=== PATIENT | female | born 1935 | race Caucasian/White ===

== ENCOUNTER 2017-07-06 08:34 | Day surgery (SDC) | payer MEDICARE, MEDICAID ==
[2017-07-06] VITALS (11 sets, daily range): BP systolic 118–134; BP diastolic 55–86
[~2017-07-06] VITALS: Ht 167.6 cm; Wt 66.3 kg
[~2017-07-06 08:34] MED LIST: ALPR.25T PO; ALPR0.2550 PO; AMLO5TAB2 PO; ASP81TEC PO; ASPI-479 PO; ATOR40TA70 PO; CLOP75TA PO; CLOP75TA69 PO; INDA1.25 PO; NS IV 1000 ML 3,000 ML ONE; OMEG-33 PO
[2017-07-06] MEDS ORDERED: LIDOCAINE 1% INJ 20 ML 20 ML VIAL ONE (09:07)
[2017-07-06] MEDS ORDERED: HEParin 1000 UNIT/ML (10ML VIAL) FOR BOLUS ONE (09:07)
[2017-07-06 09:30] LABS: HEMOGLOBIN 15.9 G/DL (11.5-16.0); MEAN PLATELET VOLUME 11.1 FL (7.4-10.4); RED BLOOD COUNT 5.33 10^6/uL (4.35-5.85); RED CELL DISTRIBUTION WIDTH 14.7 % (10.0-14.5)
[2017-07-06] MEDS ORDERED: NS IV 1000 ML 1,000 ML IV SCH ×2 (09:30→11:21)
[2017-07-06] MEDS ORDERED: AMLO10TA2 PO (09:36)
[2017-07-06] MEDS ORDERED: ROSU10TA26 PO (09:37)
[2017-07-06] MEDS ORDERED: OMEG100032 PO (09:38)
[2017-07-06 09:48] LABS: PROTHROMBIN TIME PATIENT 12.8 SEC (12.2-14.7)
--- NOTE | 2017-07-06 09:52 | Diagnostic Imaging Report ---
INDICATION: Pre-heart catheterization. TIME OF EXAMINATION: 9:30 AM. COMPARISON: 04/30/2015. FINDINGS: The heart size is normal. There is a nodular density over the right lung base measuring 18 mm in size. This is new since the prior exam from 04/30/2015. The remaining lung tamayo are clear. No effusion or pneumothorax is seen. IMPRESSION: New 18 mm pulmonary nodule in the right base since the study from April 2015. A CT chest is recommended for further characterization. Dr. Mitchell was notified of these results prior to this dictation. Dictated by: Dictated on workstation # [id number]
[2017-07-06 09:58] LABS: ALANINE AMINOTRANSFERASE 9 U/L (0-55); ALBUMIN 4.4 GM/DL (3.2-4.5); ALKALINE PHOSPHATASE 82 U/L (40-136); BILIRUBIN,TOTAL 0.6 MG/DL (0.1-1.0); BUN/CREATININE RATIO 18; CALCIUM 10.2 MG/DL (8.5-10.1); CARBON DIOXIDE 29 MMOL/L (21-32); CHLORIDE 102 MMOL/L (98-107); CHOLESTEROL 173 MG/DL (< 200); CREATININE SERUM 0.78 MG/DL (0.60-1.30); GFR ESTIMATED > 60; GLUCOSE 123 MG/DL (70-105); HDL CHOLESTEROL 77 MG/DL (40-60); POTASSIUM 3.3 MMOL/L (3.6-5.0); SODIUM 141 MMOL/L (135-145); TOTAL PROTEIN 7.6 GM/DL (6.4-8.2); TRIGLYCERIDES 100 MG/DL (<150); VLDL CHOLESTEROL 20 MG/DL (5-40)
[2017-07-06] MEDS ORDERED: MIDAZOLAM 5 MG/5 ML (VERSED) VIAL ONE (10:06)
[2017-07-06] MEDS ORDERED: fentaNYL INJECTION 100 MCG/2 ML AMP ONE (10:06)
--- NOTE | 2017-07-06 10:14 | Cardiac Procedure Note-CS/ASA ---
Pre-Procedure Note Pre-Op Procedure Note H&P Reviewed The H&P was reviewed, patient examined and no changes noted. Date H&P Reviewed: July 06, 2017 Time H&P Reviewed: 10:14 Conscious Sedation Pre-Proced Time Reviewed: 10:14 ASA Class: 3 Airway Mallampati Classification: (twenty-nine palms appropriate class) I. II. III, IV Lungs Heart ASA score ASA 1: a normal healthy patient ASA 2: a patient with a mild systemic disease (mid diabetes, controlled hypertension, obesity x ASA 3: a patient with a severe systemic disease that limits activity (angina , COPD, prior Myocardial infarction) ASA 4: a patient with an incapacitating disease that is a constant threat to life (CHF, renal failure) ASA 5: a moribund patient not expected to survive 24 hrs. (ruptured aneurysm) ASA 6: a declared brain patient whose organs are being harvested. For emergent operations, add the letter E after the classification Grade 3 Sedation Plan: Analgesia, Amnesia, Plan communicated to team members, Discussed options with patient/fam, Discussed risks with patient/fam Note The patient is an appropriate candidate to undergo the planned procedure, sedation, and anesthesia. The patient immediately re-assessed prior to indication. SEBASTIÁN ZHANG MD July 06, 2017 10:14
--- NOTE | 2017-07-06 11:23 | Discharge Inst-Post CATH ---
Discharge Inst-CATH Post Cardiac Cath D/C Inst Follow Up/Plan Appointment with Dr. Avina's office next Tuesday at 1 p.m. for evaluation for pulmonary nodules Appointment with Dr. Mitchell's office in 2-4 week CARDIAC CATH DISCHARGE INSTRUCTIONS *Hold Metformin for 48 hours post heart cath. ACTIVITY * Go Home directly and rest. * Limit activity of the leg (or wrist if it was used) for 7 days including aerobics, swimming, jogging, bicycling, etc. * Restrict stair-climbing for 7 days if possible, if not, climb up with your non -cath leg, then bring together on the same step. * Avoid lifting, pushing, pulling or excessive movement of the affected extremity for 7 days. * Customary sexual activity may be resumed after 2 days-use caution not to use a position that strains or causes pain to the affected extremity. * No driving for 24 hours. * NO SMOKING. * Avoid straining for bowel movements for 7 days. * Gentle walking on level ground is allowed. * Returning to work will depend on the type of procedure and the results. Your doctor will discuss this with you. CALL YOUR DOCTOR FOR ANY OF THE FOLLOWING: *If bleeding from the puncture site occurs- Apply gentle pressure to site with clean cloth and call your doctor or EMS. * If a knot or lump forms under the skin, increases in size, or causes pain. * If bruising appears to be worsening or moving further down your leg instead of disappearing. * Temperature above 101 F. CARE OF YOUR GROIN INCISION; * Bruising or purple discoloration of the skin near the puncture site is common. * You may shower only, no bathtub bathing for 5 days. Be careful to avoid slipping as your leg may feel stiff. * If a closure device was used on your femoral artery, please see the attached guide regarding care of the device and your leg. * REMOVE the dressing from your groin the next day after your procedure in the shower. CARE OF YOUR WRIST INCISION; * Bruising or purple discoloration of the skin near the puncture site is common. * You may shower. * DO NOT submerge wrist. * Remove dressing in 24 hours. SEBASTIÁN MITCHELL MD July 06, 2017 11:23
[2017-07-06] MEDS ORDERED: PATIENT MAY USE OWN MEDS, ALL PO SCH (11:30)
--- NOTE | 2017-07-06 11:37 | Peripheral Report ---
Peripheral Report Physician (s)/Artificial Pearl Maker (s) Physician SEBASTIÁN ZHANG MD Pre-Procedure Diagnosis Pre-Procedure Diagnosis: peripheral arterial disease, claudication Post-Procedure Note Procedure Start Date: July 06, 2017 Name of Procedure: Abdominal aortogram Bilateral lower exudate. Runoff Additional images Third order Findings/Procedure Note PROCEDURE NOTE: After explaining the procedure to the patient, all pros and cons were explained , all questions were answered. The patient signed the consent and then she was placed on the cardiac catheterization laboratory. The patient was placed on the cardiac catheterization laboratory. Groin was prepped SL fashion local anesthesia was used. Sheath placed in the right femoral artery. Rim catheter was advanced to the abdominal aorta and crossed over, then advanced to the left common iliac artery, runoff to the left lower except he was done, then the stork wire was advanced down to the popliteal artery and a straight catheter was placed down in the popliteal artery. 2 stages angiogram was done with DSA for evaluation of the trifurcation then at the foot level, the straight catheter was as the popliteal artery level. It was flushed with saline and pressure was measured then pulled to the mid SFA and pressure was measured and there was one 2 mmHg gradient then it was pulled to the proximal SFA and pressure was measured and a total gradient between the proximal SFA and the popliteal artery was 40 mmHg. I performed angiogram again which showed moderate disease nonobstructive disease. Below the trifurcation she is known to have severe disease. Then the straight catheter was exchanged into a pigtail catheter and abdominal echogram was done. location noted. Runoff of the right lower except he was done through the sheath. At the end of procedure Mynx was used FINDINGS: Abdominal aortogram showed atherosclerotic disease with mild disease nonobstructive disease Right lower extremity runoff showed mild disease down to the trifurcation, moderate disease below the trifurcation. Left lower exudate. Runoff was done at multiple level at the level of the left iliac artery then at the proximal SFA then popliteal artery with 2 angiogram. Showing patent stent with mild to moderate disease in the SFA stents nonobstructive disease with a gradient up to 40 mmHg, at the trifurcation there is severe stenosis/total occlusion reconstructed by collaterals with two-vessel disease down to the foot which has been present in 2016 did not change compared to the study. Pressure gradient at the popliteal artery was 70/45 mean of 56 Mid SFA 89/47 mean of 65 Proximal SFA 110/48 mean of 68 CONCLUSIONS: 1. Total occlusion at the tibial peroneal trunk on the left lower extremity, the anterior and posterior tibial artery are reconstructed by collaterals which has been present in 2016, did not change compare to that study. 2. Patent stent extending from the proximal SFA to the popliteal artery on the left side with mild to moderate disease with a gradient of 40 mmHg. 3. Mild to moderate disease at the right lower extremity down to the trifurcation 4. Atherosclerotic disease in the abdominal aorta and bifurcation, no aneurysm or dissection DISCUSSION AND RECOMMENDATIONS: Patient has mild claudication, no ischemia, I recommend medical management at this time and monitoring her closely. Anesthesia Type: Conscious Sedation Estimated blood loss (mL): 10 ml Contrast Amount: 40 ml Total Radiation Dose: 59 mGy Post-Procedure Diagnosis Post-operative diagnosis: Claudication Peripheral arterial disease Hypertension Hyperlipidemia SEBASTIÁN ZHANG MD July 06, 2017 11:37
== END 2017-07-06 15:50 | disposition home or self-care (01) ==
LOC: CATH 08:34 → SURG 11:25 → CATH 15:50
PROVIDERS: ATTEND Internal Medicine Cardiovascular Disease
DX: I70.203 Unspecified atherosclerosis of native arteries of extremities, bilateral legs (principal); I10 Essential (primary) hypertension; E78.5 Hyperlipidemia, unspecified; Z11.2 Encounter for screening for other bacterial diseases
CPT/HCPCS: 36248; 36415; 71045; 75625; 75716; 80053; 80061; 85027; 85610; 85730; 87081; 93005

== ENCOUNTER → 2017-07-12 | Outpatient (CLI) | payer MEDICARE, MEDICAID ==
[~2017-07-12] MED LIST changes: +AMLO10TA2 PO; -NS IV 1000 ML 3,000 ML ONE; +OMEG100032 PO; +ROSU10TA26 PO
--- NOTE | 2017-07-12 14:48 | Diagnostic Imaging Report ---
PROCEDURE: CT chest without contrast. TECHNIQUE: Multiple contiguous axial images were obtained through the chest without the use of intravenous contrast. INDICATION: Lung nodule. There are no prior CT chest examinations available for comparison. The plain film examination of the chest performed 07/06/2017 noted a 1.8 cm nodule overlying the right lung base. That finding is evident on this study. The nodule lies in the lateral aspect of the right lung base and measures approximately 1.5 x 1.7 cm. This nodule is not calcified and has a somewhat of an irregular border. I do feel it should be considered neoplastic until proven otherwise. If further imaging is desired, PET CT would be recommended. Ultimately, a CT-guided biopsy would most likely be necessary. The lungs are otherwise clear. The lungs are mildly hyperexpanded and this appearance does suggest COPD. There is no sign of failure, pneumonia or pleural effusion to indicate an acute abnormality. The heart size is within normal limits. Aorta is not abnormally dilated. There is no obvious mediastinal or hilar adenopathy. The thyroid gland where visualized is unremarkable. There is no breast mass identified. The sections to the upper abdomen failed to show any evidence for an acute abnormality. The bone windows are unremarkable for fracture or for a destructive lesion. IMPRESSION: 1. There is a 1.5 x 1.7 cm noncalcified poorly defined nodule in the right lung base. This mass should be considered neoplastic until proven otherwise. Recommendations as above. 2. There is no other mass identified and there is no sign of an acute cardiopulmonary abnormality. Dictated by: Dictated on workstation # [id number]
== END ==
LOC: RAD 14:09
PROVIDERS: ATTEND Nurse Practitioner Family
DX: R91.1 Solitary pulmonary nodule (principal)
CPT/HCPCS: 71250

== ENCOUNTER → 2017-07-20 | Outpatient (CLI) | payer MEDICARE, MEDICAID | LOC: RT 11:17 | PROVIDERS: ATTEND Nurse Practitioner Family | DX: R91.8 Other nonspecific abnormal finding of lung field (principal) | CPT/HCPCS: 94060; 94726; 94729 ==

== ENCOUNTER → 2017-07-26 | Outpatient (CLI) | payer MEDICARE, MEDICAID ==
--- NOTE | 2017-07-26 13:22 | Diagnostic Imaging Report ---
INDICATION: Right lung mass. TECHNIQUE: Serum blood glucose level at time of injection is 114 mg/dL. The patient was administered 12.8 mCi of F-18 FDG intravenously administered in the left antecubital location and PET imaging was performed from the top of the skull to the mid thighs. Noncontrast CT was also performed for attenuation correction and anatomic correlation. COMPARISON: Correlation is made with recent conventional CT of the chest from 07/12/2017. FINDINGS: There is symmetric activity within the brain. Soft tissues of the neck are unremarkable. The lobulated mass identified in the right middle lobe on prior CT does show intense hypermetabolism with an SUV max of approximately 8.1. No other hypermetabolic foci within the lung parenchyma is seen. Evon and mediastinum are unremarkable. Physiologic activity within the liver and spleen as well as the genitourinary and GI tracts noted. No abnormal foci of hypermetabolism in the abdomen or pelvis are identified. IMPRESSION: Hypermetabolic mass right middle lobe corresponding with a CT abnormality. This would be suggestive of primary lung neoplasm. No mediastinal or hilar hypermetabolism is identified. Dictated by: Dictated on workstation # [id number]
== END ==
LOC: RAD 10:11
PROVIDERS: ATTEND Internal Medicine Critical Care Medicine
DX: R91.8 Other nonspecific abnormal finding of lung field (principal); R93.8 Abnormal findings on diagnostic imaging of other specified body structures; R63.4 Abnormal weight loss; Z72.0 Tobacco use; Z85.3 Personal history of malignant neoplasm of breast

== ENCOUNTER → 2017-08-17 | Outpatient (CLI) | payer MEDICARE, MEDICAID ==
[2017-08-17] VITALS (12 sets, daily range): BP systolic 105–148; BP diastolic 45–72
[~2017-08-17] VITALS: Ht 167.6 cm; Wt 60.0 kg
[~2017-08-17] MED LIST changes: +HYDROcodone/APAP 5 MG/325 MG (LORTAB) TAB PO PRN; +LIDOCAINE 1% INJ 20 ML 20 ML VIAL INJ ONE; +LIDOCAINE 1% INJ 20 ML 20 ML VIAL ONE
[2017-08-17 08:43] LABS: MEAN PLATELET VOLUME 10.6 FL (7.4-10.4); RED BLOOD COUNT 5.47 10^6/uL (4.35-5.85); RED CELL DISTRIBUTION WIDTH 15.1 % (10.0-14.5); WHITE BLOOD COUNT 9.5 10^3/uL (4.3-11.0)
[2017-08-17 08:55] LABS: PROTHROMBIN TIME PATIENT 12.6 SEC (12.2-14.7)
--- NOTE | 2017-08-17 10:13 | Pre-Procedure Progress Note ---
Pre-Procedure Progress Note H&P Reviewed The H&P was reviewed, patient examined and no changes noted. Date H&P Reviewed: Aug 17, 2017 Time H&P Reviewed: 09:00 Pre-Procedure Diagnosis: Right lung mass ASHISH DUNNE MD Aug 17, 2017 10:13
--- NOTE | 2017-08-17 10:46 | Diagnostic Imaging Report ---
INDICATION: Right lung mass. Patient presents for right lung biopsy. PROCEDURE: After informed written consent was obtained from the patient, the patient was brought to the CT suite placed on the table in the supine position. Axial imaging through the chest was performed to evaluate appropriate entry site. The right chest was then prepped and draped in the usual sterile fashion. A small amount of 1% lidocaine was utilized for local anesthesia. A 20-gauge coaxial Temno needle was advanced and placed with its tip along the margin of the spiculated mass in the right middle lobe. A total of three core biopsies were obtained. A blood patch was injected during withdrawal of the needle. Hemostasis was obtained using manual compression. The patient tolerated the procedure well. No significant pneumothorax is seen. Patient did have small amount of hemoptysis during the procedure. Patient was placed on her right side after the needle was withdrawn for several minutes due to hemoptysis. IMPRESSION: CT-guided biopsy of the spiculated mass in the right middle lobe, as described. Pathology results are currently pending. Dictated by: Dictated on workstation # [id number]
--- NOTE | 2017-08-17 11:19 | Diagnostic Imaging Report ---
INDICATION: Right lung biopsy. TIME OF EXAM: 10:58 AM COMPARISON: Correlation is made with prior study from 07/06/2017. FINDINGS: Expiratory chest radiograph was obtained. No significant pneumothorax is identified post lung biopsy. No effusion is seen. IMPRESSION: No significant pneumothorax is detected. Dictated by: Dictated on workstation # [id number]
== END ==
LOC: SDC 08:07
PROVIDERS: ATTEND Internal Medicine Critical Care Medicine
DX: C34.2 Malignant neoplasm of middle lobe, bronchus or lung (principal); R06.02 Shortness of breath; R63.4 Abnormal weight loss; J44.9 Chronic obstructive pulmonary disease, unspecified; F17.210 Nicotine dependence, cigarettes, uncomplicated; Z79.82 Long term (current) use of aspirin; Z79.899 Other long term (current) drug therapy
CPT/HCPCS: 36415; 71045; 77012; 85027; 85610; 85730; 88305; 88344

== ENCOUNTER 2017-08-26 12:14 | Outpatient (RCR) | payer MEDICARE, MEDICAID ==
[~2017-08-26 12:14] MED LIST changes: -AMLO10TA2 PO; +AMLO10TA6 PO; -AMLO5TAB2 PO; +AMLO5TAB7 PO; -HYDROcodone/APAP 5 MG/325 MG (LORTAB) TAB PO PRN; -LIDOCAINE 1% INJ 20 ML 20 ML VIAL INJ ONE; -LIDOCAINE 1% INJ 20 ML 20 ML VIAL ONE; -ROSU10TA26 PO; +ROSU10TA27 PO
== END 2017-11-22 13:06 | disposition home or self-care (01) ==
LOC: ONC 12:14
PROVIDERS: ATTEND Internal Medicine Hematology & Oncology
DX: C34.2 Malignant neoplasm of middle lobe, bronchus or lung (principal); J44.9 Chronic obstructive pulmonary disease, unspecified; F17.210 Nicotine dependence, cigarettes, uncomplicated; Z79.82 Long term (current) use of aspirin; Z79.899 Other long term (current) drug therapy
CPT/HCPCS: 99205

== ENCOUNTER 2017-11-22 13:09 | Outpatient (RCR) | payer MEDICARE, MEDICAID | END 2017-12-04 | disposition home or self-care (01) | LOC: ONC 13:09 | PROVIDERS: ATTEND Internal Medicine Hematology & Oncology | DX: C34.2 Malignant neoplasm of middle lobe, bronchus or lung (principal); J44.9 Chronic obstructive pulmonary disease, unspecified; F17.210 Nicotine dependence, cigarettes, uncomplicated; Z79.82 Long term (current) use of aspirin; Z79.899 Other long term (current) drug therapy | CPT/HCPCS: 99213 ==

== ENCOUNTER → 2018-01-09 | Outpatient (CLI) | payer MEDICARE, MEDICAID ==
[~2018-01-09] MED LIST changes: +IOHEXOL 350 MG/ML 100 ML (OMNIPAQUE 350) VIAL IV ONE; +NS 250 ML (IVPB) BAG IV ONE; +RECEIVED CONTRAST (Hold Metformin) IV SCH
--- NOTE | 2018-01-09 11:16 | Diagnostic Imaging Report ---
PROCEDURE: CT chest with contrast only. TECHNIQUE: Multiple contiguous axial images were obtained through the chest after administration of intravenous contrast. INDICATION: Lung carcinoma, followup. Patient is status post radiation therapy. COMPARISON: Correlation is made with prior CT chest from 07/12/2017. FINDINGS: No axillary lymphadenopathy is seen. No definite mediastinal or hilar lymphadenopathy is detected. No pericardial or pleural fluid is identified. The mass in the right upper lobe has significantly decreased in size. The mass now measures approximately 0.7 x 0.9 cm compared with 1.5 x 1.7 cm. No new mass is seen. The upper abdomen is unremarkable. IMPRESSION: Significant decrease in size of right upper lobe mass when compared with prior CT from 07/12/2017. No thoracic lymphadenopathy or effusion is detected. Dictated by: Dictated on workstation # [id number]
== END ==
LOC: RAD 10:17
PROVIDERS: ATTEND Internal Medicine Hematology & Oncology
DX: C34.90 Malignant neoplasm of unspecified part of unspecified bronchus or lung (principal); Z92.3 Personal history of irradiation
CPT/HCPCS: 71260

== ENCOUNTER 2018-01-11 08:38 | Outpatient (RCR) | payer MEDICARE, MEDICAID ==
[2018-01-09 10:08] LABS: BASOPHILS # (AUTO) 0.1 10^3/uL (0.0-0.1); BASOPHILS % (AUTO) 1 % (0-10); EOSINOPHILS # (AUTO) 0.2 10^3/uL (0.0-0.3); EOSINOPHILS % (AUTO) 2 % (0-10); HEMATOCRIT 46 % (35-52); HEMOGLOBIN 15.5 G/DL (11.5-16.0); LYMPHOCYTES # (AUTO) 2.3 X 10^3 (1.0-4.0); LYMPHOCYTES % (AUTO) 25 % (12-44); MEAN CORPUSCULAR HEMOGLOBIN 30 PG (25-34); MEAN CORPUSCULAR HGB CONC 34 G/DL (32-36); MEAN CORPUSCULAR VOLUME 88 FL (80-99); MEAN PLATELET VOLUME 10.5 FL (7.4-10.4); MONOCYTES # (AUTO) 0.7 X 10^3 (0.0-1.0); MONOCYTES % (AUTO) 8 % (0-12); NEUTROPHILS # (AUTO) 5.9 X 10^3 (1.8-7.8); NEUTROPHILS % (AUTO) 65 % (42-75); PLATELET COUNT 284 10^3/uL (130-400); RED BLOOD COUNT 5.15 10^6/uL (4.35-5.85); RED CELL DISTRIBUTION WIDTH 14.8 % (10.0-14.5); WHITE BLOOD COUNT 9.1 10^3/uL (4.3-11.0)
[2018-01-09 10:29] LABS: ALANINE AMINOTRANSFERASE 11 U/L (0-55); ALBUMIN 4.2 GM/DL (3.2-4.5); ALKALINE PHOSPHATASE 98 U/L (40-136); BILIRUBIN,TOTAL 0.5 MG/DL (0.1-1.0); BUN/CREATININE RATIO 16; CARBON DIOXIDE 27 MMOL/L (21-32); CHLORIDE 103 MMOL/L (98-107); CREATININE SERUM 0.82 MG/DL (0.60-1.30); GFR ESTIMATED > 60; GLUCOSE 112 MG/DL (70-105); POTASSIUM 3.4 MMOL/L (3.6-5.0); SODIUM 140 MMOL/L (135-145); TOTAL PROTEIN 7.1 GM/DL (6.4-8.2)
[~2018-01-11 08:38] MED LIST changes: -IOHEXOL 350 MG/ML 100 ML (OMNIPAQUE 350) VIAL IV ONE; -NS 250 ML (IVPB) BAG IV ONE; -RECEIVED CONTRAST (Hold Metformin) IV SCH
== END 2018-03-14 | disposition home or self-care (01) ==
LOC: ONC 08:38
PROVIDERS: ATTEND Internal Medicine Hematology & Oncology
DX: C34.2 Malignant neoplasm of middle lobe, bronchus or lung (principal); J44.9 Chronic obstructive pulmonary disease, unspecified; F17.210 Nicotine dependence, cigarettes, uncomplicated; Z79.82 Long term (current) use of aspirin; Z79.899 Other long term (current) drug therapy
CPT/HCPCS: 36415; 80053; 85025; 99213

== ENCOUNTER → 2018-01-31 | Outpatient (CLI) | payer MEDICARE, MEDICAID | LOC: CARD 13:30 | PROVIDERS: ATTEND Internal Medicine Cardiovascular Disease | DX: J44.9 Chronic obstructive pulmonary disease, unspecified (principal); R94.39 Abnormal result of other cardiovascular function study; I70.91 Generalized atherosclerosis; I10 Essential (primary) hypertension; E78.5 Hyperlipidemia, unspecified; I73.9 Peripheral vascular disease, unspecified; R91.8 Other nonspecific abnormal finding of lung field; I07.1 Rheumatic tricuspid insufficiency | CPT/HCPCS: 93306 ==

== ENCOUNTER → 2018-03-28 | Outpatient (CLI) | payer MEDICARE, MEDICAID ==
[~2018-03-28] MED LIST changes: -AMLO10TA6 PO; +AMLO10TA7 PO; -AMLO5TAB7 PO; +AMLO5TAB9 PO
--- NOTE | 2018-03-28 16:56 | Diagnostic Imaging Report ---
INDICATION: Lung cancer. Study is performed for subsequent treatment strategy and restaging as well as evaluate response to treatment. TECHNIQUE: Serum blood glucose level at the time of injection was 104 mg/dL. Patient was administered 12.6 cm F-18 FDG intravenously in the right antecubital location and PET imaging from the top of the skull to the mid thighs was performed. Noncontrast CT was also performed for attenuation correction and anatomic correlation. COMPARISON: Correlation is made with recent CT chest from 01/09/2018 as well as prior PET/CT from 07/26/2017. FINDINGS: Symmetric activity throughout the brain is identified. Soft tissues of the neck are unremarkable. A hypermetabolic mass in the lateral portion of the right middle lobe is again noted demonstrating an SUV max of approximately 8.0 compared to 8.1 on prior study. This mass measures approximately 1.3 cm compared with 1.8 cm on prior PET study. However, this lesion is slightly larger than conventional CT chest study from 01/09/2018 where the lesion measured approximately 9 mm. In addition to this lesion, there is a new nodule slightly more inferior and anterior to this lesion in the lateral portion of the right middle lobe measuring 6 mm, suggestive of a new satellite nodule. This has SUV max of approximately 5.8. No additional pulmonary parenchymal hypermetabolic regions are seen. Evon and mediastinum are unremarkable. There is physiologic activity within the GI and tracts of the abdomen and pelvis. No suspicious hypermetabolic foci are present. IMPRESSION: 1. Hypermetabolic mass lateral portion of right middle lobe, slightly smaller when compared with the prior PET study from 07/26/2017 but slightly larger when compared with recent conventional CT chest from January 2018. There is a new satellite hypermetabolic nodule slightly inferior and lateral to this nodule in the lateral portion of the right middle lobe, new since prior imaging. Dictated by: Dictated on workstation # [id number]
== END ==
LOC: RAD 11:26
PROVIDERS: ATTEND Nurse Practitioner Adult Health
DX: C34.2 Malignant neoplasm of middle lobe, bronchus or lung (principal)

== ENCOUNTER → 2018-05-31 | Outpatient (CLI) | payer MEDICARE, MEDICAID ==
--- NOTE | 2018-05-31 13:41 | Diagnostic Imaging Report ---
PROCEDURE: CT head with and without contrast. TECHNIQUE: Multiple contiguous axial images were obtained through the brain before and after the administration of intravenous contrast. Auto Exposure Controls were utilized during the CT exam to meet ALARA standards for radiation dose reduction. INDICATION: Lung carcinoma and breast carcinoma. COMPARISON: No prior studies are available for comparison. FINDINGS: The ventricles and sulci are within normal limits. No sulcal effacement, midline shift, or hemorrhage is detected. The cisterns are patent. Visualized paranasal sinuses are clear. Postcontrast images are without abnormal enhancement. No enhancing lesion is seen. IMPRESSION: Unremarkable pre- and post-contrast CT of the brain. No acute feature is seen. There is no evidence of intracranial metastatic disease. Dictated by: Dictated on workstation # [id number]
== END ==
LOC: RAD 12:58
PROVIDERS: ATTEND Nurse Practitioner Adult Health
DX: C34.90 Malignant neoplasm of unspecified part of unspecified bronchus or lung (principal); C50.919 Malignant neoplasm of unspecified site of unspecified female breast; R42 Dizziness and giddiness
CPT/HCPCS: 70470

== ENCOUNTER 2018-06-27 10:17 | Outpatient (RCR) | payer MEDICARE, MEDICAID ==
[2018-04-03 14:11] LABS: BASOPHILS # (AUTO) 0.1 10^3/uL (0.0-0.1); BASOPHILS % (AUTO) 1 % (0-10); EOSINOPHILS # (AUTO) 0.2 10^3/uL (0.0-0.3); EOSINOPHILS % (AUTO) 2 % (0-10); HEMATOCRIT 45 % (35-52); LYMPHOCYTES # (AUTO) 2.4 X 10^3 (1.0-4.0); LYMPHOCYTES % (AUTO) 27 % (12-44); MEAN CORPUSCULAR HEMOGLOBIN 30 PG (25-34); MEAN CORPUSCULAR HGB CONC 34 G/DL (32-36); MEAN CORPUSCULAR VOLUME 89 FL (80-99); MEAN PLATELET VOLUME 10.6 FL (7.4-10.4); MONOCYTES # (AUTO) 0.6 X 10^3 (0.0-1.0); MONOCYTES % (AUTO) 7 % (0-12); NEUTROPHILS # (AUTO) 5.6 X 10^3 (1.8-7.8); NEUTROPHILS % (AUTO) 64 % (42-75); PLATELET COUNT 261 10^3/uL (130-400); RED CELL DISTRIBUTION WIDTH 14.8 % (10.0-14.5); WHITE BLOOD COUNT 8.9 10^3/uL (4.3-11.0)
[2018-04-03 14:28] LABS: ALBUMIN 4.1 GM/DL (3.2-4.5); BILIRUBIN,TOTAL 0.4 MG/DL (0.1-1.0); CALCIUM 9.3 MG/DL (8.5-10.1); CREATININE SERUM 0.9 MG/DL (0.60-1.30); POTASSIUM 3.5 MMOL/L (3.6-5.0); TOTAL PROTEIN 6.6 GM/DL (6.4-8.2)
[2018-04-26 15:05] LABS: BASOPHILS # (AUTO) 0.1 10^3/uL (0.0-0.1); BASOPHILS % (AUTO) 1 % (0-10); EOSINOPHILS # (AUTO) 0.2 10^3/uL (0.0-0.3); EOSINOPHILS % (AUTO) 2 % (0-10); HEMATOCRIT 47 % (35-52); HEMOGLOBIN 15.7 G/DL (11.5-16.0); LYMPHOCYTES # (AUTO) 2.4 X 10^3 (1.0-4.0); LYMPHOCYTES % (AUTO) 29 % (12-44); MEAN CORPUSCULAR HEMOGLOBIN 30 PG (25-34); MEAN CORPUSCULAR HGB CONC 34 G/DL (32-36); MEAN CORPUSCULAR VOLUME 88 FL (80-99); MEAN PLATELET VOLUME 10.7 FL (7.4-10.4); MONOCYTES # (AUTO) 0.6 X 10^3 (0.0-1.0); MONOCYTES % (AUTO) 7 % (0-12); NEUTROPHILS # (AUTO) 5.1 X 10^3 (1.8-7.8); NEUTROPHILS % (AUTO) 61 % (42-75); PLATELET COUNT 258 10^3/uL (130-400); RED CELL DISTRIBUTION WIDTH 14.6 % (10.0-14.5); WHITE BLOOD COUNT 8.3 10^3/uL (4.3-11.0)
[2018-04-26 15:26] LABS: ALBUMIN 4.2 GM/DL (3.2-4.5); BILIRUBIN,TOTAL 0.4 MG/DL (0.1-1.0); CALCIUM 9.7 MG/DL (8.5-10.1); CREATININE SERUM 1.02 MG/DL (0.60-1.30); MAGNESIUM 2.1 MG/DL (1.8-2.4); POTASSIUM 3.5 MMOL/L (3.6-5.0); TOTAL PROTEIN 7.1 GM/DL (6.4-8.2)
[2018-05-08 13:03] LABS: BASOPHILS % (AUTO) 0 % (0-10); EOSINOPHILS % (AUTO) 0 % (0-10); HEMATOCRIT 42 % (35-52); LYMPHOCYTES # (AUTO) 0.5 X 10^3 (1.0-4.0); LYMPHOCYTES % (AUTO) 6 % (12-44); MEAN CORPUSCULAR HEMOGLOBIN 29 PG (25-34); MEAN CORPUSCULAR HGB CONC 33 G/DL (32-36); MEAN CORPUSCULAR VOLUME 88 FL (80-99); MEAN PLATELET VOLUME 11.2 FL (7.4-10.4); MONOCYTES % (AUTO) 1 % (0-12); NEUTROPHILS # (AUTO) 7.7 X 10^3 (1.8-7.8); NEUTROPHILS % (AUTO) 93 % (42-75); PLATELET COUNT 291 10^3/uL (130-400); RED CELL DISTRIBUTION WIDTH 14.3 % (10.0-14.5); WHITE BLOOD COUNT 8.2 10^3/uL (4.3-11.0)
[2018-05-08 13:23] LABS: CALCIUM 9.8 MG/DL (8.5-10.1); CREATININE SERUM 1.1 MG/DL (0.60-1.30)
[2018-05-08 13:27] LABS: POTASSIUM 4.7 MMOL/L (3.6-5.0)
[2018-05-15 13:27] LABS: BASOPHILS % (AUTO) 0 % (0-10); EOSINOPHILS % (AUTO) 0 % (0-10); HEMATOCRIT 44 % (35-52); HEMOGLOBIN 14.5 G/DL (11.5-16.0); LYMPHOCYTES # (AUTO) 0.3 X 10^3 (1.0-4.0); LYMPHOCYTES % (AUTO) 11 % (12-44); MEAN CORPUSCULAR HEMOGLOBIN 29 PG (25-34); MEAN CORPUSCULAR HGB CONC 33 G/DL (32-36); MEAN CORPUSCULAR VOLUME 88 FL (80-99); MEAN PLATELET VOLUME 10.5 FL (7.4-10.4); MONOCYTES % (AUTO) 1 % (0-12); NEUTROPHILS # (AUTO) 2.7 X 10^3 (1.8-7.8); NEUTROPHILS % (AUTO) 88 % (42-75); PLATELET COUNT 302 10^3/uL (130-400); WHITE BLOOD COUNT 3.1 10^3/uL (4.3-11.0)
[2018-05-15 13:44] LABS: ALBUMIN 4.3 GM/DL (3.2-4.5); BILIRUBIN,TOTAL 0.4 MG/DL (0.1-1.0); CALCIUM 9.8 MG/DL (8.5-10.1); CREATININE SERUM 1.14 MG/DL (0.60-1.30); MAGNESIUM 1.9 MG/DL (1.8-2.4); POTASSIUM 3.8 MMOL/L (3.6-5.0); TOTAL PROTEIN 7.2 GM/DL (6.4-8.2)
[2018-05-22 13:25] LABS: BASOPHILS % (AUTO) 1 % (0-10); EOSINOPHILS # (AUTO) 0.2 10^3/uL (0.0-0.3); EOSINOPHILS % (AUTO) 3 % (0-10); HEMATOCRIT 44 % (35-52); HEMOGLOBIN 14.8 G/DL (11.5-16.0); LYMPHOCYTES # (AUTO) 1.7 X 10^3 (1.0-4.0); LYMPHOCYTES % (AUTO) 29 % (12-44); MEAN CORPUSCULAR HEMOGLOBIN 30 PG (25-34); MEAN CORPUSCULAR HGB CONC 34 G/DL (32-36); MEAN CORPUSCULAR VOLUME 89 FL (80-99); MEAN PLATELET VOLUME 10.3 FL (7.4-10.4); MONOCYTES # (AUTO) 0.5 X 10^3 (0.0-1.0); MONOCYTES % (AUTO) 8 % (0-12); NEUTROPHILS # (AUTO) 3.5 X 10^3 (1.8-7.8); NEUTROPHILS % (AUTO) 59 % (42-75); PLATELET COUNT 354 10^3/uL (130-400); RED CELL DISTRIBUTION WIDTH 15.1 % (10.0-14.5); WHITE BLOOD COUNT 5.8 10^3/uL (4.3-11.0)
[2018-05-22 13:45] LABS: CALCIUM 10.1 MG/DL (8.5-10.1); CREATININE SERUM 0.98 MG/DL (0.60-1.30); POTASSIUM 3.4 MMOL/L (3.6-5.0)
[2018-05-29 13:03] LABS: BASOPHILS # (AUTO) 0.1 10^3/uL (0.0-0.1); BASOPHILS % (AUTO) 1 % (0-10); EOSINOPHILS # (AUTO) 0.2 10^3/uL (0.0-0.3); EOSINOPHILS % (AUTO) 3 % (0-10); HEMATOCRIT 41 % (35-52); HEMOGLOBIN 13.8 G/DL (11.5-16.0); LYMPHOCYTES # (AUTO) 1.8 X 10^3 (1.0-4.0); LYMPHOCYTES % (AUTO) 29 % (12-44); MEAN CORPUSCULAR HEMOGLOBIN 30 PG (25-34); MEAN CORPUSCULAR HGB CONC 33 G/DL (32-36); MEAN CORPUSCULAR VOLUME 89 FL (80-99); MEAN PLATELET VOLUME 10.6 FL (7.4-10.4); MONOCYTES # (AUTO) 0.6 X 10^3 (0.0-1.0); MONOCYTES % (AUTO) 10 % (0-12); NEUTROPHILS # (AUTO) 3.5 X 10^3 (1.8-7.8); NEUTROPHILS % (AUTO) 57 % (42-75); PLATELET COUNT 292 10^3/uL (130-400); RED CELL DISTRIBUTION WIDTH 15.2 % (10.0-14.5); WHITE BLOOD COUNT 6.2 10^3/uL (4.3-11.0)
[2018-05-29 13:20] LABS: ALANINE AMINOTRANSFERASE 14 U/L (0-55); ALBUMIN 4.1 GM/DL (3.2-4.5); ALKALINE PHOSPHATASE 87 U/L (40-136); BILIRUBIN,TOTAL 0.4 MG/DL (0.1-1.0); BUN/CREATININE RATIO 16; CALCIUM 9.6 MG/DL (8.5-10.1); CARBON DIOXIDE 26 MMOL/L (21-32); CHLORIDE 101 MMOL/L (98-107); CREATININE SERUM 0.87 MG/DL (0.60-1.30); GFR ESTIMATED > 60; GLUCOSE 106 MG/DL (70-105); MAGNESIUM 1.9 MG/DL (1.8-2.4); POTASSIUM 3.4 MMOL/L (3.6-5.0); SODIUM 140 MMOL/L (135-145); TOTAL PROTEIN 6.8 GM/DL (6.4-8.2)
[2018-06-05 13:23] LABS: BASOPHILS # (AUTO) 0.1 10^3/uL (0.0-0.1); BASOPHILS % (AUTO) 1 % (0-10); EOSINOPHILS # (AUTO) 0.1 10^3/uL (0.0-0.3); EOSINOPHILS % (AUTO) 2 % (0-10); HEMATOCRIT 41 % (35-52); HEMOGLOBIN 13.8 G/DL (11.5-16.0); LYMPHOCYTES # (AUTO) 1.9 X 10^3 (1.0-4.0); LYMPHOCYTES % (AUTO) 24 % (12-44); MEAN CORPUSCULAR HEMOGLOBIN 30 PG (25-34); MEAN CORPUSCULAR HGB CONC 34 G/DL (32-36); MEAN CORPUSCULAR VOLUME 88 FL (80-99); MEAN PLATELET VOLUME 10.3 FL (7.4-10.4); MONOCYTES # (AUTO) 0.6 X 10^3 (0.0-1.0); MONOCYTES % (AUTO) 8 % (0-12); NEUTROPHILS # (AUTO) 5.2 X 10^3 (1.8-7.8); NEUTROPHILS % (AUTO) 66 % (42-75); PLATELET COUNT 294 10^3/uL (130-400); RED CELL DISTRIBUTION WIDTH 15.2 % (10.0-14.5); WHITE BLOOD COUNT 7.8 10^3/uL (4.3-11.0)
[2018-06-05 13:46] LABS: BUN/CREATININE RATIO 20; CALCIUM 9.9 MG/DL (8.5-10.1); CARBON DIOXIDE 26 MMOL/L (21-32); CHLORIDE 100 MMOL/L (98-107); GFR ESTIMATED > 60; GLUCOSE 102 MG/DL (70-105); POTASSIUM 3.1 MMOL/L (3.6-5.0); SODIUM 139 MMOL/L (135-145)
[2018-06-12 13:39] LABS: BASOPHILS % (AUTO) 1 % (0-10); EOSINOPHILS # (AUTO) 0.1 10^3/uL (0.0-0.3); EOSINOPHILS % (AUTO) 2 % (0-10); HEMATOCRIT 39 % (35-52); HEMOGLOBIN 13.2 G/DL (11.5-16.0); LYMPHOCYTES # (AUTO) 1.9 X 10^3 (1.0-4.0); LYMPHOCYTES % (AUTO) 32 % (12-44); MEAN CORPUSCULAR HEMOGLOBIN 31 PG (25-34); MEAN CORPUSCULAR HGB CONC 34 G/DL (32-36); MEAN CORPUSCULAR VOLUME 90 FL (80-99); MEAN PLATELET VOLUME 10.4 FL (7.4-10.4); MONOCYTES # (AUTO) 0.5 X 10^3 (0.0-1.0); MONOCYTES % (AUTO) 8 % (0-12); NEUTROPHILS # (AUTO) 3.4 X 10^3 (1.8-7.8); NEUTROPHILS % (AUTO) 57 % (42-75); PLATELET COUNT 256 10^3/uL (130-400); RED CELL DISTRIBUTION WIDTH 15.7 % (10.0-14.5); WHITE BLOOD COUNT 5.9 10^3/uL (4.3-11.0)
[2018-06-12 13:56] LABS: ALANINE AMINOTRANSFERASE 21 U/L (0-55); ALKALINE PHOSPHATASE 82 U/L (40-136); BILIRUBIN,TOTAL 0.3 MG/DL (0.1-1.0); BUN/CREATININE RATIO 17; CALCIUM 9.9 MG/DL (8.5-10.1); CARBON DIOXIDE 31 MMOL/L (21-32); CHLORIDE 101 MMOL/L (98-107); CREATININE SERUM 0.84 MG/DL (0.60-1.30); GFR ESTIMATED > 60; GLUCOSE 100 MG/DL (70-105); MAGNESIUM 1.8 MG/DL (1.8-2.4); POTASSIUM 3.1 MMOL/L (3.6-5.0); SODIUM 142 MMOL/L (135-145); TOTAL PROTEIN 6.4 GM/DL (6.4-8.2)
[2018-06-19 13:23] LABS: BASOPHILS # (AUTO) 0.1 10^3/uL (0.0-0.1); BASOPHILS % (AUTO) 1 % (0-10); EOSINOPHILS # (AUTO) 0.1 10^3/uL (0.0-0.3); EOSINOPHILS % (AUTO) 2 % (0-10); HEMATOCRIT 36 % (35-52); HEMOGLOBIN 12.2 G/DL (11.5-16.0); LYMPHOCYTES # (AUTO) 1.6 X 10^3 (1.0-4.0); LYMPHOCYTES % (AUTO) 29 % (12-44); MEAN CORPUSCULAR HEMOGLOBIN 31 PG (25-34); MEAN CORPUSCULAR HGB CONC 34 G/DL (32-36); MEAN CORPUSCULAR VOLUME 90 FL (80-99); MEAN PLATELET VOLUME 10.1 FL (7.4-10.4); MONOCYTES # (AUTO) 0.4 X 10^3 (0.0-1.0); MONOCYTES % (AUTO) 8 % (0-12); NEUTROPHILS # (AUTO) 3.2 X 10^3 (1.8-7.8); NEUTROPHILS % (AUTO) 60 % (42-75); PLATELET COUNT 240 10^3/uL (130-400); RED CELL DISTRIBUTION WIDTH 16.4 % (10.0-14.5); WHITE BLOOD COUNT 5.4 10^3/uL (4.3-11.0)
[2018-06-19 13:41] LABS: BUN/CREATININE RATIO 15; CALCIUM 9.7 MG/DL (8.5-10.1); CARBON DIOXIDE 28 MMOL/L (21-32); CHLORIDE 103 MMOL/L (98-107); CREATININE SERUM 0.71 MG/DL (0.60-1.30); GFR ESTIMATED > 60; GLUCOSE 101 MG/DL (70-105); MAGNESIUM 1.6 MG/DL (1.8-2.4); POTASSIUM 3.2 MMOL/L (3.6-5.0); SODIUM 140 MMOL/L (135-145)
[~2018-06-27] VITALS: Ht 162.6 cm; Wt 61.7 kg
[~2018-06-27 10:17] MED LIST changes: +FAMOTIDINE 20MG/2ML IV (CANCER CTR) IV SCH; +NS IV 1000 ML (CANCER CTR) IV SCH; +PALONOSETRON HCL 0.25 MG, DEXAMETHASONE INJECTION 10 MG in NS (IVPB) CANCER CENTER 50 ML IV SCH; +POTASSIUM CHL INJ (CANCER CTR) 20 MEQ, MAGNESIUM SULFATE (CANCER CTR) 2 GM in NS IV 100... IV SCH; +diphenhydrAMINE 25 MG TAB (BENADRYL) CANCER CENTER PO SCH; +diphenhydrAMINE 50 MG/ML INJ (CANCER CENTER) IV PRN
[2018-06-27] MEDS ORDERED: MAGNESIUM SULFATE IV ONE (11:58)
[2018-06-27] MEDS ORDERED: POTASSIUM CHL IV ONE (11:58)
[2018-06-27] MEDS ORDERED: [UNRECOGNIZED DRUG - OTHER] IV ONE (11:58)
[2018-06-27 12:04] LABS: ALANINE AMINOTRANSFERASE 19 U/L (0-55); ALBUMIN 4.3 GM/DL (3.2-4.5); ALKALINE PHOSPHATASE 101 U/L (40-136); BILIRUBIN,TOTAL 0.6 MG/DL (0.1-1.0); BUN/CREATININE RATIO 13; CALCIUM 10.6 MG/DL (8.5-10.1); CARBON DIOXIDE 31 MMOL/L (21-32); CHLORIDE 100 MMOL/L (98-107); CREATININE SERUM 0.82 MG/DL (0.60-1.30); GFR ESTIMATED > 60; GLUCOSE 111 MG/DL (70-105); MAGNESIUM 1.9 MG/DL (1.8-2.4); POTASSIUM 3.2 MMOL/L (3.6-5.0); SODIUM 141 MMOL/L (135-145); TOTAL PROTEIN 7.4 GM/DL (6.4-8.2)
== END 2018-07-02 | disposition home or self-care (01) ==
LOC: ONC 10:17
PROVIDERS: ATTEND Internal Medicine Hematology & Oncology
DX: Z51.0 Encounter for antineoplastic radiation therapy (principal); Z51.11 Encounter for antineoplastic chemotherapy; C34.2 Malignant neoplasm of middle lobe, bronchus or lung; E87.6 Hypokalemia; E86.0 Dehydration; L58.9 Radiodermatitis, unspecified; W88.1XXA Exposure to radioactive isotopes, initial encounter; J44.9 Chronic obstructive pulmonary disease, unspecified; F17.210 Nicotine dependence, cigarettes, uncomplicated; R42 Dizziness and giddiness; Z79.82 Long term (current) use of aspirin; Z79.899 Other long term (current) drug therapy
CPT/HCPCS: 36415; 36591; 70470; 77290; 77295; 77300; 77307; 77334; 77336; 77417; 80048; 80053; 83735; 85025; 96360; 96361; 96365; 96375; 96413; 96417; 99211; 99213

== ENCOUNTER → 2018-06-27 | Outpatient (CLI) | payer MEDICARE, MEDICAID ==
--- NOTE | 2018-06-27 11:58 | Diagnostic Imaging Report ---
PA and lateral chest at 1029 hours. INDICATION: Lung mass. FINDINGS: The heart size is within normal limits and stable when compared to 08/17/2017. The hypermetabolic masses in the right lung base seen on the PET/CT exam of 03/28/2018 have diminished in size and are difficult to visualize on this study. The lungs are generally clear. There is no sign of failure, pneumonia or pleural effusion. Mediastinum is not widened. The osseous structures are intact. IMPRESSION: 1. The appearance of the chest has improved since the prior exam as the hypermetabolic nodules in the right lung base seen previously are difficult to visualize on this exam. 2. There is no acute cardiopulmonary abnormality noted. Dictated by: Dictated on workstation # [id number]
== END ==
LOC: RAD 10:14
PROVIDERS: ATTEND Internal Medicine Hematology & Oncology
DX: R91.8 Other nonspecific abnormal finding of lung field (principal)
CPT/HCPCS: 71046

== ENCOUNTER 2018-07-19 09:16 | Outpatient (RCR) | payer MEDICARE, MEDICAID ==
[~2018-07-19] VITALS: Ht 162.6 cm; Wt 59.4 kg
[~2018-07-19 09:16] MED LIST changes: -FAMOTIDINE 20MG/2ML IV (CANCER CTR) IV SCH; -NS IV 1000 ML (CANCER CTR) IV SCH; -PALONOSETRON HCL 0.25 MG, DEXAMETHASONE INJECTION 10 MG in NS (IVPB) CANCER CENTER 50 ML IV SCH; -POTASSIUM CHL INJ (CANCER CTR) 20 MEQ, MAGNESIUM SULFATE (CANCER CTR) 2 GM in NS IV 100... IV SCH; -diphenhydrAMINE 25 MG TAB (BENADRYL) CANCER CENTER PO SCH; -diphenhydrAMINE 50 MG/ML INJ (CANCER CENTER) IV PRN
[2018-07-19 09:33] LABS: BASOPHILS % (AUTO) 1 % (0-10); EOSINOPHILS # (AUTO) 0.1 10^3/uL (0.0-0.3); EOSINOPHILS % (AUTO) 1 % (0-10); HEMATOCRIT 41 % (35-52); HEMOGLOBIN 13.7 G/DL (11.5-16.0); LYMPHOCYTES # (AUTO) 1.4 X 10^3 (1.0-4.0); LYMPHOCYTES % (AUTO) 18 % (12-44); MEAN CORPUSCULAR HEMOGLOBIN 30 PG (25-34); MEAN CORPUSCULAR HGB CONC 33 G/DL (32-36); MEAN CORPUSCULAR VOLUME 91 FL (80-99); MEAN PLATELET VOLUME 10.1 FL (7.4-10.4); MONOCYTES # (AUTO) 0.6 X 10^3 (0.0-1.0); MONOCYTES % (AUTO) 7 % (0-12); NEUTROPHILS # (AUTO) 5.5 X 10^3 (1.8-7.8); NEUTROPHILS % (AUTO) 73 % (42-75); PLATELET COUNT 281 10^3/uL (130-400); RED CELL DISTRIBUTION WIDTH 16.5 % (10.0-14.5); WHITE BLOOD COUNT 7.6 10^3/uL (4.3-11.0)
[2018-07-19 10:00] LABS: ALANINE AMINOTRANSFERASE 14 U/L (0-55); ALBUMIN 4.1 GM/DL (3.2-4.5); ALKALINE PHOSPHATASE 87 U/L (40-136); BILIRUBIN,TOTAL 0.5 MG/DL (0.1-1.0); BUN/CREATININE RATIO 14; CALCIUM 10.2 MG/DL (8.5-10.1); CARBON DIOXIDE 25 MMOL/L (21-32); CHLORIDE 100 MMOL/L (98-107); CREATININE SERUM 0.84 MG/DL (0.60-1.30); GFR ESTIMATED > 60; GLUCOSE 114 MG/DL (70-105); MAGNESIUM 1.9 MG/DL (1.8-2.4); POTASSIUM 3.5 MMOL/L (3.6-5.0); SODIUM 139 MMOL/L (135-145); TOTAL PROTEIN 6.7 GM/DL (6.4-8.2)
[2018-08-08] MEDS ORDERED: PALONOSETRON HCL 0.25 MG, DEXAMETHASONE INJECTION 10 MG in NS (IVPB) CANCER CENTER 50 ML IV SCH (15:45)
[2018-08-08] MEDS ORDERED: NS IV 1000 ML (CANCER CTR) IV SCH (15:45)
[2018-08-08] MEDS ORDERED: FAMOTIDINE 20MG/2ML IV (CANCER CTR) IV SCH (15:45)
[2018-08-08] MEDS ORDERED: diphenhydrAMINE 25 MG TAB (BENADRYL) CANCER CENTER PO SCH (15:45)
== END 2018-09-11 12:56 | disposition home or self-care (01) ==
LOC: ONC 09:16
PROVIDERS: ATTEND Internal Medicine Hematology & Oncology
DX: C34.2 Malignant neoplasm of middle lobe, bronchus or lung (principal); J44.9 Chronic obstructive pulmonary disease, unspecified; F17.210 Nicotine dependence, cigarettes, uncomplicated; Z79.82 Long term (current) use of aspirin; Z79.899 Other long term (current) drug therapy; R42 Dizziness and giddiness
CPT/HCPCS: 80053; 83735; 85025; 99213

== ENCOUNTER → 2018-08-01 | Outpatient (CLI) | payer MEDICARE, MEDICAID ==
[~2018-08-01] MED LIST changes: +HOLD METFORMIN - RECEIVED CONTRAST 20 ML VIAL IV SCH; +IOHEXOL 350 MG/ML 100 ML (OMNIPAQUE 350) VIAL IV ONE; +NS 100 ML (IVPB) BAG IV ONE
--- NOTE | 2018-08-01 14:23 | Diagnostic Imaging Report ---
PROCEDURE: CT chest with contrast only. TECHNIQUE: Multiple contiguous axial images were obtained through the chest after administration of intravenous contrast. Auto Exposure Controls were utilized during the CT exam to meet ALARA standards for radiation dose reduction. INDICATION: Right-sided lung cancer. COMPARISON: 03/28/2018. FINDINGS: No significant adenopathy within the chest. Scattered vascular calcifications without aneurysmal dilatation of the thoracic aorta. The heart is within normal limits in size. No pericardial effusion. No pleural effusion. Mild background emphysematous changes. No pneumothorax. Previously noted nodular density within the right middle lobe is again identified. This however appears decreased in size since the prior examination. This now measures up to 0.9 cm when previously it measured 1.3 cm. Adjacent groundglass opacities about this nodule are also identified, appearing relatively similar. 0.5 cm nodular density within the right middle lobe appears stable from the prior examination. No new pulmonary nodule or opacity. Hypodensities are present within the anterior aspect of the liver about the falciform ligament, appearing more prominent than the prior examinations. Mild nodularity of the left adrenal gland, appearing stable. The right adrenal gland is unremarkable. Cyst within the superior pole of the left kidney. The visualized upper abdomen is otherwise unremarkable. [place] right curvature of the spine. Scattered osseous degenerative changes without acute osseous abnormality. IMPRESSION: 1. Slight interval decrease in previously noted dominant pulmonary nodule within the right middle lobe with the adjacent 0.5 cm nodule within the right middle lobe appearing stable from the prior examination. 2. No new pulmonary nodule or adenopathy. 3. Stable mild nodularity of the left adrenal gland. 4. Hypodensities within the anterior aspect of the liver adjacent to the falciform ligament favored to relate to focal fatty infiltration of the liver. This region should be reevaluated on followup imaging as metastatic disease is not completely excluded though felt much less likely. 5. Background emphysematous changes. Dictated by: Dictated on workstation # [id number]
== END ==
LOC: RAD 12:21
PROVIDERS: ATTEND Nurse Practitioner Adult Health
DX: C34.2 Malignant neoplasm of middle lobe, bronchus or lung (principal); E27.8 Other specified disorders of adrenal gland; J43.9 Emphysema, unspecified; K76.89 Other specified diseases of liver
CPT/HCPCS: 71260

== ENCOUNTER 2018-10-30 13:36 | Outpatient (RCR) | payer MEDICARE, MEDICAID ==
[2018-08-14 13:06] LABS: BASOPHILS % (AUTO) 1 % (0-10); EOSINOPHILS # (AUTO) 0.1 10^3/uL (0.0-0.3); EOSINOPHILS % (AUTO) 2 % (0-10); HEMATOCRIT 45 % (35-52); HEMOGLOBIN 14.8 G/DL (11.5-16.0); LYMPHOCYTES # (AUTO) 1.9 X 10^3 (1.0-4.0); LYMPHOCYTES % (AUTO) 22 % (12-44); MEAN CORPUSCULAR HEMOGLOBIN 30 PG (25-34); MEAN CORPUSCULAR HGB CONC 33 G/DL (32-36); MEAN CORPUSCULAR VOLUME 91 FL (80-99); MEAN PLATELET VOLUME 10.1 FL (7.4-10.4); MONOCYTES # (AUTO) 0.6 X 10^3 (0.0-1.0); MONOCYTES % (AUTO) 7 % (0-12); NEUTROPHILS # (AUTO) 5.9 X 10^3 (1.8-7.8); NEUTROPHILS % (AUTO) 69 % (42-75); PLATELET COUNT 269 10^3/uL (130-400); RED CELL DISTRIBUTION WIDTH 15.1 % (10.0-14.5); WHITE BLOOD COUNT 8.6 10^3/uL (4.3-11.0)
[2018-08-14 13:25] LABS: ALBUMIN 4.2 GM/DL (3.2-4.5); BILIRUBIN,TOTAL 0.5 MG/DL (0.1-1.0); CREATININE SERUM 1.04 MG/DL (0.60-1.30); POTASSIUM 2.9 MMOL/L (3.6-5.0); TOTAL PROTEIN 7.1 GM/DL (6.4-8.2)
[2018-08-21 13:26] LABS: BASOPHILS % (AUTO) 1 % (0-10); EOSINOPHILS # (AUTO) 0.2 10^3/uL (0.0-0.3); EOSINOPHILS % (AUTO) 3 % (0-10); HEMATOCRIT 44 % (35-52); HEMOGLOBIN 14.3 G/DL (11.5-16.0); LYMPHOCYTES # (AUTO) 1.7 X 10^3 (1.0-4.0); LYMPHOCYTES % (AUTO) 27 % (12-44); MEAN CORPUSCULAR HEMOGLOBIN 30 PG (25-34); MEAN CORPUSCULAR HGB CONC 33 G/DL (32-36); MEAN CORPUSCULAR VOLUME 92 FL (80-99); MEAN PLATELET VOLUME 10.6 FL (7.4-10.4); MONOCYTES # (AUTO) 0.2 X 10^3 (0.0-1.0); MONOCYTES % (AUTO) 3 % (0-12); NEUTROPHILS # (AUTO) 4.2 X 10^3 (1.8-7.8); NEUTROPHILS % (AUTO) 66 % (42-75); PLATELET COUNT 244 10^3/uL (130-400); RED CELL DISTRIBUTION WIDTH 14.6 % (10.0-14.5); WHITE BLOOD COUNT 6.4 10^3/uL (4.3-11.0)
[2018-08-21 13:42] LABS: CREATININE SERUM 1.09 MG/DL (0.60-1.30); POTASSIUM 3.5 MMOL/L (3.6-5.0)
[2018-08-28 13:02] LABS: BASOPHILS % (AUTO) 1 % (0-10); EOSINOPHILS # (AUTO) 0.1 10^3/uL (0.0-0.3); EOSINOPHILS % (AUTO) 3 % (0-10); HEMATOCRIT 42 % (35-52); HEMOGLOBIN 13.8 G/DL (11.5-16.0); LYMPHOCYTES # (AUTO) 1.6 X 10^3 (1.0-4.0); LYMPHOCYTES % (AUTO) 52 % (12-44); MEAN CORPUSCULAR HEMOGLOBIN 30 PG (25-34); MEAN CORPUSCULAR HGB CONC 33 G/DL (32-36); MEAN CORPUSCULAR VOLUME 91 FL (80-99); MEAN PLATELET VOLUME 10.2 FL (7.4-10.4); MONOCYTES # (AUTO) 0.2 X 10^3 (0.0-1.0); MONOCYTES % (AUTO) 6 % (0-12); NEUTROPHILS # (AUTO) 1.2 X 10^3 (1.8-7.8); NEUTROPHILS % (AUTO) 39 % (42-75); PLATELET COUNT 301 10^3/uL (130-400); RED CELL DISTRIBUTION WIDTH 14.4 % (10.0-14.5)
[2018-08-28 13:26] LABS: CALCIUM 9.8 MG/DL (8.5-10.1); CREATININE SERUM 1.02 MG/DL (0.60-1.30); POTASSIUM 3.1 MMOL/L (3.6-5.0)
[2018-09-04 10:18] LABS: BASOPHILS # (AUTO) 0.1 10^3/uL (0.0-0.1); BASOPHILS % (AUTO) 1 % (0-10); EOSINOPHILS # (AUTO) 0.2 10^3/uL (0.0-0.3); EOSINOPHILS % (AUTO) 4 % (0-10); HEMATOCRIT 41 % (35-52); HEMOGLOBIN 13.6 G/DL (11.5-16.0); LYMPHOCYTES # (AUTO) 1.9 X 10^3 (1.0-4.0); LYMPHOCYTES % (AUTO) 32 % (12-44); MEAN CORPUSCULAR HEMOGLOBIN 30 PG (25-34); MEAN CORPUSCULAR HGB CONC 33 G/DL (32-36); MEAN CORPUSCULAR VOLUME 90 FL (80-99); MEAN PLATELET VOLUME 9.7 FL (7.4-10.4); MONOCYTES # (AUTO) 0.8 X 10^3 (0.0-1.0); MONOCYTES % (AUTO) 13 % (0-12); NEUTROPHILS % (AUTO) 51 % (42-75); PLATELET COUNT 391 10^3/uL (130-400); RED CELL DISTRIBUTION WIDTH 14.5 % (10.0-14.5); WHITE BLOOD COUNT 5.9 10^3/uL (4.3-11.0)
[2018-09-04 10:33] LABS: BUN/CREATININE RATIO 13; CARBON DIOXIDE 28 MMOL/L (21-32); CHLORIDE 98 MMOL/L (98-107); CREATININE SERUM 0.89 MG/DL (0.60-1.30); GFR ESTIMATED > 60; GLUCOSE 131 MG/DL (70-105); POTASSIUM 3.1 MMOL/L (3.6-5.0); SODIUM 138 MMOL/L (135-145)
[2018-09-11 13:07] LABS: BASOPHILS # (AUTO) 0.1 10^3/uL (0.0-0.1); BASOPHILS % (AUTO) 0 % (0-10); EOSINOPHILS # (AUTO) 0.1 10^3/uL (0.0-0.3); EOSINOPHILS % (AUTO) 1 % (0-10); HEMATOCRIT 40 % (35-52); HEMOGLOBIN 13.2 G/DL (11.5-16.0); LYMPHOCYTES % (AUTO) 10 % (12-44); MEAN CORPUSCULAR HEMOGLOBIN 30 PG (25-34); MEAN CORPUSCULAR HGB CONC 33 G/DL (32-36); MEAN CORPUSCULAR VOLUME 90 FL (80-99); MEAN PLATELET VOLUME 9.7 FL (7.4-10.4); MONOCYTES # (AUTO) 1.5 X 10^3 (0.0-1.0); MONOCYTES % (AUTO) 8 % (0-12); NEUTROPHILS # (AUTO) 15.4 X 10^3 (1.8-7.8); NEUTROPHILS % (AUTO) 81 % (42-75); PLATELET COUNT 340 10^3/uL (130-400); RED CELL DISTRIBUTION WIDTH 15.2 % (10.0-14.5); WHITE BLOOD COUNT 19.1 10^3/uL (4.3-11.0)
[2018-09-11 13:28] LABS: ALANINE AMINOTRANSFERASE 11 U/L (0-55); ALBUMIN 3.9 GM/DL (3.2-4.5); ALKALINE PHOSPHATASE 84 U/L (40-136); BILIRUBIN,TOTAL 0.3 MG/DL (0.1-1.0); BUN/CREATININE RATIO 17; CALCIUM 10.1 MG/DL (8.5-10.1); CARBON DIOXIDE 26 MMOL/L (21-32); CHLORIDE 101 MMOL/L (98-107); CREATININE SERUM 0.88 MG/DL (0.60-1.30); GFR ESTIMATED > 60; GLUCOSE 97 MG/DL (70-105); MAGNESIUM 1.8 MG/DL (1.8-2.4); POTASSIUM 3.6 MMOL/L (3.6-5.0); SODIUM 137 MMOL/L (135-145); TOTAL PROTEIN 6.8 GM/DL (6.4-8.2)
[2018-09-18 13:18] LABS: BASOPHILS % (AUTO) 1 % (0-10); EOSINOPHILS # (AUTO) 0.3 10^3/uL (0.0-0.3); EOSINOPHILS % (AUTO) 4 % (0-10); HEMATOCRIT 42 % (35-52); HEMOGLOBIN 13.8 G/DL (11.5-16.0); LYMPHOCYTES # (AUTO) 1.9 X 10^3 (1.0-4.0); LYMPHOCYTES % (AUTO) 31 % (12-44); MEAN CORPUSCULAR HEMOGLOBIN 30 PG (25-34); MEAN CORPUSCULAR HGB CONC 33 G/DL (32-36); MEAN CORPUSCULAR VOLUME 90 FL (80-99); MEAN PLATELET VOLUME 10.6 FL (7.4-10.4); MONOCYTES # (AUTO) 0.2 X 10^3 (0.0-1.0); MONOCYTES % (AUTO) 3 % (0-12); NEUTROPHILS # (AUTO) 3.9 X 10^3 (1.8-7.8); NEUTROPHILS % (AUTO) 62 % (42-75); PLATELET COUNT 261 10^3/uL (130-400); RED CELL DISTRIBUTION WIDTH 14.9 % (10.0-14.5); WHITE BLOOD COUNT 6.3 10^3/uL (4.3-11.0)
[2018-09-18 13:38] LABS: CALCIUM 10.2 MG/DL (8.5-10.1); CREATININE SERUM 1.03 MG/DL (0.60-1.30); POTASSIUM 3.4 MMOL/L (3.6-5.0)
[2018-09-25 13:04] LABS: BASOPHILS % (AUTO) 1 % (0-10); EOSINOPHILS # (AUTO) 0.1 10^3/uL (0.0-0.3); EOSINOPHILS % (AUTO) 4 % (0-10); HEMATOCRIT 40 % (35-52); HEMOGLOBIN 13.1 G/DL (11.5-16.0); LYMPHOCYTES # (AUTO) 1.5 X 10^3 (1.0-4.0); LYMPHOCYTES % (AUTO) 52 % (12-44); MEAN CORPUSCULAR HEMOGLOBIN 29 PG (25-34); MEAN CORPUSCULAR HGB CONC 33 G/DL (32-36); MEAN CORPUSCULAR VOLUME 88 FL (80-99); MONOCYTES # (AUTO) 0.3 X 10^3 (0.0-1.0); MONOCYTES % (AUTO) 10 % (0-12); NEUTROPHILS % (AUTO) 33 % (42-75); PLATELET COUNT 288 10^3/uL (130-400); RED CELL DISTRIBUTION WIDTH 15.4 % (10.0-14.5)
[2018-09-25 13:21] LABS: CALCIUM 9.7 MG/DL (8.5-10.1); CREATININE SERUM 1.02 MG/DL (0.60-1.30); POTASSIUM 3.1 MMOL/L (3.6-5.0)
[2018-10-02 10:44] LABS: BASOPHILS # (AUTO) 0.1 10^3/uL (0.0-0.1); BASOPHILS % (AUTO) 1 % (0-10); EOSINOPHILS # (AUTO) 0.1 10^3/uL (0.0-0.3); EOSINOPHILS % (AUTO) 2 % (0-10); HEMATOCRIT 40 % (35-52); HEMOGLOBIN 13.5 G/DL (11.5-16.0); LYMPHOCYTES % (AUTO) 29 % (12-44); MEAN CORPUSCULAR HEMOGLOBIN 30 PG (25-34); MEAN CORPUSCULAR HGB CONC 33 G/DL (32-36); MEAN CORPUSCULAR VOLUME 89 FL (80-99); MEAN PLATELET VOLUME 9.6 FL (7.4-10.4); MONOCYTES # (AUTO) 0.8 X 10^3 (0.0-1.0); MONOCYTES % (AUTO) 11 % (0-12); NEUTROPHILS % (AUTO) 57 % (42-75); PLATELET COUNT 346 10^3/uL (130-400)
[2018-10-02 10:58] LABS: BUN/CREATININE RATIO 14; CALCIUM 10.1 MG/DL (8.5-10.1); CARBON DIOXIDE 25 MMOL/L (21-32); CHLORIDE 100 MMOL/L (98-107); CREATININE SERUM 0.84 MG/DL (0.60-1.30); GFR ESTIMATED > 60; GLUCOSE 117 MG/DL (70-105); POTASSIUM 3.4 MMOL/L (3.6-5.0); SODIUM 138 MMOL/L (135-145)
[2018-10-09 12:57] LABS: BASOPHILS # (AUTO) 0.1 10^3/uL (0.0-0.1); BASOPHILS % (AUTO) 1 % (0-10); EOSINOPHILS # (AUTO) 0.1 10^3/uL (0.0-0.3); EOSINOPHILS % (AUTO) 1 % (0-10); HEMATOCRIT 41 % (35-52); HEMOGLOBIN 13.6 G/DL (11.5-16.0); LYMPHOCYTES % (AUTO) 18 % (12-44); MEAN CORPUSCULAR HEMOGLOBIN 29 PG (25-34); MEAN CORPUSCULAR HGB CONC 33 G/DL (32-36); MEAN CORPUSCULAR VOLUME 88 FL (80-99); MEAN PLATELET VOLUME 9.9 FL (7.4-10.4); MONOCYTES # (AUTO) 0.9 X 10^3 (0.0-1.0); MONOCYTES % (AUTO) 8 % (0-12); NEUTROPHILS # (AUTO) 8.2 X 10^3 (1.8-7.8); NEUTROPHILS % (AUTO) 72 % (42-75); PLATELET COUNT 319 10^3/uL (130-400); RED CELL DISTRIBUTION WIDTH 16.8 % (10.0-14.5); WHITE BLOOD COUNT 11.3 10^3/uL (4.3-11.0)
[2018-10-09 13:15] LABS: ALBUMIN 4.1 GM/DL (3.2-4.5); BILIRUBIN,TOTAL 0.3 MG/DL (0.1-1.0); CALCIUM 10.2 MG/DL (8.5-10.1); CREATININE SERUM 0.98 MG/DL (0.60-1.30); MAGNESIUM 1.9 MG/DL (1.8-2.4); TOTAL PROTEIN 7.8 GM/DL (6.4-8.2)
[2018-10-16 13:01] LABS: BASOPHILS % (AUTO) 1 % (0-10); EOSINOPHILS # (AUTO) 0.3 10^3/uL (0.0-0.3); EOSINOPHILS % (AUTO) 5 % (0-10); HEMATOCRIT 41 % (35-52); HEMOGLOBIN 13.7 G/DL (11.5-16.0); LYMPHOCYTES # (AUTO) 2.1 X 10^3 (1.0-4.0); LYMPHOCYTES % (AUTO) 30 % (12-44); MEAN CORPUSCULAR HEMOGLOBIN 30 PG (25-34); MEAN CORPUSCULAR HGB CONC 33 G/DL (32-36); MEAN CORPUSCULAR VOLUME 88 FL (80-99); MEAN PLATELET VOLUME 10.2 FL (7.4-10.4); MONOCYTES # (AUTO) 0.3 X 10^3 (0.0-1.0); MONOCYTES % (AUTO) 5 % (0-12); NEUTROPHILS # (AUTO) 4.1 X 10^3 (1.8-7.8); NEUTROPHILS % (AUTO) 60 % (42-75); PLATELET COUNT 225 10^3/uL (130-400); RED CELL DISTRIBUTION WIDTH 16.4 % (10.0-14.5); WHITE BLOOD COUNT 6.8 10^3/uL (4.3-11.0)
[2018-10-16 13:26] LABS: CREATININE SERUM 0.98 MG/DL (0.60-1.30); POTASSIUM 3.3 MMOL/L (3.6-5.0)
[2018-10-23 11:02] LABS: BASOPHILS % (AUTO) 1 % (0-10); EOSINOPHILS # (AUTO) 0.1 10^3/uL (0.0-0.3); EOSINOPHILS % (AUTO) 2 % (0-10); HEMATOCRIT 38 % (35-52); HEMOGLOBIN 12.6 G/DL (11.5-16.0); LYMPHOCYTES # (AUTO) 1.6 X 10^3 (1.0-4.0); LYMPHOCYTES % (AUTO) 48 % (12-44); MEAN CORPUSCULAR HEMOGLOBIN 29 PG (25-34); MEAN CORPUSCULAR HGB CONC 33 G/DL (32-36); MEAN CORPUSCULAR VOLUME 88 FL (80-99); MEAN PLATELET VOLUME 10.4 FL (7.4-10.4); MONOCYTES # (AUTO) 0.2 X 10^3 (0.0-1.0); MONOCYTES % (AUTO) 7 % (0-12); NEUTROPHILS # (AUTO) 1.4 X 10^3 (1.8-7.8); NEUTROPHILS % (AUTO) 42 % (42-75); PLATELET COUNT 283 10^3/uL (130-400); RED CELL DISTRIBUTION WIDTH 16.6 % (10.0-14.5); WHITE BLOOD COUNT 3.3 10^3/uL (4.3-11.0)
[2018-10-23 11:18] LABS: BUN/CREATININE RATIO 14; CALCIUM 9.3 MG/DL (8.5-10.1); CARBON DIOXIDE 31 MMOL/L (21-32); CHLORIDE 98 MMOL/L (98-107); CREATININE SERUM 0.83 MG/DL (0.60-1.30); GFR ESTIMATED > 60; GLUCOSE 96 MG/DL (70-105); POTASSIUM 2.7 MMOL/L (3.6-5.0); SODIUM 139 MMOL/L (135-145)
[~2018-10-30] VITALS: Ht 162.6 cm; Wt 59.9 kg
[~2018-10-30 13:36] MED LIST changes: +FAMOTIDINE 20MG/2ML IV (CANCER CTR) IV SCH; -HOLD METFORMIN - RECEIVED CONTRAST 20 ML VIAL IV SCH; -IOHEXOL 350 MG/ML 100 ML (OMNIPAQUE 350) VIAL IV ONE; -NS 100 ML (IVPB) BAG IV ONE; +NS IV 1000 ML (CANCER CTR) IV SCH; +PALONOSETRON HCL 0.25 MG, DEXAMETHASONE INJECTION 10 MG in NS (IVPB) CANCER CENTER 50 ML IV SCH; -ROSU10TA27 PO; +ROSU10TA28 PO; +diphenhydrAMINE 25 MG TAB (BENADRYL) CANCER CENTER PO SCH
[2018-10-30 14:30] LABS: BASOPHILS # (AUTO) 0.1 10^3/uL (0.0-0.1); BASOPHILS % (AUTO) 1 % (0-10); EOSINOPHILS # (AUTO) 0.1 10^3/uL (0.0-0.3); EOSINOPHILS % (AUTO) 2 % (0-10); HEMATOCRIT 41 % (35-52); HEMOGLOBIN 13.3 G/DL (11.5-16.0); LYMPHOCYTES % (AUTO) 32 % (12-44); MEAN CORPUSCULAR HEMOGLOBIN 29 PG (25-34); MEAN CORPUSCULAR HGB CONC 33 G/DL (32-36); MEAN CORPUSCULAR VOLUME 89 FL (80-99); MEAN PLATELET VOLUME 9.6 FL (7.4-10.4); MONOCYTES # (AUTO) 0.6 X 10^3 (0.0-1.0); MONOCYTES % (AUTO) 10 % (0-12); NEUTROPHILS # (AUTO) 3.4 X 10^3 (1.8-7.8); NEUTROPHILS % (AUTO) 55 % (42-75); PLATELET COUNT 398 10^3/uL (130-400); WHITE BLOOD COUNT 6.2 10^3/uL (4.3-11.0)
[2018-10-30 14:50] LABS: ALANINE AMINOTRANSFERASE 16 U/L (0-55); ALBUMIN 4.2 GM/DL (3.2-4.5); ALKALINE PHOSPHATASE 82 U/L (40-136); BILIRUBIN,TOTAL 0.4 MG/DL (0.1-1.0); BUN/CREATININE RATIO 15; CALCIUM 9.9 MG/DL (8.5-10.1); CARBON DIOXIDE 24 MMOL/L (21-32); CHLORIDE 104 MMOL/L (98-107); CREATININE SERUM 0.85 MG/DL (0.60-1.30); GFR ESTIMATED > 60; GLUCOSE 93 MG/DL (70-105); POTASSIUM 3.6 MMOL/L (3.6-5.0); SODIUM 139 MMOL/L (135-145); TOTAL PROTEIN 6.9 GM/DL (6.4-8.2)
== END 2018-11-01 | disposition home or self-care (01) ==
LOC: ONC 13:36
PROVIDERS: ATTEND Internal Medicine Hematology & Oncology
DX: Z51.11 Encounter for antineoplastic chemotherapy (principal); C34.2 Malignant neoplasm of middle lobe, bronchus or lung; L59.8 Other specified disorders of the skin and subcutaneous tissue related to radiation; J44.9 Chronic obstructive pulmonary disease, unspecified; F17.210 Nicotine dependence, cigarettes, uncomplicated; Z79.82 Long term (current) use of aspirin; Z79.899 Other long term (current) drug therapy; Z92.3 Personal history of irradiation
CPT/HCPCS: 36415; 80048; 80053; 83735; 85025; 86304; 96375; 96413; 96417; 99213

== ENCOUNTER → 2018-11-17 | Outpatient (CLI) | payer MEDICARE, MEDICAID ==
[~2018-11-17] MED LIST changes: -FAMOTIDINE 20MG/2ML IV (CANCER CTR) IV SCH; +HOLD METFORMIN - RECEIVED CONTRAST 20 ML VIAL IV SCH; +IOHEXOL 350 MG/ML 100 ML (OMNIPAQUE 350) VIAL IV ONE; +NS 100 ML (IVPB) BAG IV ONE; -NS IV 1000 ML (CANCER CTR) IV SCH; -PALONOSETRON HCL 0.25 MG, DEXAMETHASONE INJECTION 10 MG in NS (IVPB) CANCER CENTER 50 ML IV SCH; -diphenhydrAMINE 25 MG TAB (BENADRYL) CANCER CENTER PO SCH
--- NOTE | 2018-11-17 11:45 | Diagnostic Imaging Report ---
PROCEDURE: CT chest and abdomen with contrast. TECHNIQUE: Multiple contiguous axial images were obtained through the chest and abdomen after the administration of intravenous contrast. Auto Exposure Controls were utilized during the CT exam to meet ALARA standards for radiation dose reduction. INDICATION: Lung cancer, followup. COMPARISON: Comparison is made with prior CT chest from 08/01/2018. CT CHEST: No axillary lymphadenopathy is detected. No definite mediastinal or hilar lymphadenopathy is detected. No pericardial or pleural fluid is identified. Parenchymal evaluation does show some residual spiculation in the right middle lobe, similar to prior exam at approximately 9-10 mm. There is some adjacent groundglass opacities. Area of smaller nodularity anteriorly is less apparent on today's study. No new mass is identified. No new infiltrates are seen. IMPRESSION: Stable right middle lobe spiculated nodule when compared with examination from July 2018. No thoracic lymphadenopathy is detected. CT ABDOMEN: No discrete liver mass is seen. Gallbladder is unremarkable. The pancreas and spleen are unremarkable. Mild adrenal nodularity on the left is stable. Right kidney contains a 2.6 cm cyst. Aorta is nonaneurysmal. No central retroperitoneal or mesenteric lymphadenopathy is seen. The small and large bowel loops are normal in caliber. There is no ascites. IMPRESSION: No evidence of abdominal lymphadenopathy or metastatic disease. Dictated by: Dictated on workstation # [id number]
--- NOTE | 2018-11-17 14:38 | Diagnostic Imaging Report ---
INDICATION: Lung carcinoma. TECHNIQUE: Patient was administered 21.8 mCi of technetium-99m MDP intravenously and whole-body imaging was performed after three-hour delay. COMPARISON: No prior bone scans are available for comparison. FINDINGS: There is normal uptake of activity by the axial and appendicular skeleton. There is uptake by the kidneys with excretion to the urinary bladder. No abnormal foci of trace accumulation is seen to suggest osseous metastatic disease. IMPRESSION: No scintigraphic evidence of osseous metastatic disease. Dictated by: Dictated on workstation # [id number]
== END ==
LOC: CARD 10:29
PROVIDERS: ATTEND Nurse Practitioner Adult Health
DX: Z01.89 Encounter for other specified special examinations (principal); C34.2 Malignant neoplasm of middle lobe, bronchus or lung
CPT/HCPCS: 71260; 74160; 78306

== ENCOUNTER 2019-02-15 09:52 | Outpatient (RCR) | payer MEDICARE, MEDICAID ==
[2018-11-20 10:34] LABS: BASOPHILS % (AUTO) 0 % (0-10); EOSINOPHILS # (AUTO) 0.2 10^3/uL (0.0-0.3); EOSINOPHILS % (AUTO) 2 % (0-10); HEMATOCRIT 43 % (35-52); HEMOGLOBIN 13.9 G/DL (11.5-16.0); LYMPHOCYTES # (AUTO) 1.6 X 10^3 (1.0-4.0); LYMPHOCYTES % (AUTO) 17 % (12-44); MEAN CORPUSCULAR HEMOGLOBIN 29 PG (25-34); MEAN CORPUSCULAR HGB CONC 32 G/DL (32-36); MEAN CORPUSCULAR VOLUME 90 FL (80-99); MEAN PLATELET VOLUME 10.2 FL (7.4-10.4); MONOCYTES # (AUTO) 0.7 X 10^3 (0.0-1.0); MONOCYTES % (AUTO) 7 % (0-12); NEUTROPHILS # (AUTO) 7.2 X 10^3 (1.8-7.8); NEUTROPHILS % (AUTO) 74 % (42-75); PLATELET COUNT 266 10^3/uL (130-400); RED CELL DISTRIBUTION WIDTH 17.8 % (10.0-14.5); WHITE BLOOD COUNT 9.8 10^3/uL (4.3-11.0)
[2018-11-20 11:01] LABS: ALANINE AMINOTRANSFERASE 10 U/L (0-55); ALBUMIN 4.2 GM/DL (3.2-4.5); ALKALINE PHOSPHATASE 91 U/L (40-136); BILIRUBIN,TOTAL 0.5 MG/DL (0.1-1.0); BUN/CREATININE RATIO 20; CALCIUM 10.1 MG/DL (8.5-10.1); CARBON DIOXIDE 28 MMOL/L (21-32); CHLORIDE 101 MMOL/L (98-107); CREATININE SERUM 0.89 MG/DL (0.60-1.30); GFR ESTIMATED > 60; GLUCOSE 130 MG/DL (70-105); MAGNESIUM 1.8 MG/DL (1.6-2.4); POTASSIUM 3.6 MMOL/L (3.6-5.0); SODIUM 138 MMOL/L (135-145); TOTAL PROTEIN 6.8 GM/DL (6.4-8.2)
[~2019-02-15 09:52] MED LIST changes: -BARIUM SUSPENSION 2.1% (VANILLA SILQ) 450 ML PO ONE; -CATHETER FLUSH 10 ML SYR IV PRN; -HOLD METFORMIN - RECEIVED CONTRAST 20 ML VIAL IV SCH; -IOHEXOL 350 MG/ML 100 ML (OMNIPAQUE 350) VIAL IV ONE; -NS 100 ML (IVPB) BAG IV ONE
[2019-02-15 10:19] LABS: BASOPHILS % (AUTO) 1 % (0-10); EOSINOPHILS # (AUTO) 0.2 10^3/uL (0.0-0.3); EOSINOPHILS % (AUTO) 2 % (0-10); HEMATOCRIT 46 % (35-52); LYMPHOCYTES # (AUTO) 1.8 X 10^3 (1.0-4.0); LYMPHOCYTES % (AUTO) 22 % (12-44); MEAN CORPUSCULAR HEMOGLOBIN 29 PG (25-34); MEAN CORPUSCULAR HGB CONC 33 G/DL (32-36); MEAN CORPUSCULAR VOLUME 89 FL (80-99); MEAN PLATELET VOLUME 10.1 FL (7.4-10.4); MONOCYTES # (AUTO) 0.6 X 10^3 (0.0-1.0); MONOCYTES % (AUTO) 7 % (0-12); NEUTROPHILS # (AUTO) 5.4 X 10^3 (1.8-7.8); NEUTROPHILS % (AUTO) 68 % (42-75); PLATELET COUNT 252 10^3/uL (130-400); RED CELL DISTRIBUTION WIDTH 14.9 % (10.0-14.5)
[2019-02-15 10:39] LABS: ALBUMIN 4.3 GM/DL (3.2-4.5); BILIRUBIN,TOTAL 0.4 MG/DL (0.1-1.0); CALCIUM 10.3 MG/DL (8.5-10.1); CREATININE SERUM 0.94 MG/DL (0.60-1.30); POTASSIUM 3.8 MMOL/L (3.6-5.0); TOTAL PROTEIN 7.1 GM/DL (6.4-8.2)
== END 2019-02-18 | disposition home or self-care (01) ==
LOC: ONC 09:52
PROVIDERS: ATTEND Internal Medicine Hematology & Oncology
DX: C34.2 Malignant neoplasm of middle lobe, bronchus or lung (principal); L59.8 Other specified disorders of the skin and subcutaneous tissue related to radiation; J44.9 Chronic obstructive pulmonary disease, unspecified; F17.210 Nicotine dependence, cigarettes, uncomplicated; Z79.82 Long term (current) use of aspirin; Z79.899 Other long term (current) drug therapy; Z92.21 Personal history of antineoplastic chemotherapy; Z92.3 Personal history of irradiation
CPT/HCPCS: 36415; 80053; 83735; 85025; 99213

== ENCOUNTER → 2019-02-15 | Outpatient (CLI) | payer MEDICARE, MEDICAID ==
[~2019-02-15] MED LIST changes: +BARIUM SUSPENSION 2.1% (VANILLA SILQ) 450 ML PO ONE; +CATHETER FLUSH 10 ML SYR IV PRN
--- NOTE | 2019-02-15 13:43 | Diagnostic Imaging Report ---
PROCEDURE: CT chest and abdomen with contrast. TECHNIQUE: Multiple contiguous axial images were obtained through the chest and abdomen after the administration of intravenous contrast. Auto Exposure Controls were utilized during the CT exam to meet ALARA standards for radiation dose reduction. INDICATION: Lung cancer The previous CT chest and abdomen exam of 11/17/2018 noted a spiculated 9-10 mm nodule in the right middle lobe with associated groundglass densities. That finding is again evident on this study and does seem slightly smaller measuring approximately 7.8 mm (image 34 of 92). In addition, in the interval since the prior study another nodular density has developed immediately lateral to the finding of the previous exam. This nodular density measures 7.7 mm. The associated groundglass density seen in the previous study is again evident and not significantly changed. The lungs are otherwise generally clear. No new parenchymal lung mass has developed. There is no sign of failure, pneumonia or of pleural effusion to indicate an acute abnormality either. The heart size is stable when compared to the prior exam. Aorta is not abnormally dilated and there is no sign of a dissection. There is no defect within the pulmonary arteries to indicate a pulmonary embolus. There is no mediastinal or hilar adenopathy. The thyroid gland is generally unremarkable. The images through the abdomen revealed that the liver is fairly homogeneous and not enlarged. There is a small 1.6 x 1.9 cm area of diminished density just lateral to the falciform ligament. This finding was also present on the prior study and has not changed. The spleen, pancreas, adrenals, kidneys, gallbladder aorta and inferior vena cava are unremarkable for an acute abnormality. The cyst along the lateral aspect of the right kidney seen previously is again evident and no different. The stomach is filled with oral contrast and consequently difficult to assess. There is no pelvic mass or free fluid collection evident. There is diverticulosis of the descending colon but there is no evidence for acute diverticulitis. The bone windows show no evidence of a fracture or for a destructive lesion. The dextroscoliosis of the thoracic spine seen previously is again evident and no different. IMPRESSION: 1. The nodule in the right middle lobe seen on the previous exam appears stable. However in the interval since the prior study a new similar sized nodule has developed in this region. This finding is worrisome for neoplastic disease. 2. The overall appearance of the chest is otherwise stable. There is no other evidence for neoplastic disease and there is no sign of an acute abnormality. 3. The abdomen is stable when compared to the prior exam. There is no sign of neoplastic disease. There is no acute abnormality identified either. Dictated by: Dictated on workstation # [id number]
--- NOTE | 2019-02-15 17:47 | Diagnostic Imaging Report ---
EXAMINATION: Whole body bone scan. INDICATION: Lung cancer. FINDINGS: This study was performed following administration of 25.5 mCi of technetium-99m MDP. Anterior and posterior whole-body images were obtained as well as spot films of the calvarium and thorax in the lateral projection. The previous whole body bone scan of 11/17/2018 failed to show any evidence for metastatic disease. On this study, there is generalized distribution of the radiotracer throughout the osseous structures. There is no focal area of increased or decreased activity to indicate metastatic disease. There is excretion of the radiotracer by both kidneys. IMPRESSION: The whole body bone scan appears stable when compared to the prior exam. There is still no evidence for metastatic disease or for an acute bony abnormality. Dictated by: Dictated on workstation # [id number]
== END ==
LOC: CARD 10:23
PROVIDERS: ATTEND Internal Medicine Hematology & Oncology
DX: C34.2 Malignant neoplasm of middle lobe, bronchus or lung (principal)
CPT/HCPCS: 71260; 74160; 78306

== ENCOUNTER → 2019-04-24 | Outpatient (CLI) | payer MEDICARE, MEDICAID ==
--- NOTE | 2019-04-26 13:06 | Diagnostic Imaging Report ---
EXAMINATION: PET/CT INDICATION: Lung nodule TECHNIQUE: PET/CT imaging was obtained from the base of the skull through the pelvis after the administration of 13.80 mCi of F-[address] imaging was utilized for localization and attenuation correction purposes. The low energy CT utilized for attenuation correction is not considered to be of high enough spatial resolution to allow in and of itself a separate anatomical analysis. Patient's height is 5' 4" weight 137, her blood glucose level was 101. The PET/CT exam performed on 03/28/2018 noted a hypermetabolic mass in the lateral aspect of the right middle lobe. This had diminished in size somewhat since the prior exam of 07/26/2017. However this mass did seem larger than noted on the conventional CT chest exam of 01/28/2018. There was also a new satellite hypermetabolic nodule slightly inferior and lateral to this lesion. On this study the 12.6 mm hypermetabolic mass in the right middle lobe seen previously has diminished in size and now measures 8.4 mm. This nodule is also less intense than noted on the prior exam. The maximum SUV is 3.6 as opposed to 8.0. The 5.6 mm satellite nodule seen previously cannot be identified with certainty. There is virtually no hypermetabolic activity in this region. In the interval since the previous exam multiple small foci of increased activity have developed in the mid thoracic spine. This includes small areas of slight increased activity along the anterior aspect of the T10 vertebral body on the left within the left costovertebral junction at T9. There is also increased activity along the anterior aspect of T8 and the left costovertebral junction at this level and there are similar findings at T7 and T6. There is also increased activity in the left costovertebral junction of T5. Small symmetrical areas of increased activity are also seen along the posterior aspect of the lower cervical spine. These findings have SUV values ranging from 2.3-5.4 the distribution of these areas of abnormal uptake suggest that these findings may be posttraumatic in nature as opposed to neoplastic disease. Clinical follow-up is recommended. There is a prominent area of increased hypermetabolic activity along the right side of the heart. This appears to be related to the distal superior vena cava as opposed to a neoplastic mass. There is no other hyper metabolic activity seen to suggest the presence of malignancy. Physiologic activity is again seen in the brain, kidneys, bowel and bladder. The CT images failed to show any sign of an acute abnormality. IMPRESSION: 1. The hyper metabolic nodule in the right middle lobe seen previously has decreased in size and intensity. The satellite nodule seen previously in the same region is no longer evident. 2. The new areas of hypermetabolic activity involving the lower thoracic and cervical spine may be posttraumatic in nature as opposed to metastatic disease. Clinical follow-up is recommended. 3. There is no other hyper metabolic activity to suggest the presence of malignancy. Dictated on workstation # [id number]
== END ==
LOC: RAD 08:34
PROVIDERS: ATTEND Internal Medicine Hematology & Oncology
DX: C34.2 Malignant neoplasm of middle lobe, bronchus or lung (principal); R91.8 Other nonspecific abnormal finding of lung field

== ENCOUNTER 2019-04-30 10:21 | Outpatient (RCR) | payer MEDICARE, MEDICAID ==
[2019-04-30 10:41] LABS: BASOPHILS % (AUTO) 0 % (0-10); EOSINOPHILS # (AUTO) 0.1 10^3/uL (0.0-0.3); EOSINOPHILS % (AUTO) 1 % (0-10); HEMATOCRIT 46 % (35-52); HEMOGLOBIN 15.1 G/DL (11.5-16.0); LYMPHOCYTES # (AUTO) 1.8 X 10^3 (1.0-4.0); LYMPHOCYTES % (AUTO) 21 % (12-44); MEAN CORPUSCULAR HEMOGLOBIN 29 PG (25-34); MEAN CORPUSCULAR HGB CONC 33 G/DL (32-36); MEAN CORPUSCULAR VOLUME 87 FL (80-99); MEAN PLATELET VOLUME 10.1 FL (7.4-10.4); MONOCYTES # (AUTO) 0.7 X 10^3 (0.0-1.0); MONOCYTES % (AUTO) 8 % (0-12); NEUTROPHILS # (AUTO) 6.1 X 10^3 (1.8-7.8); NEUTROPHILS % (AUTO) 70 % (42-75); PLATELET COUNT 268 10^3/uL (130-400); RED CELL DISTRIBUTION WIDTH 15.7 % (10.0-14.5); WHITE BLOOD COUNT 8.7 10^3/uL (4.3-11.0)
[2019-04-30 11:01] LABS: ALANINE AMINOTRANSFERASE 11 U/L (0-55); ALBUMIN 4.3 GM/DL (3.2-4.5); ALKALINE PHOSPHATASE 101 U/L (40-136); BILIRUBIN,TOTAL 0.5 MG/DL (0.1-1.0); BUN/CREATININE RATIO 18; CALCIUM 10.1 MG/DL (8.5-10.1); CARBON DIOXIDE 29 MMOL/L (21-32); CHLORIDE 99 MMOL/L (98-107); CREATININE SERUM 0.88 MG/DL (0.60-1.30); GFR ESTIMATED > 60; GLUCOSE 116 MG/DL (70-105); POTASSIUM 3.3 MMOL/L (3.6-5.0); SODIUM 139 MMOL/L (135-145)
== END 2019-05-20 | disposition home or self-care (01) ==
LOC: ONC 10:21
PROVIDERS: ATTEND Internal Medicine Hematology & Oncology
DX: C34.2 Malignant neoplasm of middle lobe, bronchus or lung (principal); L59.8 Other specified disorders of the skin and subcutaneous tissue related to radiation; J44.9 Chronic obstructive pulmonary disease, unspecified; F17.210 Nicotine dependence, cigarettes, uncomplicated; Z79.82 Long term (current) use of aspirin; Z79.899 Other long term (current) drug therapy; Z92.21 Personal history of antineoplastic chemotherapy; Z92.3 Personal history of irradiation; Z98.890 Other specified postprocedural states
CPT/HCPCS: 80053; 85025; 99213

== ENCOUNTER → 2019-07-16 | Outpatient (CLI) | payer MEDICARE, MEDICAID ==
[~2019-07-16] MED LIST changes: +CATHETER FLUSH 10 ML SYR IV PRN
--- NOTE | 2019-07-16 13:22 | Diagnostic Imaging Report ---
PROCEDURE: CT chest with contrast, CT abdomen with and without contrast. TECHNIQUE: Precontrast acquisitions were acquired through the abdomen. Multiple contiguous axial images were obtained through the chest and abdomen after administration of intravenous contrast. Auto Exposure Controls were utilized during the CT exam to meet ALARA standards for radiation dose reduction. INDICATION: Lung cancer. COMPARISON: CT chest and abdomen from 02/15/2019. FINDINGS: CT CHEST: No endoluminal nodule within the trachea. At the site of the treated right middle lobe lung cancer, there is an enlarging solid nodule now measuring 1.5 x 1.6 cm with polylobulated margins. This is indicative of local recurrence. There is surrounding scar. Soft tissue thickening along the major fissure has mildly increased and could represent direct tumor extension. No pulmonary nodules within the contralateral lung have developed. No right upper lobe pulmonary nodules. No pleural effusion or pneumothorax. The thyroid is normal. No supraclavicular or axillary lymphadenopathy. No mediastinal, hilar, or juxtaphrenic lymphadenopathy. The heart is normal in size without pericardial effusion. No pulmonary emboli centrally. Normal caliber thoracic aorta. No lytic or blastic skeletal lesions that would suggest metastatic disease. CT ABDOMEN: No free intraperitoneal air or fluid. No focal hepatic lesion that would indicate metastatic disease. The gallbladder and bile ducts are normal. The spleen and pancreas are also normal. Slight nodular thickening of the left adrenal gland is stable and likely due to benign hypertrophy. The right adrenal gland is normal. No solid renal mass or obstructive uropathy. The simple cyst in the lower pole of the right kidney is unchanged and requires no dedicated followup imaging. No dilated loops of bowel to indicate bowel obstruction. No abdominal lymphadenopathy. Normal caliber abdominal aorta has moderate atherosclerotic plaquing present. IMPRESSION: 1. Local recurrence of primary lung cancer within the right middle lobe is characterized by an enlarging polylobulated pulmonary nodule at the site of prior therapy. 2. No intrathoracic metastases. 3. No features of metastatic disease in the abdomen. Dictated by: Dictated on workstation # [id number]
--- NOTE | 2019-07-16 14:09 | Diagnostic Imaging Report ---
INDICATION: Lung cancer. Patient was administered 25.7 mCi technetium 99m MDP intravenously and whole-body imaging was performed after 3 hour delay. Correlation is made with prior whole body bone scan from 02/15/2019. Normal uptake of activity by the axial and appendicular skeleton is noted. There is uptake by both kidneys with excretion into the urinary bladder. No abnormal foci of tracer circulation is seen to suggest osseous metastatic disease. IMPRESSION: No scintigraphic evidence of osseous metastatic disease. Dictated by: Dictated on workstation # [id number]
== END ==
LOC: CARD 10:00
PROVIDERS: ATTEND Internal Medicine Hematology & Oncology
DX: C34.2 Malignant neoplasm of middle lobe, bronchus or lung (principal)
CPT/HCPCS: 71260; 74170; 78306

== ENCOUNTER → 2019-07-25 | Outpatient (CLI) | payer MEDICARE, MEDICAID ==
[~2019-07-25] MED LIST changes: -CATHETER FLUSH 10 ML SYR IV PRN; +HOLD METFORMIN - RECEIVED CONTRAST 20 ML VIAL IV SCH; +IOHEXOL 350 MG/ML 100 ML (OMNIPAQUE 350) VIAL IV ONE; +NS 100 ML (IVPB) BAG IV ONE
--- NOTE | 2019-07-25 09:21 | Diagnostic Imaging Report ---
PROCEDURE: CT head with and without contrast. TECHNIQUE: Multiple contiguous axial images were obtained through the brain before and after the administration of intravenous contrast. Auto Exposure Controls were utilized during the CT exam to meet ALARA standards for radiation dose reduction. INDICATION: Dizziness and lung cancer. Correlation is made with prior head CT from 05/31/2018. Ventricular size and sulcal pattern are stable. No midline shift or hemorrhage is detected. No enhancing lesion on postcontrast imaging is identified. Cisterns are patent. Visualized paranasal sinuses are clear. IMPRESSION: Stable pre and postcontrast CT of the brain when compared with exam from 05/31/2018. No acute features seen. There are no findings to suggest intracranial metastatic disease. Dictated by: Dictated on workstation # [id number]
== END ==
LOC: RAD 07:45
PROVIDERS: ATTEND Internal Medicine Hematology & Oncology
DX: R42 Dizziness and giddiness (principal); C34.2 Malignant neoplasm of middle lobe, bronchus or lung
CPT/HCPCS: 70470

== ENCOUNTER 2019-08-29 10:41 | Outpatient (RCR) | payer MEDICARE, MEDICAID ==
[2019-07-16 09:54] LABS: BASOPHILS # (AUTO) 0.1 10^3/uL (0.0-0.1); BASOPHILS % (AUTO) 1 % (0-10); EOSINOPHILS # (AUTO) 0.2 10^3/uL (0.0-0.3); EOSINOPHILS % (AUTO) 2 % (0-10); HEMATOCRIT 49 % (35-52); HEMOGLOBIN 16.1 G/DL (11.5-16.0); LYMPHOCYTES # (AUTO) 1.9 X 10^3 (1.0-4.0); LYMPHOCYTES % (AUTO) 20 % (12-44); MEAN CORPUSCULAR HEMOGLOBIN 29 PG (25-34); MEAN CORPUSCULAR HGB CONC 33 G/DL (32-36); MEAN CORPUSCULAR VOLUME 88 FL (80-99); MEAN PLATELET VOLUME 10.1 FL (7.4-10.4); MONOCYTES # (AUTO) 0.6 X 10^3 (0.0-1.0); MONOCYTES % (AUTO) 7 % (0-12); NEUTROPHILS # (AUTO) 6.7 X 10^3 (1.8-7.8); NEUTROPHILS % (AUTO) 71 % (42-75); PLATELET COUNT 297 10^3/uL (130-400); RED CELL DISTRIBUTION WIDTH 15.3 % (10.0-14.5); WHITE BLOOD COUNT 9.5 10^3/uL (4.3-11.0)
[2019-07-16 10:13] LABS: ALANINE AMINOTRANSFERASE 13 U/L (0-55); ALBUMIN 4.3 GM/DL (3.2-4.5); ALKALINE PHOSPHATASE 88 U/L (40-136); BILIRUBIN,TOTAL 0.5 MG/DL (0.1-1.0); BUN/CREATININE RATIO 21; CALCIUM 10.1 MG/DL (8.5-10.1); CARBON DIOXIDE 28 MMOL/L (21-32); CHLORIDE 100 MMOL/L (98-107); CREATININE SERUM 0.87 MG/DL (0.60-1.30); GFR ESTIMATED > 60; GLUCOSE 121 MG/DL (70-105); POTASSIUM 3.5 MMOL/L (3.6-5.0); SODIUM 141 MMOL/L (135-145); TOTAL PROTEIN 7.3 GM/DL (6.4-8.2)
[~2019-08-29 10:41] MED LIST changes: -HOLD METFORMIN - RECEIVED CONTRAST 20 ML VIAL IV SCH; -IOHEXOL 350 MG/ML 100 ML (OMNIPAQUE 350) VIAL IV ONE; -NS 100 ML (IVPB) BAG IV ONE
[2019-08-29 11:02] LABS: BASOPHILS % (AUTO) 0 % (0-10); EOSINOPHILS # (AUTO) 0.2 10^3/uL (0.0-0.3); EOSINOPHILS % (AUTO) 2 % (0-10); HEMATOCRIT 45 % (35-52); LYMPHOCYTES # (AUTO) 1.9 X 10^3 (1.0-4.0); LYMPHOCYTES % (AUTO) 21 % (12-44); MEAN CORPUSCULAR HEMOGLOBIN 29 PG (25-34); MEAN CORPUSCULAR HGB CONC 34 G/DL (32-36); MEAN CORPUSCULAR VOLUME 87 FL (80-99); MEAN PLATELET VOLUME 10.1 FL (7.4-10.4); MONOCYTES # (AUTO) 0.6 X 10^3 (0.0-1.0); MONOCYTES % (AUTO) 7 % (0-12); NEUTROPHILS # (AUTO) 6.4 X 10^3 (1.8-7.8); NEUTROPHILS % (AUTO) 70 % (42-75); PLATELET COUNT 262 10^3/uL (130-400); RED CELL DISTRIBUTION WIDTH 14.8 % (10.0-14.5); WHITE BLOOD COUNT 9.1 10^3/uL (4.3-11.0)
[2019-08-29 11:26] LABS: ALBUMIN 4.1 GM/DL (3.2-4.5); BILIRUBIN,TOTAL 0.5 MG/DL (0.1-1.0); CALCIUM 9.8 MG/DL (8.5-10.1); CREATININE SERUM 0.91 MG/DL (0.60-1.30); POTASSIUM 3.3 MMOL/L (3.6-5.0); TOTAL PROTEIN 6.9 GM/DL (6.4-8.2)
== END 2019-10-14 | disposition home or self-care (01) ==
LOC: ONC 10:41
PROVIDERS: ATTEND Internal Medicine Hematology & Oncology
DX: C34.2 Malignant neoplasm of middle lobe, bronchus or lung (principal)
CPT/HCPCS: 80053; 85025; 99213

== ENCOUNTER → 2019-10-18 | Outpatient (CLI) | payer MEDICARE, MEDICAID ==
[~2019-10-18] MED LIST changes: +CATHETER FLUSH 10 ML SYR IV PRN; +HOLD METFORMIN - RECEIVED CONTRAST 20 ML VIAL IV SCH; +IOHEXOL 350 MG/ML 100 ML (OMNIPAQUE 350) VIAL IV ONE; +NS 100 ML (IVPB) BAG IV ONE
[2019-10-18] MEDS: CATHETER FLUSH 10 ML SYR IV PRN ×2 (11:52→12:29)
--- NOTE | 2019-10-18 13:43 | Diagnostic Imaging Report ---
PROCEDURE: CT chest with contrast, CT abdomen with and without contrast. TECHNIQUE: Precontrast acquisitions were acquired through the abdomen. Multiple contiguous axial images were obtained through the chest and abdomen after administration of intravenous contrast. Auto Exposure Controls were utilized during the CT exam to meet ALARA standards for radiation dose reduction. INDICATION: Lung cancer, follow-up. Correlation is made with prior CT from 07/16/2019. CT CHEST: FINDINGS: No axillary, hilar, or mediastinal lymphadenopathy is detected. No pericardial or pleural fluid is identified. Previously noted polylobulated mass in the right middle lobe demonstrates increase in size, now measuring 2.0 cm AP x 2.5 cm transverse compared with 1.6 cm x 1.6 cm on prior. No other parenchymal abnormalities are seen. Contralateral left lung is unremarkable. IMPRESSION: Enlarging right middle lobe polylobulated nodule when compared with study from 07/16/2019. This again is most consistent with recurrent lung neoplasm. No thoracic lymphadenopathy is detected. CT ABDOMEN: FINDINGS: No liver mass is detected. The gallbladder is unremarkable. There is no biliary ductal dilatation. Pancreas and spleen are unremarkable. No adrenal mass is detected. Kidneys contain cortical low densities most suggestive of cysts. Aorta and iliac vessels are heavily calcified but nonaneurysmal. No central retroperitoneal or mesenteric lymphadenopathy is detected. The bowel loops are normal caliber. There is no ascites. Bony structures are nonacute. IMPRESSION: Stable CT abdomen since exam from 07/16/2019. There is no evidence of abdominal lymphadenopathy or metastatic disease. Dictated by: Dictated on workstation # [id number]
--- NOTE | 2019-10-18 17:41 | Diagnostic Imaging Report ---
INDICATION: Lung cancer. Patient was administered 26.7 mCi technetium 99m MDP intravenously and whole-body imaging was performed after 3-hour delay. Correlation is made with prior bone scan from 07/16/2019. Uptake of activity by the axial and appendicular skeleton is noted. There is uptake by the kidneys with excretion into urinary bladder. There is a small focus of uptake involving a lower right anterior rib. No corresponding abnormality on the CT study performed earlier today is identified. In addition, there is abnormal uptake involving the right frontal calvarium. IMPRESSION: Development of a small focus of uptake involving the lower right anterior rib as well as uptake involving the right frontal calvarium. Metastatic lesions cannot be entirely excluded. Dictated by: Dictated on workstation # [id number]
== END ==
LOC: CARD 11:32
PROVIDERS: ATTEND Internal Medicine Hematology & Oncology
DX: C34.90 Malignant neoplasm of unspecified part of unspecified bronchus or lung (principal)
CPT/HCPCS: 71260; 74170; 78306; A9503

== ENCOUNTER 2019-11-05 05:44 | Outpatient (CLI) | payer MEDICARE, MEDICAID ==
[~2019-11-05] VITALS: Ht 167.6 cm; Wt 59.5 kg
[~2019-11-05 05:44] MED LIST changes: -CATHETER FLUSH 10 ML SYR IV PRN; -HOLD METFORMIN - RECEIVED CONTRAST 20 ML VIAL IV SCH; -IOHEXOL 350 MG/ML 100 ML (OMNIPAQUE 350) VIAL IV ONE; -NS 100 ML (IVPB) BAG IV ONE
[2019-11-05] MEDS ORDERED: ALPR0.254 PO (09:46)
[2019-11-05] MEDS ORDERED: INDA1.25 PO (09:46)
== END 2019-11-05 09:59 | disposition home or self-care (01) ==
LOC: PREOP 05:44
PROVIDERS: ATTEND Surgery
DX: Z01.818 Encounter for other preprocedural examination (principal)

== ENCOUNTER 2019-11-08 09:03 | Day surgery (SDC) | payer MEDICARE, MEDICAID ==
[~2019-11-08] VITALS: Ht 167.6 cm; Wt 59.5 kg
[2019-11-08] VITALS (7 sets, daily range): BP systolic 114–139; BP diastolic 60–70
[~2019-11-08 09:03] MED LIST changes: +ALPR0.254 PO
[2019-11-08] MEDS ORDERED: HEParin (CENTRAL IV FLUSH) 500 UNIT/5 ML SYR ONE (09:32)
[2019-11-08] MEDS ORDERED: BUP/EPI 0.5% 1:200,000 (SENSORCAINE) 30 ML VIAL ONE (09:32)
[2019-11-08] MEDS ORDERED: 0.9% SODIUM CHLORIDE PF INJ 20 ML VIAL ONE (09:32)
[2019-11-08] MEDS ORDERED: LACTATED RINGERS 1,000 ML IV PRN (09:40)
[2019-11-08] MEDS ORDERED: ceFAZolin INJECTION 1,000 MG in WATER (STERILE) FOR INJECTION 10 ML IV ONE (09:45)
--- NOTE | 2019-11-08 09:45 | Progress Note-Pre Operative ---
Pre-Operative Progress Note H&P Reviewed The H&P was reviewed, patient examined and no changes noted. Date Seen by Provider: Nov 08, 2019 Time Seen by Provider: 09:44 Date H&P Reviewed: Nov 08, 2019 Time H&P Reviewed: 09:40 Pre-Operative Diagnosis: lung cancer KATYA LOWE Nov 08, 2019 09:45
[2019-11-08] MEDS ORDERED: ACHD5005 PO (09:55)
--- NOTE | 2019-11-08 09:56 | Discharge Inst-Surgical ---
D/C Lap Instructions-KIDO Reconcile Patient Problems Problems Reviewed?: Yes New, Converted, or Re-Newed RX: RX on Chart Follow Up Appt as needed Activity as tolerated No driving for 24 hours No driving while on pain medications Incentive Spirometry use every 2 hours while awake Regular Diet Symptoms to Report: Fever over 101 degree F, Nausea/Vomiting Infection Signs and Symptoms to report: Increased redness, Foul odor of wound, Increased drainage Bathing instructions: May shower Operative Area Clean/Dry; Keep incision clean/dry If any problems/questions: Contact your physician or go to Emergency Room CARISA PANTOJA APRN Nov 08, 2019 09:56
[2019-11-08] MEDS ORDERED: ONDANSETRON 4 MG/2 ML (SDV) Z0FRAN IVP PRN ×2 (10:00→12:00)
[2019-11-08] MEDS ORDERED: ACETAMINOPHEN 325 MG TABLET PO PRN (10:00)
[2019-11-08] MEDS ORDERED: HYDROcodone/APAP 5 MG/325 MG (LORTAB) TAB PO ONE (10:00)
[2019-11-08] MEDS ORDERED: morphine INJ 10 MG/ML 1ML (SYR OR VIAL) IVP PRN (10:00)
--- NOTE | 2019-11-08 11:47 | Progress Note-Post Operative ---
Post-Operative Progess Note Surgeon (s)/[facility] (s) Surgeon NATIVIDAD GERBER MD [facility]: earnestine hernandez DELIVERY HELPER Pre-Operative Diagnosis lung cancer Post-Operative Diagnosis same Procedure & Operative Findings Date of Procedure 11/08/19 Procedure Performed/Findings left subclavian groshong implantable catheter under flouroscopy. Anesthesia Type mac with local Estimated Blood Loss Estimated blood loss (mL): minimal Specimens/Packing Specimens Removed none NATIVIDAD GERBER MD Nov 08, 2019 11:47
[2019-11-08] MEDS ORDERED: PROPOFOL INJECTION 50 ML IV ONE (11:49)
[2019-11-08] MEDS ORDERED: morphine INJ 10 MG/ML 1ML (SYR OR VIAL) IVP ONE (12:00)
[2019-11-08] MEDS ORDERED: fentaNYL INJECTION 100 MCG/2 ML AMP IVP ONE (12:00)
[2019-11-08] MEDS ORDERED: MEPERIDINE (DEMEROL) INJ 50 MG/ML IVP ONE (12:00)
--- NOTE | 2019-11-08 12:32 | Diagnostic Imaging Report ---
EXAMINATION: Fluoroscopy at 1140h. INDICATION: Groshong catheter placement Fluoroscopic assistance was provided for Dr. Griffith during his Groshong catheter placement procedure. 27.2 seconds of fluoroscopy time was utilized. A single spot film of the thorax was obtained. There is a Groshong catheter in place on the left with tip of the catheter overlying the midportion of the superior vena cava. IMPRESSION: Fluoroscopic assistance was provided for Dr. Griffith. Dictated by: Dictated on workstation # [id number]
--- NOTE | 2019-11-08 12:49 | Anesthesia-General Post-Op ---
MAC Patient Condition Mental Status/LOC: Same as Preop Cardiovascular: Satisfactory Nausea/Vomiting: Absent Respiratory: Satisfactory Pain: Controlled Complications: Absent Post Op Complications Complications None Follow Up Care/Instructions Patient Instructions None needed. Anesthesiology Discharge Order Discharge Order Patient is doing well, no complaints, stable vital signs, no apparent adverse anesthesia problems. No complications reported per nursing. ADITHYA VITALE CRNA Nov 08, 2019 12:49
--- NOTE | 2019-11-08 13:24 | Diagnostic Imaging Report ---
INDICATION: Groshong tube placement. COMPARISON: 06/27/2018. FINDINGS: There is Port-A-Cath on the left. Tip extends into the superior vena cava just above the cavoatrial junction. There is a pneumothorax now present estimated 30-40% on the left. Right lung shows infiltrate developing in the lower lobe laterally. No pneumothorax on the right. No pleural effusion. IMPRESSION: 1. Left central line placement with pneumothorax now present. 2. Developing consolidated infiltrate in right lower lobe. CRITICAL FINDING Report given to nursing staff at 1:24 PM 11/08/2019/cb Dictated by: Dictated on workstation # [id number]
--- NOTE | 2019-11-08 14:30 | OPERATIVE REPORT ---
DATE OF SERVICE: 11/08/2019 ATTENDING PRIMARY CARE: Dr. Mary Salcido. PREOPERATIVE DIAGNOSIS: Right recurrent lung cancer. POSTOPERATIVE DIAGNOSIS: Right recurrent lung cancer. PROCEDURE PERFORMED: Placement of left subclavian Groshong implantable catheter under fluoroscopy. SURGEON: Natividad Gerber MD. AUTOMOBILE REPOSSESSOR: Deshawn Marcus APRN. ANESTHESIA: Monitored anesthesia care with local. ESTIMATED BLOOD LOSS: Minimal. FINDINGS: Catheter tip at superior vena caval - right atrial junction. DISPOSITION: The patient tolerated the procedure well. INDICATIONS FOR PROCEDURE: The patient is an 84-year-old female, who was diagnosed with right lung cancer three years ago and then underwent radiation therapy as well as chemotherapy. She initially did well; however, had reoccurrence of the lesion and has chosen to proceed with salvage chemotherapy. DESCRIPTION OF PROCEDURE: The patient was brought to the operating room and laid supine on the table. After adequate IV pain and sedative medications and monitored anesthesia care, the chest and neck were prepped and draped in a standard surgical fashion. A 1% lidocaine with epinephrine was then used to anesthetize overlying skin in the left subclavian region and the left subclavian vein was then cannulated withdrawing of venous blood. The guidewire was then inserted under fluoroscopy. The cannulating needle removed and a skin incision made using a 15 blade. The dilator and sheath were then introduced over the guidewire. The dilator and guidewire were then removed and the Groshong implantable catheter was placed until the tip was at the superior vena caval - right atrial junction and the sheath was then removed. The inner wire within the catheter was then removed and the port placed onto the catheter. The subcutaneous reservoir was then created by extending the skin incision laterally using a 15 blade. A plane was then created between the subcutaneous fat and the anterior pectoralis fascia using blunt dissection as well as electrocautery with visualization of good hemostasis. The port was then placed into the reservoir and sutured to the anterior pectoralis fascia using interrupted 3-0 Vicryl suture. The subcutaneous tissue was then reapproximated using 3-0 Vicryl interrupted sutures. Skin was closed using 4-0 Monocryl running subcuticular suture. Wound was then cleaned and covered with Dermabond. The patient tolerated the procedure well. We will get a post-procedure chest x-ray once confirmation of placement, the port may be accessed and used at any time. Job ID: [id number] DocumentID: [id number] Dictated Date: 11/08/2019 11:53:02 Rail Switch Operator Date: 11/08/2019 14:30:09 Dictated By: NATIVIDAD GERBER MD
== END 2019-11-08 13:15 | disposition home or self-care (01) ==
LOC: SDC 09:03
PROVIDERS: ATTEND Surgery
DX: C34.91 Malignant neoplasm of unspecified part of right bronchus or lung (principal); I10 Essential (primary) hypertension; I25.10 Atherosclerotic heart disease of native coronary artery without angina pectoris; E78.00 Pure hypercholesterolemia, unspecified; F41.9 Anxiety disorder, unspecified; E78.5 Hyperlipidemia, unspecified; J44.9 Chronic obstructive pulmonary disease, unspecified; F17.210 Nicotine dependence, cigarettes, uncomplicated; M06.9 Rheumatoid arthritis, unspecified; Z85.3 Personal history of malignant neoplasm of breast; Z79.82 Long term (current) use of aspirin; Z79.899 Other long term (current) drug therapy; Z88.1 Allergy status to other antibiotic agents; Z88.8 Allergy status to other drugs, medicaments and biological substances; Z11.2 Encounter for screening for other bacterial diseases
CPT/HCPCS: 36561; 71045; 76000; 87081; C1788

== ENCOUNTER → 2019-11-13 | Outpatient (CLI) | payer MEDICARE, MEDICAID ==
[~2019-11-13] MED LIST changes: +ACHD5005 PO
--- NOTE | 2019-11-13 13:09 | Diagnostic Imaging Report ---
INDICATION: Pneumothorax. COMPARISON: 11/08/2019. FINDINGS: There is a large left pneumothorax. The heart size is normal. The mediastinum is unremarkable. Opacity in the right midlung is suspect for an underlying neoplasm. IMPRESSION: Increasing left pneumothorax. Unchanged mass in the right midlung. Dictated by: Dictated on workstation # [id number]
== END ==
LOC: RAD 11:37
PROVIDERS: ATTEND Surgery
DX: J93.9 Pneumothorax, unspecified (principal)
CPT/HCPCS: 71046

== ENCOUNTER 2019-11-15 10:23 | Outpatient (RCR) | payer MEDICARE, MEDICAID ==
--- NOTE | 2019-11-14 11:16 | Progress Note-Pre Operative ---
Pre-Operative Progress Note H&P Reviewed The H&P was reviewed, patient examined and no changes noted. Date Seen by Provider: Nov 14, 2019 Time Seen by Provider: 11:00 Date H&P Reviewed: Nov 14, 2019 Time H&P Reviewed: 11:00 Pre-Operative Diagnosis: left symptomatic pneumothorax NATIVIDAD GERBER MD Nov 14, 2019 11:16
--- NOTE | 2019-11-14 11:20 | NUR ---
O2 PLACED ON PT AT 2L PER NC. SAO2 88 TO 90% ON ROOM AIR.
--- NOTE | 2019-11-14 12:32 | NUR ---
FENTANYL 75 MCG GIVEN SLOW IV PUSH PER DR GERBER.
--- NOTE | 2019-11-14 12:38 | NUR ---
THORA-VENT PLACED, LEFT UPPER, ANTERIOR CHEST PER DR GERBER, BEDSIDE PROCEDURE.
--- NOTE | 2019-11-14 13:09 | NUR ---
POST PROCEDURE PORTABLE CHEST X-RAY OBTAINED PER ORDER.
--- NOTE | 2019-11-14 13:30 | Diagnostic Imaging Report ---
INDICATION: Chest tube placement. Time of exam 1:09 PM Correlation is made with prior chest from one day earlier. Small caliber chest tube on the left has been placed. The basilar portion of the pneumothorax on the left has significantly decreased in size and is now small. There appears to be some residual left apical pneumothorax, small. Trachea is midline. The right lung is stable. IMPRESSION: Left-sided small caliber chest tube placement with reduction in the lower left pneumothorax when compared with exam one day earlier. Dictated by: Dictated on workstation # [id number]
--- NOTE | 2019-11-14 14:08 | NUR ---
HAD HAD LUNCH, REPORTS SHE FEELS SHE IS BREATHING MORE EASILY. SAO2 96-98% WITH O2 AT 2L PER NC. SECOND POST PROCEDURE CHEST X-RAY OBTAINED PER DR BUZZ GUERRIER.
--- NOTE | 2019-11-14 14:15 | Diagnostic Imaging Report ---
INDICATION: Follow-up left pneumothorax. TIME OF EXAM: 02:08 p.m. COMPARISON: Correlation is made with prior study earlier same day. FINDINGS: The Thora-Vent chest tube on the left is noted. This has been repositioned. There continues to be a decrease in size of left-sided pneumothorax. The basilar component is now very small. There is a very small left apical component. Heart size is stable. IMPRESSION: Left Thora-Vent repositioning. Left-sided pneumothorax has decreased in size and is now small. Dictated by: Dictated on workstation # [id number]
[2019-11-14 14:38] VITALS: BP 127/70
--- NOTE | 2019-11-14 14:38 | NUR ---
ALERT, DENIES COMPLAINTS. O2 DC'D AT 1420 WITH SAO2 93-94% ON ROOM AIR. LEFT UPPER CHEST POWER PORT FLUSHED WITH 20 ML NS, DRESSING D/I. THORA-VENT DRESSING D/I TO SITE. PER INSTRUCTIONS FROM DR GERBER, THORA-VENT AND PORT ACCESS WILL BE LEFT IN PLACE, PT TO BE DISMISSED TODAY WITH RETURN AT 1015 TOMORROW, 11/15/19 FOR EVALUATION AND PLANNED REMOVAL OF THORA-VENT AND REMOVAL OF POWER PORT ACCESS. INSTRUCTIONS PROVIDED, PT VERBALIZED UNDERSTANDING.
--- NOTE | 2019-11-14 21:43 | OPERATIVE REPORT ---
DATE OF SERVICE: 11/14/2019 PREOPERATIVE DIAGNOSIS: Persistent left pneumothorax. POSTOPERATIVE DIAGNOSIS: Persistent left pneumothorax. PROCEDURE: Placement of left Thora-Vent chest tube. SURGEON: Natividad Gerber MD ANESTHESIA: Local. ESTIMATED BLOOD LOSS: Minimal. FINDINGS: Majority of the lung insufflated with only a small residual at the lung apex. DISPOSITION: The patient tolerated the procedure well. INDICATIONS: The patient is an 84-year-old female who was diagnosed with a right-sided lung cancer. She underwent chemotherapy as well as radiation, however, had reoccurrence. She has been seen by Oncology and the plan of treatment was for salvage chemotherapy. She underwent placement of a left subclavian Groshong implantable catheter six days ago and a small pneumothorax was detected; however, she had a followup x-ray, which did show increase in size of the pneumothorax and she became symptomatic as well. The anterior left chest was prepped and draped in standard surgical fashion. A 1% lidocaine was then used to anesthetize the skin, subcutaneous layer, muscle layer as well as the parietal pleura at approximately the third intercostal space. A small transverse skin incision was then made using a #11 blade and the chest tube and trocar were then introduced without any resistance. Once the diaphragm was moving to indicate adequate placement, the catheter was advanced over the trocar without any resistance. The chest tube and variceal combination device was then placed onto the anterior chest wall with the provided occlusive dressing. A followup chest x-ray immediately after as well as 30 minutes after did show a small residual apical pneumothorax. It was decided to leave the Thora-Vent in place overnight and have her come back today surgery and get a repeat x-ray and if resolve, we will then remove the chest tube. Job ID: [id number] DocumentID: [id number] Dictated Date: 11/14/2019 14:35:50 [employer]ing [employer] Date: 11/14/2019 21:43:28 Dictated By: NATIVIDAD GERBER MD
[~2019-11-15] VITALS: Ht 167.6 cm; Wt 59500.0 kg
[2019-11-15 10:15] VITALS: BP 152/80
[~2019-11-15 10:23] MED LIST changes: +ACETAMINOPHEN 325 MG TABLET PO PRN; +LIDOCAINE 1% INJ 20 ML 20 ML VIAL ONE; +ONDANSETRON 4 MG/2 ML (SDV) Z0FRAN IVP PRN; +fentaNYL INJECTION 100 MCG/2 ML AMP IV PRN; +fentaNYL INJECTION 100 MCG/2 ML AMP IVP PRN; +oxyCODONE/APAP 5/325MG (PERCOCET 5) TABLET PO PRN
--- NOTE | 2019-11-15 11:46 | Diagnostic Imaging Report ---
INDICATION: Thora-Vent removal. TIME OF EXAM: 11:39 AM Correlation is made with prior exam from earlier same day. FINDINGS: Thora-Vent vent chest tube has been removed. No pneumothorax is seen. Left chest wall port remains in place with tip overlying the SVC. Right basilar parenchymal density is stable. IMPRESSION: Thora-Vent removal. No pneumothorax is identified. Dictated by: Dictated on workstation # [id number]
--- NOTE | 2019-11-15 11:50 | Diagnostic Imaging Report ---
INDICATION: Pneumothorax, follow-up. Time of exam 10:44 AM Correlation is made with prior exam one day earlier. Thora vent chest tube on the left is noted. There has been complete reexpansion of the left lung. No residual pneumothorax is detected. Left chest wall Port-A-Cath has tip overlying the SVC. Right basilar lung mass is noted. IMPRESSION: No residual pneumothorax is identified. Dictated by: Dictated on workstation # [id number]
== END 2019-11-15 11:50 | disposition home or self-care (01) ==
LOC: SDC 10:23
PROVIDERS: ATTEND Surgery
DX: J93.9 Pneumothorax, unspecified (principal)
CPT/HCPCS: 32555; 71045

== ENCOUNTER 2020-01-14 09:30 | Outpatient (RCR) | payer MEDICARE, MEDICAID ==
[2019-10-18 11:23] LABS: BASOPHILS % (AUTO) 0 % (0-10); EOSINOPHILS # (AUTO) 0.1 10^3/uL (0.0-0.3); EOSINOPHILS % (AUTO) 1 % (0-10); HEMATOCRIT 44 % (35-52); HEMOGLOBIN 14.5 G/DL (11.5-16.0); LYMPHOCYTES # (AUTO) 2.1 X 10^3 (1.0-4.0); LYMPHOCYTES % (AUTO) 22 % (12-44); MEAN CORPUSCULAR HEMOGLOBIN 29 PG (25-34); MEAN CORPUSCULAR HGB CONC 33 G/DL (32-36); MEAN CORPUSCULAR VOLUME 87 FL (80-99); MEAN PLATELET VOLUME 10.3 FL (7.4-10.4); MONOCYTES # (AUTO) 0.6 X 10^3 (0.0-1.0); MONOCYTES % (AUTO) 6 % (0-12); NEUTROPHILS # (AUTO) 6.9 X 10^3 (1.8-7.8); NEUTROPHILS % (AUTO) 70 % (42-75); PLATELET COUNT 269 10^3/uL (130-400); WHITE BLOOD COUNT 9.8 10^3/uL (4.3-11.0)
[2019-10-18 11:42] LABS: ALANINE AMINOTRANSFERASE 11 U/L (0-55); ALBUMIN 4.2 GM/DL (3.2-4.5); ALKALINE PHOSPHATASE 91 U/L (40-136); BILIRUBIN,TOTAL 0.5 MG/DL (0.1-1.0); BUN/CREATININE RATIO 20; CALCIUM 9.7 MG/DL (8.5-10.1); CARBON DIOXIDE 27 MMOL/L (21-32); CHLORIDE 103 MMOL/L (98-107); CREATININE SERUM 0.84 MG/DL (0.60-1.30); GFR ESTIMATED > 60; GLUCOSE 117 MG/DL (70-105); POTASSIUM 3.6 MMOL/L (3.6-5.0); SODIUM 140 MMOL/L (135-145); TOTAL PROTEIN 7.3 GM/DL (6.4-8.2)
[2019-11-26 11:02] LABS: BASOPHILS % (AUTO) 0 % (0-10); EOSINOPHILS # (AUTO) 0.1 10^3/uL (0.0-0.3); EOSINOPHILS % (AUTO) 1 % (0-10); HEMATOCRIT 44 % (35-52); HEMOGLOBIN 14.2 G/DL (11.5-16.0); LYMPHOCYTES # (AUTO) 1.8 X 10^3 (1.0-4.0); LYMPHOCYTES % (AUTO) 18 % (12-44); MEAN CORPUSCULAR HEMOGLOBIN 29 PG (25-34); MEAN CORPUSCULAR HGB CONC 33 G/DL (32-36); MEAN CORPUSCULAR VOLUME 88 FL (80-99); MEAN PLATELET VOLUME 10.1 FL (7.4-10.4); MONOCYTES # (AUTO) 0.7 X 10^3 (0.0-1.0); MONOCYTES % (AUTO) 7 % (0-12); NEUTROPHILS # (AUTO) 7.5 X 10^3 (1.8-7.8); NEUTROPHILS % (AUTO) 74 % (42-75); PLATELET COUNT 277 10^3/uL (130-400); WHITE BLOOD COUNT 10.2 10^3/uL (4.3-11.0)
[2019-11-26 11:20] LABS: ALANINE AMINOTRANSFERASE 12 U/L (0-55); ALBUMIN 3.9 GM/DL (3.2-4.5); ALKALINE PHOSPHATASE 88 U/L (40-136); BILIRUBIN,TOTAL 0.4 MG/DL (0.1-1.0); BUN/CREATININE RATIO 20; CALCIUM 9.5 MG/DL (8.5-10.1); CARBON DIOXIDE 26 MMOL/L (21-32); CHLORIDE 101 MMOL/L (98-107); CREATININE SERUM 0.79 MG/DL (0.60-1.30); GFR ESTIMATED > 60; GLUCOSE 118 MG/DL (70-105); MAGNESIUM 1.8 MG/DL (1.6-2.4); POTASSIUM 3.5 MMOL/L (3.6-5.0); SODIUM 138 MMOL/L (135-145); TOTAL PROTEIN 6.9 GM/DL (6.4-8.2)
[2019-12-03 10:40] LABS: BASOPHILS % (AUTO) 1 % (0-10); EOSINOPHILS # (AUTO) 0.2 10^3/uL (0.0-0.3); EOSINOPHILS % (AUTO) 3 % (0-10); HEMATOCRIT 41 % (35-52); HEMOGLOBIN 13.5 g/dL (11.5-16.0); LYMPHOCYTES # (AUTO) 1.8 10^3/uL (1.0-4.0); LYMPHOCYTES % (AUTO) 28 % (12-44); MEAN CORPUSCULAR HEMOGLOBIN 29 pg (25-34); MEAN CORPUSCULAR HGB CONC 33 g/dL (32-36); MEAN CORPUSCULAR VOLUME 88 fL (80-99); MEAN PLATELET VOLUME 10.4 fL (9.0-12.2); MONOCYTES # (AUTO) 0.2 10^3/uL (0.0-1.0); MONOCYTES % (AUTO) 2 % (0-12); NEUTROPHILS # (AUTO) 4.2 10^3/uL (1.8-7.8); NEUTROPHILS % (AUTO) 65 % (42-75); PLATELET COUNT 278 10^3/uL (130-400); WHITE BLOOD COUNT 6.5 10^3/uL (4.3-11.0)
[2019-12-03 11:07] LABS: BUN/CREATININE RATIO 19; CALCIUM 9.1 MG/DL (8.5-10.1); CARBON DIOXIDE 30 MMOL/L (21-32); CHLORIDE 96 MMOL/L (98-107); CREATININE SERUM 0.78 MG/DL (0.60-1.30); GFR ESTIMATED > 60; GLUCOSE 114 MG/DL (70-105); POTASSIUM 3.1 MMOL/L (3.6-5.0); SODIUM 135 MMOL/L (135-145)
[2019-12-10 10:52] LABS: BASOPHILS % (AUTO) 1 % (0-10); EOSINOPHILS # (AUTO) 0.1 10^3/uL (0.0-0.3); EOSINOPHILS % (AUTO) 2 % (0-10); HEMATOCRIT 42 % (35-52); HEMOGLOBIN 13.5 g/dL (11.5-16.0); LYMPHOCYTES # (AUTO) 1.6 10^3/uL (1.0-4.0); LYMPHOCYTES % (AUTO) 47 % (12-44); MEAN CORPUSCULAR HEMOGLOBIN 29 pg (25-34); MEAN CORPUSCULAR HGB CONC 33 g/dL (32-36); MEAN CORPUSCULAR VOLUME 88 fL (80-99); MEAN PLATELET VOLUME 10.4 fL (9.0-12.2); MONOCYTES # (AUTO) 0.2 10^3/uL (0.0-1.0); MONOCYTES % (AUTO) 6 % (0-12); NEUTROPHILS # (AUTO) 1.5 10^3/uL (1.8-7.8); NEUTROPHILS % (AUTO) 43 % (42-75); PLATELET COUNT 349 10^3/uL (130-400); WHITE BLOOD COUNT 3.5 10^3/uL (4.3-11.0)
[2019-12-10 10:58] LABS: CALCIUM 9.3 MG/DL (8.5-10.1); CREATININE SERUM 0.89 MG/DL (0.60-1.30)
[2019-12-17 10:55] LABS: BASOPHILS # (AUTO) 0.1 10^3/uL (0.0-0.1); BASOPHILS % (AUTO) 1 % (0-10); EOSINOPHILS # (AUTO) 0.2 10^3/uL (0.0-0.3); EOSINOPHILS % (AUTO) 2 % (0-10); HEMATOCRIT 40 % (35-52); LYMPHOCYTES % (AUTO) 24 % (12-44); MEAN CORPUSCULAR HEMOGLOBIN 29 pg (25-34); MEAN CORPUSCULAR HGB CONC 33 g/dL (32-36); MEAN CORPUSCULAR VOLUME 88 fL (80-99); MEAN PLATELET VOLUME 9.2 fL (9.0-12.2); MONOCYTES # (AUTO) 0.9 10^3/uL (0.0-1.0); MONOCYTES % (AUTO) 11 % (0-12); NEUTROPHILS % (AUTO) 61 % (42-75); PLATELET COUNT 376 10^3/uL (130-400); WHITE BLOOD COUNT 8.2 10^3/uL (4.3-11.0)
[2019-12-17 11:20] LABS: ALANINE AMINOTRANSFERASE 9 U/L (0-55); ALBUMIN 3.8 GM/DL (3.2-4.5); ALKALINE PHOSPHATASE 86 U/L (40-136); BILIRUBIN,TOTAL 0.3 MG/DL (0.1-1.0); BUN/CREATININE RATIO 19; CALCIUM 9.3 MG/DL (8.5-10.1); CARBON DIOXIDE 27 MMOL/L (21-32); CHLORIDE 97 MMOL/L (98-107); CREATININE SERUM 0.77 MG/DL (0.60-1.30); GFR ESTIMATED > 60; GLUCOSE 122 MG/DL (70-105); MAGNESIUM 1.7 MG/DL (1.6-2.4); POTASSIUM 3.4 MMOL/L (3.6-5.0); SODIUM 136 MMOL/L (135-145); TOTAL PROTEIN 6.6 GM/DL (6.4-8.2)
[2019-12-24 09:51] LABS: BASOPHILS # (AUTO) 0.1 10^3/uL (0.0-0.1); BASOPHILS % (AUTO) 1 % (0-10); EOSINOPHILS # (AUTO) 0.2 10^3/uL (0.0-0.3); EOSINOPHILS % (AUTO) 2 % (0-10); HEMATOCRIT 39 % (35-52); HEMOGLOBIN 12.9 g/dL (11.5-16.0); LYMPHOCYTES # (AUTO) 2.5 10^3/uL (1.0-4.0); LYMPHOCYTES % (AUTO) 32 % (12-44); MEAN CORPUSCULAR HEMOGLOBIN 29 pg (25-34); MEAN CORPUSCULAR HGB CONC 33 g/dL (32-36); MEAN CORPUSCULAR VOLUME 87 fL (80-99); MEAN PLATELET VOLUME 10.1 fL (9.0-12.2); MONOCYTES # (AUTO) 0.4 10^3/uL (0.0-1.0); MONOCYTES % (AUTO) 5 % (0-12); NEUTROPHILS # (AUTO) 4.7 10^3/uL (1.8-7.8); NEUTROPHILS % (AUTO) 60 % (42-75); PLATELET COUNT 303 10^3/uL (130-400); WHITE BLOOD COUNT 7.9 10^3/uL (4.3-11.0)
[2019-12-24 10:12] LABS: ALANINE AMINOTRANSFERASE 13 U/L (0-55); ALBUMIN 3.8 GM/DL (3.2-4.5); ALKALINE PHOSPHATASE 90 U/L (40-136); BILIRUBIN,TOTAL 0.4 MG/DL (0.1-1.0); BUN/CREATININE RATIO 22; CALCIUM 9.2 MG/DL (8.5-10.1); CARBON DIOXIDE 28 MMOL/L (21-32); CHLORIDE 96 MMOL/L (98-107); CREATININE SERUM 0.78 MG/DL (0.60-1.30); GFR ESTIMATED > 60; GLUCOSE 133 MG/DL (70-105); POTASSIUM 3.3 MMOL/L (3.6-5.0); SODIUM 137 MMOL/L (135-145); TOTAL PROTEIN 6.5 GM/DL (6.4-8.2)
[2019-12-31 09:46] LABS: BASOPHILS % (AUTO) 1 % (0-10); EOSINOPHILS # (AUTO) 0.1 10^3/uL (0.0-0.3); EOSINOPHILS % (AUTO) 3 % (0-10); HEMATOCRIT 40 % (35-52); HEMOGLOBIN 12.9 g/dL (11.5-16.0); LYMPHOCYTES # (AUTO) 1.9 10^3/uL (1.0-4.0); LYMPHOCYTES % (AUTO) 49 % (12-44); MEAN CORPUSCULAR HEMOGLOBIN 29 pg (25-34); MEAN CORPUSCULAR HGB CONC 33 g/dL (32-36); MEAN CORPUSCULAR VOLUME 89 fL (80-99); MEAN PLATELET VOLUME 10.1 fL (9.0-12.2); MONOCYTES # (AUTO) 0.3 10^3/uL (0.0-1.0); MONOCYTES % (AUTO) 9 % (0-12); NEUTROPHILS # (AUTO) 1.5 10^3/uL (1.8-7.8); NEUTROPHILS % (AUTO) 39 % (42-75); PLATELET COUNT 292 10^3/uL (130-400); WHITE BLOOD COUNT 3.8 10^3/uL (4.3-11.0)
[2019-12-31 10:14] LABS: BUN/CREATININE RATIO 20; CALCIUM 9.5 MG/DL (8.5-10.1); CARBON DIOXIDE 27 MMOL/L (21-32); CHLORIDE 97 MMOL/L (98-107); CREATININE SERUM 0.79 MG/DL (0.60-1.30); GFR ESTIMATED > 60; GLUCOSE 127 MG/DL (70-105); POTASSIUM 3.2 MMOL/L (3.6-5.0); SODIUM 138 MMOL/L (135-145)
[2020-01-07 10:26] LABS: BASOPHILS # (AUTO) 0.1 10^3/uL (0.0-0.1); BASOPHILS % (AUTO) 1 % (0-10); EOSINOPHILS # (AUTO) 0.1 10^3/uL (0.0-0.3); EOSINOPHILS % (AUTO) 1 % (0-10); HEMATOCRIT 39 % (35-52); HEMOGLOBIN 12.5 g/dL (11.5-16.0); LYMPHOCYTES # (AUTO) 1.9 10^3/uL (1.0-4.0); LYMPHOCYTES % (AUTO) 29 % (12-44); MEAN CORPUSCULAR HEMOGLOBIN 28 pg (25-34); MEAN CORPUSCULAR HGB CONC 32 g/dL (32-36); MEAN CORPUSCULAR VOLUME 89 fL (80-99); MEAN PLATELET VOLUME 9.5 fL (9.0-12.2); MONOCYTES # (AUTO) 0.8 10^3/uL (0.0-1.0); MONOCYTES % (AUTO) 13 % (0-12); NEUTROPHILS # (AUTO) 3.6 10^3/uL (1.8-7.8); NEUTROPHILS % (AUTO) 56 % (42-75); PLATELET COUNT 291 10^3/uL (130-400); WHITE BLOOD COUNT 6.5 10^3/uL (4.3-11.0)
[2020-01-07 10:41] LABS: ALANINE AMINOTRANSFERASE 13 U/L (0-55); ALBUMIN 3.9 GM/DL (3.2-4.5); ALKALINE PHOSPHATASE 89 U/L (40-136); BILIRUBIN,TOTAL 0.3 MG/DL (0.1-1.0); BUN/CREATININE RATIO 18; CALCIUM 9.5 MG/DL (8.5-10.1); CARBON DIOXIDE 29 MMOL/L (21-32); CHLORIDE 100 MMOL/L (98-107); CREATININE SERUM 0.78 MG/DL (0.60-1.30); GFR ESTIMATED > 60; GLUCOSE 122 MG/DL (70-105); MAGNESIUM 1.7 MG/DL (1.6-2.4); POTASSIUM 3.5 MMOL/L (3.6-5.0); SODIUM 139 MMOL/L (135-145); TOTAL PROTEIN 6.7 GM/DL (6.4-8.2)
[~2020-01-14] VITALS: Ht 162.6 cm; Wt 59.0 kg
[~2020-01-14 09:30] MED LIST changes: -ACETAMINOPHEN 325 MG TABLET PO PRN; -ALPR0.254 PO; +AMLO-250 PO; +AMLO-251 PO; -AMLO10TA7 PO; -AMLO5TAB9 PO; +FOSAPREPITANT (CANCER CENTER) 150 MG in NS (IVPB) CANCER CENTER ONLY 150 ML IV SCH; -LIDOCAINE 1% INJ 20 ML 20 ML VIAL ONE; +NS IV 1000 ML (CANCER CTR) IV SCH; -ONDANSETRON 4 MG/2 ML (SDV) Z0FRAN IVP PRN; +PACLitaxel PROTEIN 130 MG in EMPTY IV BAG (PVC) CANCER CTR 1 EA IV SCH; +PEMBROLIZUMAB 200 MG in NS (IVPB) CANCER CENTER 50 ML IV SCH; -fentaNYL INJECTION 100 MCG/2 ML AMP IV PRN; -fentaNYL INJECTION 100 MCG/2 ML AMP IVP PRN; -oxyCODONE/APAP 5/325MG (PERCOCET 5) TABLET PO PRN
[2020-01-14 09:49] LABS: BASOPHILS # (AUTO) 0.1 10^3/uL (0.0-0.1); BASOPHILS % (AUTO) 1 % (0-10); EOSINOPHILS # (AUTO) 0.2 10^3/uL (0.0-0.3); EOSINOPHILS % (AUTO) 2 % (0-10); HEMATOCRIT 36 % (35-52); HEMOGLOBIN 11.9 g/dL (11.5-16.0); LYMPHOCYTES # (AUTO) 1.9 10^3/uL (1.0-4.0); LYMPHOCYTES % (AUTO) 22 % (12-44); MEAN CORPUSCULAR HEMOGLOBIN 29 pg (25-34); MEAN CORPUSCULAR HGB CONC 33 g/dL (32-36); MEAN CORPUSCULAR VOLUME 89 fL (80-99); MEAN PLATELET VOLUME 10.1 fL (9.0-12.2); MONOCYTES # (AUTO) 0.3 10^3/uL (0.0-1.0); MONOCYTES % (AUTO) 3 % (0-12); NEUTROPHILS # (AUTO) 6.4 10^3/uL (1.8-7.8); NEUTROPHILS % (AUTO) 73 % (42-75); PLATELET COUNT 262 10^3/uL (130-400); WHITE BLOOD COUNT 8.8 10^3/uL (4.3-11.0)
[2020-01-14 10:14] LABS: ALANINE AMINOTRANSFERASE 12 U/L (0-55); ALBUMIN 3.8 GM/DL (3.2-4.5); ALKALINE PHOSPHATASE 80 U/L (40-136); BILIRUBIN,TOTAL 0.5 MG/DL (0.1-1.0); BUN/CREATININE RATIO 24; CALCIUM 9.4 MG/DL (8.5-10.1); CARBON DIOXIDE 28 MMOL/L (21-32); CHLORIDE 97 MMOL/L (98-107); GFR ESTIMATED > 60; GLUCOSE 128 MG/DL (70-105); MAGNESIUM 1.6 MG/DL (1.6-2.4); POTASSIUM 3.1 MMOL/L (3.6-5.0); SODIUM 138 MMOL/L (135-145); TOTAL PROTEIN 6.7 GM/DL (6.4-8.2)
== END 2020-01-16 | disposition still patient (30) ==
LOC: ONC 09:30
PROVIDERS: ATTEND Internal Medicine Hematology & Oncology
DX: C34.2 Malignant neoplasm of middle lobe, bronchus or lung (principal); Z98.890 Other specified postprocedural states; Z92.3 Personal history of irradiation; Z92.21 Personal history of antineoplastic chemotherapy
CPT/HCPCS: 36591; 80048; 80053; 83735; 84443; 85025; 96367; 96375; 96413; 96417; 99213

== ENCOUNTER → 2020-02-14 | Outpatient (CLI) | payer MEDICARE, MEDICAID ==
[~2020-02-14] MED LIST changes: +CATHETER FLUSH 10 ML SYR IV PRN; -FOSAPREPITANT (CANCER CENTER) 150 MG in NS (IVPB) CANCER CENTER ONLY 150 ML IV SCH; +HOLD METFORMIN - RECEIVED CONTRAST 20 ML VIAL IV SCH; +IOHEXOL 350 MG/ML 100 ML (OMNIPAQUE 350) VIAL IV ONE; +NS 100 ML (IVPB) BAG IV ONE; -NS IV 1000 ML (CANCER CTR) IV SCH; -PACLitaxel PROTEIN 130 MG in EMPTY IV BAG (PVC) CANCER CTR 1 EA IV SCH; -PEMBROLIZUMAB 200 MG in NS (IVPB) CANCER CENTER 50 ML IV SCH
[2020-02-14] MEDS: CATHETER FLUSH 10 ML SYR IV PRN ×2 (10:35→10:50)
--- NOTE | 2020-02-14 11:15 | Diagnostic Imaging Report ---
PROCEDURE: CT chest and abdomen with contrast. TECHNIQUE: Multiple contiguous axial images were obtained through the chest and abdomen after the administration of intravenous contrast. Auto Exposure Controls were utilized during the CT exam to meet ALARA standards for radiation dose reduction. INDICATION: Lung cancer. COMPARISON: Correlation is made with prior CT from 10/18/2019. FINDINGS: CT CHEST: Left chest wall port has the tip at the SVC-right atrial junction. No axillary lymphadenopathy is detected. No definite mediastinal or hilar lymphadenopathy is detected. There is no pericardial or pleural fluid. The lobulated mass in the right middle lobe continues to show increase in size, now measuring approximately 3.8 x 2.3 cm compared with 2.5 x 2.0 cm. No other pulmonary parenchymal masses are seen. IMPRESSION: Enlarging right middle lobe mass when compared with prior CT from 10/18/2019. No thoracic lymphadenopathy is detected. CT ABDOMEN: No discrete liver mass is identified. The gallbladder is unremarkable. No biliary ductal dilatation is seen. The pancreas and spleen are unremarkable. No adrenal mass is identified. A right renal cyst appears stable. Left kidney is unremarkable. Aorta is heavily calcified but nonaneurysmal. No central retroperitoneal or mesenteric lymphadenopathy is identified. Bowel loops are unremarkable. There is no free fluid. There is no fluid collection. Bony structures are unremarkable. IMPRESSION: Stable CT abdomen with contrast when compared with exam from 10/18/2019. There is no evidence of abdominal metastatic disease. Dictated by: Dictated on workstation # [id number]
--- NOTE | 2020-02-14 14:09 | Diagnostic Imaging Report ---
INDICATION: Lung cancer. The patient was administered 26.3 mCi technetium 99m MDP intravenously and whole-body imaging was performed after a 3 hour delay. CORRELATION is made with prior exam from 10/18/2019. There is normal uptake of activity by the axial and appendicular skeleton. There is uptake by the kidneys with excretion into the urinary bladder. Previously noted focus of uptake involving a lower right anterior rib and the right calvarium is no longer appreciated. No focus is seen to suggest osseous metastatic disease. There are degenerative changes in the left second toe. IMPRESSION: No scintigraphic evidence of osseous metastatic disease. Dictated by: Dictated on workstation # [id number]
== END ==
LOC: CARD 10:25
PROVIDERS: ATTEND Nurse Practitioner Adult Health
DX: C34.90 Malignant neoplasm of unspecified part of unspecified bronchus or lung (principal); C79.51 Secondary malignant neoplasm of bone
CPT/HCPCS: 71260; 74160; 78306; A9503

== ENCOUNTER 2020-03-03 10:11 | Outpatient (RCR) | payer MEDICARE, MEDICAID ==
[2020-01-21 09:26] LABS: BASOPHILS % (AUTO) 1 % (0-10); EOSINOPHILS # (AUTO) 0.1 10^3/uL (0.0-0.3); EOSINOPHILS % (AUTO) 3 % (0-10); HEMATOCRIT 37 % (35-52); HEMOGLOBIN 11.8 g/dL (11.5-16.0); LYMPHOCYTES # (AUTO) 1.8 10^3/uL (1.0-4.0); LYMPHOCYTES % (AUTO) 38 % (12-44); MEAN CORPUSCULAR HEMOGLOBIN 29 pg (25-34); MEAN CORPUSCULAR HGB CONC 32 g/dL (32-36); MEAN CORPUSCULAR VOLUME 90 fL (80-99); MEAN PLATELET VOLUME 9.9 fL (9.0-12.2); MONOCYTES # (AUTO) 0.3 10^3/uL (0.0-1.0); MONOCYTES % (AUTO) 7 % (0-12); NEUTROPHILS # (AUTO) 2.4 10^3/uL (1.8-7.8); NEUTROPHILS % (AUTO) 51 % (42-75); PLATELET COUNT 337 10^3/uL (130-400); WHITE BLOOD COUNT 4.7 10^3/uL (4.3-11.0)
[2020-01-21 09:50] LABS: BUN/CREATININE RATIO 17; CALCIUM 9.2 MG/DL (8.5-10.1); CARBON DIOXIDE 29 MMOL/L (21-32); CHLORIDE 95 MMOL/L (98-107); CREATININE SERUM 0.83 MG/DL (0.60-1.30); GFR ESTIMATED > 60; GLUCOSE 134 MG/DL (70-105); POTASSIUM 2.8 MMOL/L (3.6-5.0); SODIUM 138 MMOL/L (135-145)
[2020-01-28 09:56] LABS: BASOPHILS # (AUTO) 0.1 10^3/uL (0.0-0.1); BASOPHILS % (AUTO) 1 % (0-10); EOSINOPHILS # (AUTO) 0.1 10^3/uL (0.0-0.3); EOSINOPHILS % (AUTO) 1 % (0-10); HEMATOCRIT 36 % (35-52); HEMOGLOBIN 11.3 g/dL (11.5-16.0); LYMPHOCYTES # (AUTO) 2.1 10^3/uL (1.0-4.0); LYMPHOCYTES % (AUTO) 29 % (12-44); MEAN CORPUSCULAR HEMOGLOBIN 28 pg (25-34); MEAN CORPUSCULAR HGB CONC 32 g/dL (32-36); MEAN CORPUSCULAR VOLUME 89 fL (80-99); MEAN PLATELET VOLUME 9.5 fL (9.0-12.2); MONOCYTES # (AUTO) 0.8 10^3/uL (0.0-1.0); MONOCYTES % (AUTO) 12 % (0-12); NEUTROPHILS # (AUTO) 3.9 10^3/uL (1.8-7.8); NEUTROPHILS % (AUTO) 56 % (42-75); PLATELET COUNT 389 10^3/uL (130-400); WHITE BLOOD COUNT 7.1 10^3/uL (4.3-11.0)
[2020-01-28 10:11] LABS: ALANINE AMINOTRANSFERASE 10 U/L (0-55); ALBUMIN 3.7 GM/DL (3.2-4.5); ALKALINE PHOSPHATASE 89 U/L (40-136); BILIRUBIN,TOTAL 0.3 MG/DL (0.1-1.0); BUN/CREATININE RATIO 15; CALCIUM 9.5 MG/DL (8.5-10.1); CARBON DIOXIDE 27 MMOL/L (21-32); CHLORIDE 99 MMOL/L (98-107); CREATININE SERUM 0.74 MG/DL (0.60-1.30); GFR ESTIMATED > 60; GLUCOSE 114 MG/DL (70-105); MAGNESIUM 1.5 MG/DL (1.6-2.4); POTASSIUM 3.8 MMOL/L (3.6-5.0); SODIUM 139 MMOL/L (135-145); TOTAL PROTEIN 6.6 GM/DL (6.4-8.2)
[2020-02-04 10:34] LABS: BASOPHILS # (AUTO) 0.1 10^3/uL (0.0-0.1); BASOPHILS % (AUTO) 1 % (0-10); EOSINOPHILS # (AUTO) 0.2 10^3/uL (0.0-0.3); EOSINOPHILS % (AUTO) 2 % (0-10); HEMATOCRIT 35 % (35-52); HEMOGLOBIN 11.1 g/dL (11.5-16.0); LYMPHOCYTES # (AUTO) 2.2 10^3/uL (1.0-4.0); LYMPHOCYTES % (AUTO) 27 % (12-44); MEAN CORPUSCULAR HEMOGLOBIN 29 pg (25-34); MEAN CORPUSCULAR HGB CONC 32 g/dL (32-36); MEAN CORPUSCULAR VOLUME 91 fL (80-99); MONOCYTES # (AUTO) 0.3 10^3/uL (0.0-1.0); MONOCYTES % (AUTO) 4 % (0-12); NEUTROPHILS # (AUTO) 5.2 10^3/uL (1.8-7.8); NEUTROPHILS % (AUTO) 65 % (42-75); PLATELET COUNT 380 10^3/uL (130-400); WHITE BLOOD COUNT 8.1 10^3/uL (4.3-11.0)
[2020-02-04 11:09] LABS: BUN/CREATININE RATIO 18; CALCIUM 9.4 MG/DL (8.5-10.1); CARBON DIOXIDE 28 MMOL/L (21-32); CHLORIDE 97 MMOL/L (98-107); CREATININE SERUM 0.73 MG/DL (0.60-1.30); GFR ESTIMATED > 60; GLUCOSE 113 MG/DL (70-105); POTASSIUM 3.3 MMOL/L (3.6-5.0); SODIUM 135 MMOL/L (135-145)
[2020-02-14 09:59] LABS: BASOPHILS # (AUTO) 0.1 10^3/uL (0.0-0.1); BASOPHILS % (AUTO) 1 % (0-10); EOSINOPHILS # (AUTO) 0.2 10^3/uL (0.0-0.3); EOSINOPHILS % (AUTO) 2 % (0-10); HEMATOCRIT 39 % (35-52); HEMOGLOBIN 12.3 g/dL (11.5-16.0); LYMPHOCYTES # (AUTO) 1.8 10^3/uL (1.0-4.0); LYMPHOCYTES % (AUTO) 24 % (12-44); MEAN CORPUSCULAR HEMOGLOBIN 29 pg (25-34); MEAN CORPUSCULAR HGB CONC 32 g/dL (32-36); MEAN CORPUSCULAR VOLUME 92 fL (80-99); MEAN PLATELET VOLUME 9.6 fL (9.0-12.2); MONOCYTES # (AUTO) 0.8 10^3/uL (0.0-1.0); MONOCYTES % (AUTO) 10 % (0-12); NEUTROPHILS # (AUTO) 4.8 10^3/uL (1.8-7.8); NEUTROPHILS % (AUTO) 63 % (42-75); PLATELET COUNT 325 10^3/uL (130-400); WHITE BLOOD COUNT 7.7 10^3/uL (4.3-11.0)
[2020-02-14 10:14] LABS: BUN/CREATININE RATIO 18; CALCIUM 9.7 MG/DL (8.5-10.1); CARBON DIOXIDE 29 MMOL/L (21-32); CHLORIDE 99 MMOL/L (98-107); CREATININE SERUM 0.79 MG/DL (0.60-1.30); GFR ESTIMATED > 60; GLUCOSE 124 MG/DL (70-105); POTASSIUM 3.7 MMOL/L (3.6-5.0); SODIUM 138 MMOL/L (135-145)
[2020-02-18 10:16] LABS: BASOPHILS # (AUTO) 0.1 10^3/uL (0.0-0.1); BASOPHILS % (AUTO) 1 % (0-10); EOSINOPHILS # (AUTO) 0.1 10^3/uL (0.0-0.3); EOSINOPHILS % (AUTO) 1 % (0-10); HEMATOCRIT 38 % (35-52); HEMOGLOBIN 11.8 g/dL (11.5-16.0); LYMPHOCYTES # (AUTO) 2.1 10^3/uL (1.0-4.0); LYMPHOCYTES % (AUTO) 19 % (12-44); MEAN CORPUSCULAR HEMOGLOBIN 28 pg (25-34); MEAN CORPUSCULAR HGB CONC 31 g/dL (32-36); MEAN CORPUSCULAR VOLUME 92 fL (80-99); MEAN PLATELET VOLUME 9.3 fL (9.0-12.2); MONOCYTES # (AUTO) 0.8 10^3/uL (0.0-1.0); MONOCYTES % (AUTO) 8 % (0-12); NEUTROPHILS # (AUTO) 7.9 10^3/uL (1.8-7.8); NEUTROPHILS % (AUTO) 72 % (42-75); PLATELET COUNT 342 10^3/uL (130-400)
[2020-02-18 10:34] LABS: ALANINE AMINOTRANSFERASE 11 U/L (0-55); ALBUMIN 3.9 GM/DL (3.2-4.5); ALKALINE PHOSPHATASE 88 U/L (40-136); BILIRUBIN,TOTAL 0.3 MG/DL (0.1-1.0); BUN/CREATININE RATIO 19; CALCIUM 9.4 MG/DL (8.5-10.1); CARBON DIOXIDE 28 MMOL/L (21-32); CHLORIDE 99 MMOL/L (98-107); CREATININE SERUM 0.86 MG/DL (0.60-1.30); GFR ESTIMATED > 60; GLUCOSE 121 MG/DL (70-105); MAGNESIUM 1.9 MG/DL (1.6-2.4); POTASSIUM 3.7 MMOL/L (3.6-5.0); SODIUM 138 MMOL/L (135-145); TOTAL PROTEIN 6.7 GM/DL (6.4-8.2)
[2020-02-25 09:48] LABS: BASOPHILS % (AUTO) 1 % (0-10); EOSINOPHILS # (AUTO) 0.1 10^3/uL (0.0-0.3); EOSINOPHILS % (AUTO) 2 % (0-10); HEMATOCRIT 36 % (35-52); HEMOGLOBIN 11.1 g/dL (11.5-16.0); LYMPHOCYTES # (AUTO) 1.6 10^3/uL (1.0-4.0); LYMPHOCYTES % (AUTO) 23 % (12-44); MEAN CORPUSCULAR HEMOGLOBIN 29 pg (25-34); MEAN CORPUSCULAR HGB CONC 31 g/dL (32-36); MEAN CORPUSCULAR VOLUME 92 fL (80-99); MEAN PLATELET VOLUME 10.2 fL (9.0-12.2); MONOCYTES # (AUTO) 0.2 10^3/uL (0.0-1.0); MONOCYTES % (AUTO) 3 % (0-12); NEUTROPHILS % (AUTO) 72 % (42-75); PLATELET COUNT 263 10^3/uL (130-400); WHITE BLOOD COUNT 6.9 10^3/uL (4.3-11.0)
[2020-02-25 10:03] LABS: BUN/CREATININE RATIO 21; CALCIUM 9.1 MG/DL (8.5-10.1); CARBON DIOXIDE 30 MMOL/L (21-32); CHLORIDE 98 MMOL/L (98-107); CREATININE SERUM 0.78 MG/DL (0.60-1.30); GFR ESTIMATED > 60; GLUCOSE 139 MG/DL (70-105); POTASSIUM 3.2 MMOL/L (3.6-5.0); SODIUM 136 MMOL/L (135-145)
[~2020-03-03 10:11] MED LIST changes: -CATHETER FLUSH 10 ML SYR IV PRN; +FOSAPREPITANT (CANCER CENTER) 150 MG in NS (IVPB) CANCER CENTER ONLY 150 ML IV SCH; -HOLD METFORMIN - RECEIVED CONTRAST 20 ML VIAL IV SCH; -IOHEXOL 350 MG/ML 100 ML (OMNIPAQUE 350) VIAL IV ONE; -NS 100 ML (IVPB) BAG IV ONE; +NS IV 1000 ML (CANCER CTR) IV SCH; +PACLitaxel PROTEIN 130 MG in EMPTY IV BAG (PVC) CANCER CTR 1 EA IV SCH; +PEMBROLIZUMAB 200 MG in NS (IVPB) CANCER CENTER 50 ML IV SCH
[2020-03-03 10:28] LABS: BASOPHILS % (AUTO) 1 % (0-10); EOSINOPHILS % (AUTO) 1 % (0-10); HEMATOCRIT 35 % (35-52); HEMOGLOBIN 11.1 g/dL (11.5-16.0); LYMPHOCYTES # (AUTO) 1.4 10^3/uL (1.0-4.0); LYMPHOCYTES % (AUTO) 53 % (12-44); MEAN CORPUSCULAR HEMOGLOBIN 28 pg (25-34); MEAN CORPUSCULAR HGB CONC 32 g/dL (32-36); MEAN CORPUSCULAR VOLUME 90 fL (80-99); MONOCYTES # (AUTO) 0.2 10^3/uL (0.0-1.0); MONOCYTES % (AUTO) 8 % (0-12); NEUTROPHILS % (AUTO) 37 % (42-75); PLATELET COUNT 315 10^3/uL (130-400); WHITE BLOOD COUNT 2.6 10^3/uL (4.3-11.0)
[2020-03-03 10:50] LABS: BUN/CREATININE RATIO 18; CALCIUM 9.3 MG/DL (8.5-10.1); CARBON DIOXIDE 33 MMOL/L (21-32); CHLORIDE 92 MMOL/L (98-107); CREATININE SERUM 0.79 MG/DL (0.60-1.30); GFR ESTIMATED > 60; GLUCOSE 124 MG/DL (70-105); SODIUM 134 MMOL/L (135-145)
[2020-03-10 09:21] LABS: BASOPHILS # (AUTO) 0.1 10^3/uL (0.0-0.1); BASOPHILS % (AUTO) 1 % (0-10); EOSINOPHILS # (AUTO) 0.1 10^3/uL (0.0-0.3); EOSINOPHILS % (AUTO) 1 % (0-10); HEMATOCRIT 34 % (35-52); HEMOGLOBIN 10.6 g/dL (11.5-16.0); LYMPHOCYTES # (AUTO) 1.5 10^3/uL (1.0-4.0); LYMPHOCYTES % (AUTO) 28 % (12-44); MEAN CORPUSCULAR HEMOGLOBIN 29 pg (25-34); MEAN CORPUSCULAR HGB CONC 31 g/dL (32-36); MEAN CORPUSCULAR VOLUME 92 fL (80-99); MEAN PLATELET VOLUME 9.4 fL (9.0-12.2); MONOCYTES # (AUTO) 0.7 10^3/uL (0.0-1.0); MONOCYTES % (AUTO) 13 % (0-12); NEUTROPHILS # (AUTO) 3.2 10^3/uL (1.8-7.8); NEUTROPHILS % (AUTO) 57 % (42-75); PLATELET COUNT 383 10^3/uL (130-400); WHITE BLOOD COUNT 5.6 10^3/uL (4.3-11.0)
[2020-03-10 09:48] LABS: ALANINE AMINOTRANSFERASE 11 U/L (0-55); ALBUMIN 3.7 GM/DL (3.2-4.5); ALKALINE PHOSPHATASE 83 U/L (40-136); BILIRUBIN,TOTAL 0.2 MG/DL (0.1-1.0); BUN/CREATININE RATIO 15; CALCIUM 9.3 MG/DL (8.5-10.1); CARBON DIOXIDE 24 MMOL/L (21-32); CHLORIDE 106 MMOL/L (98-107); CREATININE SERUM 0.74 MG/DL (0.60-1.30); GFR ESTIMATED > 60; GLUCOSE 110 MG/DL (70-105); MAGNESIUM 2.1 MG/DL (1.6-2.4); POTASSIUM 4.3 MMOL/L (3.6-5.0); SODIUM 139 MMOL/L (135-145); TOTAL PROTEIN 6.5 GM/DL (6.4-8.2)
== END 2020-03-10 09:05 | disposition home or self-care (01) ==
LOC: ONC 10:11
PROVIDERS: ATTEND Internal Medicine Hematology & Oncology
DX: C79.51 Secondary malignant neoplasm of bone (principal); C34.2 Malignant neoplasm of middle lobe, bronchus or lung; E78.00 Pure hypercholesterolemia, unspecified; K57.92 Diverticulitis of intestine, part unspecified, without perforation or abscess without bleeding; R03.0 Elevated blood-pressure reading, without diagnosis of hypertension; F17.200 Nicotine dependence, unspecified, uncomplicated
CPT/HCPCS: 36591; 80048; 80053; 83735; 85025; 96367; 96375; 96413; 96417

== ENCOUNTER → 2020-05-01 | Outpatient (CLI) | payer MEDICARE, MEDICAID ==
[~2020-05-01] MED LIST changes: +CATHETER FLUSH 10 ML SYR IV PRN; -FOSAPREPITANT (CANCER CENTER) 150 MG in NS (IVPB) CANCER CENTER ONLY 150 ML IV SCH; +HOLD METFORMIN - RECEIVED CONTRAST 20 ML VIAL IV SCH; +IOHEXOL 350 MG/ML 100 ML (OMNIPAQUE 350) VIAL IV ONE; +NS 100 ML (IVPB) BAG IV ONE; -NS IV 1000 ML (CANCER CTR) IV SCH; -PACLitaxel PROTEIN 130 MG in EMPTY IV BAG (PVC) CANCER CTR 1 EA IV SCH; -PEMBROLIZUMAB 200 MG in NS (IVPB) CANCER CENTER 50 ML IV SCH
--- NOTE | 2020-05-01 12:29 | Diagnostic Imaging Report ---
PROCEDURE: CT chest with contrast, CT abdomen and pelvis with and without contrast. TECHNIQUE: Pre and post intravenous contrast axial imaging of the abdomen and pelvis and post contrast axial imaging of the chest were performed. Auto Exposure Controls were utilized during the CT exam to meet ALARA standards for radiation dose reduction. INDICATION: Right lung carcinoma and breast carcinoma. COMPARISON: Correlation is made with prior CT from 02/14/2020. FINDINGS: CT chest: A left chest wall port remains in place with the tip at the SVC right atrial junction. There is no axillary lymphadenopathy. Normal-sized lymph nodes of mediastinum are stable. No hilar lymphadenopathy is detected. No pericardial or pleural fluid is detected. The previously noted lobulated mass in the right middle lobe measured approximately 4.8 x 2.6 cm compared with 3.8 x 2.3 cm on prior. There is some minimal surrounding infiltrate present. No new parenchymal mass is identified. Bony structures are unremarkable. IMPRESSION: Continued increase in size of right middle lobe mass when compared with examination from 02/14/2020. No thoracic lymphadenopathy is identified. CT abdomen and pelvis: No discrete liver mass is detected. Gallbladder is unremarkable. There is no biliary ductal dilatation. Pancreas and spleen are unremarkable. No adrenal mass is detected. Kidneys appear stable. There are cortical low-attenuation lesions bilaterally, largest on the right in the lower pole measuring 2.7 cm, stable. Aorta and iliac vessels remain heavily calcified. There is no aneurysm. No central retroperitoneal or mesenteric lymphadenopathy is seen. Small and large bowel loops are normal caliber. There is extensive diverticulosis of the sigmoid but no evidence of acute diverticulitis. The bladder is unremarkable. No pelvic lymphadenopathy is seen. Bony structures are nonacute. IMPRESSION: 1. Stable CT abdomen and pelvis since exam from 02/14/2020. There is extensive uncomplicated diverticulosis and renal cyst. No abdominal or pelvic lymphadenopathy or evidence of metastatic disease is detected. Dictated by: Dictated on workstation # [id number]
--- NOTE | 2020-05-01 14:56 | Diagnostic Imaging Report ---
DATE: 05/01/2020 2:31 PM REASON FOR EXAM: Lung cancer. COMPARISON: 02/14/2020. TECHNIQUE: Tc-99m MDP 25.00 mCi IV FINDINGS: The entire skeleton was imaged in anterior and posterior views with the moving gamma camera. There is normal distribution of tracer throughout the imaged axial and appendicular skeleton. No abnormal focal area of increased or decreased tracer accumulation is identified. There is mild S-shaped curvature of the thoracolumbar spine and degenerative change in the lumbar spine and sacroiliac joints. Radiotracer activity in the left 2nd or 3rd toe is likely degenerative as well, and appears stable since the prior study. Physiologic uptake is seen within the kidneys and urinary bladder. No abnormal soft tissue uptake is seen. IMPRESSION: No abnormal radiotracer activity suggestive of osseous metastasis. Dictated by: Dictated on workstation # [id number]
== END ==
LOC: CARD 10:17
PROVIDERS: ATTEND Nurse Practitioner Adult Health
DX: Z51.11 Encounter for antineoplastic chemotherapy (principal); C34.2 Malignant neoplasm of middle lobe, bronchus or lung; K57.30 Diverticulosis of large intestine without perforation or abscess without bleeding; N28.1 Cyst of kidney, acquired
CPT/HCPCS: 71260; 74178; 78306; A9503

== ENCOUNTER 2020-05-07 08:29 | Outpatient (RCR) | payer MEDICARE, MEDICAID ==
[2020-03-17 09:30] LABS: BASOPHILS # (AUTO) 0.1 10^3/uL (0.0-0.1); BASOPHILS % (AUTO) 1 % (0-10); EOSINOPHILS # (AUTO) 0.1 10^3/uL (0.0-0.3); EOSINOPHILS % (AUTO) 2 % (0-10); HEMATOCRIT 33 % (35-52); HEMOGLOBIN 10.4 g/dL (11.5-16.0); LYMPHOCYTES # (AUTO) 1.5 10^3/uL (1.0-4.0); LYMPHOCYTES % (AUTO) 22 % (12-44); MEAN CORPUSCULAR HEMOGLOBIN 29 pg (25-34); MEAN CORPUSCULAR HGB CONC 32 g/dL (32-36); MEAN CORPUSCULAR VOLUME 91 fL (80-99); MEAN PLATELET VOLUME 9.9 fL (9.0-12.2); MONOCYTES # (AUTO) 0.3 10^3/uL (0.0-1.0); MONOCYTES % (AUTO) 4 % (0-12); NEUTROPHILS # (AUTO) 4.6 10^3/uL (1.8-7.8); NEUTROPHILS % (AUTO) 70 % (42-75); PLATELET COUNT 323 10^3/uL (130-400); WHITE BLOOD COUNT 6.6 10^3/uL (4.3-11.0)
[2020-03-17 09:46] LABS: BUN/CREATININE RATIO 19; CALCIUM 9.2 MG/DL (8.5-10.1); CARBON DIOXIDE 23 MMOL/L (21-32); CHLORIDE 104 MMOL/L (98-107); GFR ESTIMATED > 60; GLUCOSE 111 MG/DL (70-105); POTASSIUM 4.1 MMOL/L (3.6-5.0); SODIUM 136 MMOL/L (135-145)
[2020-03-24 10:32] LABS: BASOPHILS % (AUTO) 1 % (0-10); EOSINOPHILS # (AUTO) 0.1 10^3/uL (0.0-0.3); EOSINOPHILS % (AUTO) 4 % (0-10); HEMATOCRIT 33 % (35-52); HEMOGLOBIN 10.4 g/dL (11.5-16.0); LYMPHOCYTES # (AUTO) 1.6 10^3/uL (1.0-4.0); LYMPHOCYTES % (AUTO) 45 % (12-44); MEAN CORPUSCULAR HEMOGLOBIN 29 pg (25-34); MEAN CORPUSCULAR HGB CONC 31 g/dL (32-36); MEAN CORPUSCULAR VOLUME 93 fL (80-99); MEAN PLATELET VOLUME 10.1 fL (9.0-12.2); MONOCYTES # (AUTO) 0.3 10^3/uL (0.0-1.0); MONOCYTES % (AUTO) 9 % (0-12); NEUTROPHILS # (AUTO) 1.5 10^3/uL (1.8-7.8); NEUTROPHILS % (AUTO) 42 % (42-75); PLATELET COUNT 286 10^3/uL (130-400); WHITE BLOOD COUNT 3.6 10^3/uL (4.3-11.0)
[2020-03-24 10:49] LABS: BUN/CREATININE RATIO 16; CALCIUM 9.2 MG/DL (8.5-10.1); CARBON DIOXIDE 24 MMOL/L (21-32); CHLORIDE 105 MMOL/L (98-107); CREATININE SERUM 0.77 MG/DL (0.60-1.30); GFR ESTIMATED > 60; GLUCOSE 117 MG/DL (70-105); POTASSIUM 3.7 MMOL/L (3.6-5.0); SODIUM 139 MMOL/L (135-145)
[2020-03-31 11:04] LABS: BASOPHILS # (AUTO) 0.1 10^3/uL (0.0-0.1); BASOPHILS % (AUTO) 1 % (0-10); EOSINOPHILS # (AUTO) 0.1 10^3/uL (0.0-0.3); EOSINOPHILS % (AUTO) 1 % (0-10); HEMATOCRIT 33 % (35-52); HEMOGLOBIN 10.5 g/dL (11.5-16.0); LYMPHOCYTES # (AUTO) 1.8 10^3/uL (1.0-4.0); LYMPHOCYTES % (AUTO) 27 % (12-44); MEAN CORPUSCULAR HEMOGLOBIN 29 pg (25-34); MEAN CORPUSCULAR HGB CONC 31 g/dL (32-36); MEAN CORPUSCULAR VOLUME 92 fL (80-99); MEAN PLATELET VOLUME 9.8 fL (9.0-12.2); MONOCYTES # (AUTO) 0.8 10^3/uL (0.0-1.0); MONOCYTES % (AUTO) 12 % (0-12); NEUTROPHILS # (AUTO) 3.7 10^3/uL (1.8-7.8); NEUTROPHILS % (AUTO) 58 % (42-75); PLATELET COUNT 330 10^3/uL (130-400); WHITE BLOOD COUNT 6.4 10^3/uL (4.3-11.0)
[2020-03-31 11:35] LABS: ALANINE AMINOTRANSFERASE < 6 U/L (0-55); ALBUMIN 3.6 GM/DL (3.2-4.5); ALKALINE PHOSPHATASE 87 U/L (40-136); BILIRUBIN,TOTAL 0.2 MG/DL (0.1-1.0); BUN/CREATININE RATIO 14; CALCIUM 9.3 MG/DL (8.5-10.1); CARBON DIOXIDE 22 MMOL/L (21-32); CHLORIDE 107 MMOL/L (98-107); GFR ESTIMATED > 60; GLUCOSE 92 MG/DL (70-105); MAGNESIUM 1.9 MG/DL (1.6-2.4); POTASSIUM 4.2 MMOL/L (3.6-5.0); SODIUM 141 MMOL/L (135-145); TOTAL PROTEIN 6.2 GM/DL (6.4-8.2)
[2020-04-07 09:17] LABS: BASOPHILS % (AUTO) 1 % (0-10); EOSINOPHILS # (AUTO) 0.1 10^3/uL (0.0-0.3); EOSINOPHILS % (AUTO) 2 % (0-10); HEMATOCRIT 32 % (35-52); HEMOGLOBIN 9.9 g/dL (11.5-16.0); LYMPHOCYTES # (AUTO) 1.5 10^3/uL (1.0-4.0); LYMPHOCYTES % (AUTO) 27 % (12-44); MEAN CORPUSCULAR HEMOGLOBIN 29 pg (25-34); MEAN CORPUSCULAR HGB CONC 31 g/dL (32-36); MEAN CORPUSCULAR VOLUME 92 fL (80-99); MEAN PLATELET VOLUME 10.1 fL (9.0-12.2); MONOCYTES # (AUTO) 0.2 10^3/uL (0.0-1.0); MONOCYTES % (AUTO) 3 % (0-12); NEUTROPHILS # (AUTO) 3.7 10^3/uL (1.8-7.8); NEUTROPHILS % (AUTO) 67 % (42-75); PLATELET COUNT 258 10^3/uL (130-400); WHITE BLOOD COUNT 5.6 10^3/uL (4.3-11.0)
[2020-04-07 09:43] LABS: BUN/CREATININE RATIO 18; CARBON DIOXIDE 22 MMOL/L (21-32); CHLORIDE 105 MMOL/L (98-107); CREATININE SERUM 0.73 MG/DL (0.60-1.30); GFR ESTIMATED > 60; GLUCOSE 107 MG/DL (70-105); POTASSIUM 4.1 MMOL/L (3.6-5.0); SODIUM 138 MMOL/L (135-145)
[2020-05-01 10:19] LABS: BASOPHILS # (AUTO) 0.1 10^3/uL (0.0-0.1); BASOPHILS % (AUTO) 1 % (0-10); EOSINOPHILS # (AUTO) 0.2 10^3/uL (0.0-0.3); EOSINOPHILS % (AUTO) 2 % (0-10); HEMATOCRIT 39 % (35-52); HEMOGLOBIN 12.1 g/dL (11.5-16.0); LYMPHOCYTES # (AUTO) 1.8 10^3/uL (1.0-4.0); LYMPHOCYTES % (AUTO) 21 % (12-44); MEAN CORPUSCULAR HEMOGLOBIN 29 pg (25-34); MEAN CORPUSCULAR HGB CONC 31 g/dL (32-36); MEAN CORPUSCULAR VOLUME 92 fL (80-99); MEAN PLATELET VOLUME 9.6 fL (9.0-12.2); MONOCYTES # (AUTO) 0.6 10^3/uL (0.0-1.0); MONOCYTES % (AUTO) 7 % (0-12); NEUTROPHILS # (AUTO) 6.1 10^3/uL (1.8-7.8); NEUTROPHILS % (AUTO) 69 % (42-75); PLATELET COUNT 267 10^3/uL (130-400); WHITE BLOOD COUNT 8.9 10^3/uL (4.3-11.0)
[2020-05-01 10:32] LABS: BUN/CREATININE RATIO 17; CALCIUM 9.5 MG/DL (8.5-10.1); CARBON DIOXIDE 24 MMOL/L (21-32); CHLORIDE 106 MMOL/L (98-107); CREATININE SERUM 0.81 MG/DL (0.60-1.30); GFR ESTIMATED > 60; GLUCOSE 105 MG/DL (70-105); MAGNESIUM 1.8 MG/DL (1.6-2.4); POTASSIUM 4.2 MMOL/L (3.6-5.0); SODIUM 141 MMOL/L (135-145)
[~2020-05-07 08:29] MED LIST changes: -CATHETER FLUSH 10 ML SYR IV PRN; +FOSAPREPITANT (CANCER CENTER) 150 MG in NS (IVPB) CANCER CENTER ONLY 150 ML IV SCH; -HOLD METFORMIN - RECEIVED CONTRAST 20 ML VIAL IV SCH; -IOHEXOL 350 MG/ML 100 ML (OMNIPAQUE 350) VIAL IV ONE; -NS 100 ML (IVPB) BAG IV ONE; +NS IV 1000 ML (CANCER CTR) IV SCH; +PACLitaxel PROTEIN 130 MG in EMPTY IV BAG (PVC) CANCER CTR 1 EA IV SCH; +PEMBROLIZUMAB 200 MG in NS (IVPB) CANCER CENTER 50 ML IV SCH
[2020-05-07 08:56] LABS: BASOPHILS % (AUTO) 1 % (0-10); EOSINOPHILS # (AUTO) 0.2 10^3/uL (0.0-0.3); EOSINOPHILS % (AUTO) 3 % (0-10); HEMATOCRIT 36 % (35-52); HEMOGLOBIN 11.4 g/dL (11.5-16.0); LYMPHOCYTES # (AUTO) 1.5 10^3/uL (1.0-4.0); LYMPHOCYTES % (AUTO) 19 % (12-44); MEAN CORPUSCULAR HEMOGLOBIN 29 pg (25-34); MEAN CORPUSCULAR HGB CONC 32 g/dL (32-36); MEAN CORPUSCULAR VOLUME 91 fL (80-99); MEAN PLATELET VOLUME 9.7 fL (9.0-12.2); MONOCYTES # (AUTO) 0.7 10^3/uL (0.0-1.0); MONOCYTES % (AUTO) 8 % (0-12); NEUTROPHILS # (AUTO) 5.7 10^3/uL (1.8-7.8); NEUTROPHILS % (AUTO) 70 % (42-75); PLATELET COUNT 264 10^3/uL (130-400); WHITE BLOOD COUNT 8.2 10^3/uL (4.3-11.0)
[2020-05-07 09:20] LABS: ALANINE AMINOTRANSFERASE 9 U/L (0-55); ALBUMIN 3.8 GM/DL (3.2-4.5); ALKALINE PHOSPHATASE 93 U/L (40-136); BILIRUBIN,TOTAL 0.3 MG/DL (0.1-1.0); BUN/CREATININE RATIO 17; CALCIUM 9.5 MG/DL (8.5-10.1); CARBON DIOXIDE 23 MMOL/L (21-32); CHLORIDE 105 MMOL/L (98-107); CREATININE SERUM 0.77 MG/DL (0.60-1.30); GFR ESTIMATED > 60; GLUCOSE 121 MG/DL (70-105); MAGNESIUM 1.7 MG/DL (1.6-2.4); SODIUM 138 MMOL/L (135-145); TOTAL PROTEIN 6.6 GM/DL (6.4-8.2)
[2020-05-27] MEDS ORDERED: OMEG-160 PO (09:41)
[2020-05-27] MEDS ORDERED: POTA10TA36 PO (09:41)
[2020-05-27] MEDS ORDERED: MAGN400T7 PO (09:41)
== END 2020-06-08 | disposition home or self-care (01) ==
LOC: ONC 08:29
PROVIDERS: ATTEND Internal Medicine Hematology & Oncology
DX: C34.2 Malignant neoplasm of middle lobe, bronchus or lung (principal); C79.51 Secondary malignant neoplasm of bone; E78.00 Pure hypercholesterolemia, unspecified; K57.92 Diverticulitis of intestine, part unspecified, without perforation or abscess without bleeding; R03.0 Elevated blood-pressure reading, without diagnosis of hypertension; F17.200 Nicotine dependence, unspecified, uncomplicated; Z90.13 Acquired absence of bilateral breasts and nipples
CPT/HCPCS: 96367; 96375; 96413; 96417; G0463; 36591; 80048; 80053; 83735; 84443; 85025

== ENCOUNTER → 2020-05-27 | Outpatient (CLI) | payer MEDICARE, MEDICAID ==
[~2020-05-27] VITALS: Ht 167 cm; Wt 56.0 kg
[2020-05-27] VITALS (10 sets, daily range): BP systolic 114–135; BP diastolic 53–75
[~2020-05-27] MED LIST changes: -FOSAPREPITANT (CANCER CENTER) 150 MG in NS (IVPB) CANCER CENTER ONLY 150 ML IV SCH; +HYDROcodone/APAP 5 MG/325 MG (LORTAB) TAB PO PRN; +LIDOCAINE 1% INJ 20 ML 20 ML VIAL INJ ONE; +MAGN400T7 PO; +MIDAZOLAM 2 MG/2 ML (VERSED) VIAL IVP ONE; -NS IV 1000 ML (CANCER CTR) IV SCH; +NS IV 1000 ML 1,000 ML IV STA; +OMEG-160 PO; -PACLitaxel PROTEIN 130 MG in EMPTY IV BAG (PVC) CANCER CTR 1 EA IV SCH; -PEMBROLIZUMAB 200 MG in NS (IVPB) CANCER CENTER 50 ML IV SCH; +POTA10TA36 PO; +fentaNYL INJ 100 MCG/2 ML AMP IVP ONE
[2020-05-27 09:08] LABS: HEMOGLOBIN 11.7 g/dL (11.5-16.0); MEAN PLATELET VOLUME 9.8 fL (9.0-12.2); WHITE BLOOD COUNT 8.3 10^3/uL (4.3-11.0)
[2020-05-27 09:21] LABS: PROTHROMBIN TIME PATIENT 13.7 SEC (12.2-14.7)
--- NOTE | 2020-05-27 11:34 | Pre-Op Note & Conscious Sedat ---
Pre-Operative Progress Note H&P Reviewed The H&P was reviewed, patient examined and no changes noted. Date H&P Reviewed: May 27, 2020 Time H&P Reviewed: 09:00 Pre-Op Diagnosis: lung mass Conscious Sedation Pre-Proced Time 09:00 ASA Score 2 For ASA 3 and 4: Consider anesthesia and medical clearance. Also, for patients with a history of failed moderate sedation consider anesthesia. Airway Lungs Heart ASA score ASA 1: a normal healthy patient ASA 2: a patient with a mild systemic disease (mid diabetes, controlled hypertension, obesity ASA 3: a patient with a severe systemic disease that limits activity (angina, COPD, prior Myocardial infarction) ASA 4: a patient with an incapacitating disease that is a constant threat to life (CHF, renal failure) ASA 5: a moribund patient not expected to survive 24 hrs. (ruptured aneurysm) ASA 6: a declared brain- patient whose organs are being harvested. For emergent operations, add the letter E after the classification Mallampati Classification Grade 2 Sedation Plan Analgesia, Amnesia, Plan communicated to team members, Discussed options with patient/fam, Discussed risks with patient/fam The patient is an appropriate candidate to undergo the planned procedure, sedation, and anesthesia. The patient immediately re-assessed prior to indication. ASHISH DUNNE MD May 27, 2020 11:34
--- NOTE | 2020-05-27 12:26 | Diagnostic Imaging Report ---
INDICATION: Right lung mass. Patient presents for CT-guided biopsy. TECHNIQUE: All CT scans use one or more of the following dose optimizing techniques: automated exposure control, MA and/or KvP adjustment based on patient size and exam type or iterative reconstruction. DETAILS OF THE PROCEDURE: The patient was brought to the CT suite and placed on the table in the supine position. Axial imaging through the chest was performed to evaluate for an appropriate entry site. The procedure was performed utilizing conscious sedation with radiology nursing and constant patient monitoring. The patient was given a total of 50 mcg of fentanyl intravenously and 1 mg of Versed intravenously. The total procedure time was 7 minutes. The right chest was prepped and draped in the usual sterile fashion. A small amount of 1% lidocaine was utilized for local anesthesia. A 20-gauge coaxial Temno needle was advanced and placed with its tip in the mass in the right middle lobe. Four core biopsies were obtained. A blood patch was injected during needle removal. Hemostasis was obtained using manual compression. Post procedure images demonstrate a small right basilar pneumothorax. This will be followed with a chest radiograph in 2 hours. The patient tolerated the procedure well and left the Department in stable condition. IMPRESSION: Successful CT-guided core biopsy of the right middle lobe lung mass utilizing conscious sedation. Pathology results are currently pending. Dictated by: Dictated on workstation # [id number]
--- NOTE | 2020-05-27 12:32 | Diagnostic Imaging Report ---
INDICATION: Right lung mass, status post biopsy. TIME OF EXAM: 12:15 PM. COMPARISON: 11/15/2019. FINDINGS: An expiratory portable upright radiograph of the chest was obtained. There is a small approximately 10% right apical pneumothorax, status post right lung biopsy. Post biopsy changes in the right base are noted. The left lung is clear. There is a left chest wall port with the tip overlying the SVC. IMPRESSION: Small right apical pneumothorax, status post right lung biopsy. Dictated by: Dictated on workstation # [id number]
== END ==
LOC: SDC 08:33
PROVIDERS: ATTEND Internal Medicine Hematology & Oncology
DX: C34.2 Malignant neoplasm of middle lobe, bronchus or lung (principal); J93.83 Other pneumothorax; Z98.890 Other specified postprocedural states
CPT/HCPCS: 36415; 71045; 77012; 85027; 85610; 85730; 99156

== ENCOUNTER 2020-09-09 09:37 | Outpatient (RCR) | payer MEDICARE, MEDICAID ==
[2020-06-30 11:05] LABS: BILIRUBIN,URINE NEGATIVE (NEGATIVE); CLARITY,URINE CLEAR; COLOR,URINE YELLOW; GLUCOSE, URINE (UA) NEGATIVE (NEGATIVE); KETONES,URINE NEGATIVE (NEGATIVE); LEUKOCYTE ESTERASE ,URINE TRACE (NEGATIVE); NITRITE,URINE NEGATIVE (NEGATIVE); PROTEIN,URINE NEGATIVE (NEGATIVE)
[2020-06-30 11:12] LABS: BACTERIA,URINE FEW /HPF; RBC,URINE RARE /HPF
[2020-06-30 11:54] LABS: BASOPHILS # (AUTO) 0.1 10^3/uL (0.0-0.1); BASOPHILS % (AUTO) 1 % (0-10); EOSINOPHILS # (AUTO) 0.3 10^3/uL (0.0-0.3); EOSINOPHILS % (AUTO) 3 % (0-10); HEMATOCRIT 41 % (35-52); HEMOGLOBIN 12.8 g/dL (11.5-16.0); LYMPHOCYTES # (AUTO) 1.9 10^3/uL (1.0-4.0); LYMPHOCYTES % (AUTO) 21 % (12-44); MEAN CORPUSCULAR HEMOGLOBIN 28 pg (25-34); MEAN CORPUSCULAR HGB CONC 31 g/dL (32-36); MEAN CORPUSCULAR VOLUME 88 fL (80-99); MONOCYTES # (AUTO) 0.6 10^3/uL (0.0-1.0); MONOCYTES % (AUTO) 7 % (0-12); NEUTROPHILS # (AUTO) 6.4 10^3/uL (1.8-7.8); NEUTROPHILS % (AUTO) 69 % (42-75); PLATELET COUNT 307 10^3/uL (130-400); WHITE BLOOD COUNT 9.3 10^3/uL (4.3-11.0)
[2020-06-30 12:25] LABS: ALANINE AMINOTRANSFERASE 7 U/L (0-55); ALKALINE PHOSPHATASE 103 U/L (40-136); BILIRUBIN,TOTAL 0.4 MG/DL (0.1-1.0); BUN/CREATININE RATIO 17; CARBON DIOXIDE 27 MMOL/L (21-32); CHLORIDE 105 MMOL/L (98-107); CREATININE SERUM 0.75 MG/DL (0.60-1.30); GFR ESTIMATED > 60; GLUCOSE 102 MG/DL (70-105); POTASSIUM 4.1 MMOL/L (3.6-5.0); SODIUM 141 MMOL/L (135-145); TOTAL PROTEIN 7.1 GM/DL (6.4-8.2)
[2020-07-14 09:55] LABS: BASOPHILS # (AUTO) 0.1 10^3/uL (0.0-0.1); BASOPHILS % (AUTO) 1 % (0-10); EOSINOPHILS # (AUTO) 0.2 10^3/uL (0.0-0.3); EOSINOPHILS % (AUTO) 2 % (0-10); HEMATOCRIT 40 % (35-52); HEMOGLOBIN 12.4 g/dL (11.5-16.0); LYMPHOCYTES # (AUTO) 1.7 10^3/uL (1.0-4.0); LYMPHOCYTES % (AUTO) 19 % (12-44); MEAN CORPUSCULAR HEMOGLOBIN 28 pg (25-34); MEAN CORPUSCULAR HGB CONC 31 g/dL (32-36); MEAN CORPUSCULAR VOLUME 90 fL (80-99); MEAN PLATELET VOLUME 9.5 fL (9.0-12.2); MONOCYTES # (AUTO) 0.6 10^3/uL (0.0-1.0); MONOCYTES % (AUTO) 7 % (0-12); NEUTROPHILS # (AUTO) 6.4 10^3/uL (1.8-7.8); NEUTROPHILS % (AUTO) 71 % (42-75); PLATELET COUNT 310 10^3/uL (130-400); WHITE BLOOD COUNT 8.9 10^3/uL (4.3-11.0)
[2020-07-14 10:12] LABS: ALANINE AMINOTRANSFERASE 11 U/L (0-55); ALBUMIN 3.9 GM/DL (3.2-4.5); ALKALINE PHOSPHATASE 101 U/L (40-136); BILIRUBIN,TOTAL 0.3 MG/DL (0.1-1.0); BUN/CREATININE RATIO 16; CALCIUM 9.2 MG/DL (8.5-10.1); CARBON DIOXIDE 26 MMOL/L (21-32); CHLORIDE 103 MMOL/L (98-107); GFR ESTIMATED > 60; GLUCOSE 123 MG/DL (70-105); SODIUM 137 MMOL/L (135-145); TOTAL PROTEIN 6.8 GM/DL (6.4-8.2)
[2020-07-28 10:00] LABS: BASOPHILS # (AUTO) 0.1 10^3/uL (0.0-0.1); BASOPHILS % (AUTO) 1 % (0-10); EOSINOPHILS # (AUTO) 0.3 10^3/uL (0.0-0.3); EOSINOPHILS % (AUTO) 3 % (0-10); HEMATOCRIT 41 % (35-52); HEMOGLOBIN 12.7 g/dL (11.5-16.0); LYMPHOCYTES # (AUTO) 1.8 10^3/uL (1.0-4.0); LYMPHOCYTES % (AUTO) 18 % (12-44); MEAN CORPUSCULAR HEMOGLOBIN 27 pg (25-34); MEAN CORPUSCULAR HGB CONC 31 g/dL (32-36); MEAN CORPUSCULAR VOLUME 88 fL (80-99); MEAN PLATELET VOLUME 9.7 fL (9.0-12.2); MONOCYTES # (AUTO) 0.7 10^3/uL (0.0-1.0); MONOCYTES % (AUTO) 7 % (0-12); NEUTROPHILS # (AUTO) 6.9 10^3/uL (1.8-7.8); NEUTROPHILS % (AUTO) 70 % (42-75); PLATELET COUNT 317 10^3/uL (130-400); WHITE BLOOD COUNT 9.8 10^3/uL (4.3-11.0)
[2020-07-28 10:22] LABS: ALANINE AMINOTRANSFERASE 14 U/L (0-55); ALKALINE PHOSPHATASE 108 U/L (40-136); BILIRUBIN,TOTAL 0.4 MG/DL (0.1-1.0); BUN/CREATININE RATIO 19; CALCIUM 9.3 MG/DL (8.5-10.1); CARBON DIOXIDE 29 MMOL/L (21-32); CHLORIDE 104 MMOL/L (98-107); CREATININE SERUM 0.84 MG/DL (0.60-1.30); GFR ESTIMATED > 60; GLUCOSE 109 MG/DL (70-105); POTASSIUM 4.2 MMOL/L (3.6-5.0); SODIUM 139 MMOL/L (135-145)
[2020-08-11 10:21] LABS: BASOPHILS # (AUTO) 0.1 10^3/uL (0.0-0.1); BASOPHILS % (AUTO) 1 % (0-10); EOSINOPHILS # (AUTO) 0.3 10^3/uL (0.0-0.3); EOSINOPHILS % (AUTO) 3 % (0-10); HEMATOCRIT 40 % (35-52); HEMOGLOBIN 12.4 g/dL (11.5-16.0); LYMPHOCYTES # (AUTO) 1.6 X 10^3 (1.0-4.0); LYMPHOCYTES % (AUTO) 18 % (12-44); MEAN CORPUSCULAR HEMOGLOBIN 27 pg (25-34); MEAN CORPUSCULAR HGB CONC 31 g/dL (32-36); MEAN CORPUSCULAR VOLUME 87 fL (80-99); MONOCYTES # (AUTO) 0.6 X 10^3 (0.0-1.0); MONOCYTES % (AUTO) 7 % (0-12); NEUTROPHILS # (AUTO) 6.5 X 10^3 (1.8-7.8); NEUTROPHILS % (AUTO) 71 % (42-75); PLATELET COUNT 300 10^3/uL (130-400); WHITE BLOOD COUNT 9.1 10^3/uL (4.3-11.0)
[2020-08-11 10:40] LABS: ALANINE AMINOTRANSFERASE 14 U/L (0-55); ALBUMIN 3.9 GM/DL (3.2-4.5); ALKALINE PHOSPHATASE 105 U/L (40-136); BILIRUBIN,TOTAL 0.4 MG/DL (0.1-1.0); BUN/CREATININE RATIO 13; CALCIUM 9.6 MG/DL (8.5-10.1); CARBON DIOXIDE 26 MMOL/L (21-32); CHLORIDE 103 MMOL/L (98-107); CREATININE SERUM 0.84 MG/DL (0.60-1.30); GFR ESTIMATED > 60; GLUCOSE 116 MG/DL (70-105); POTASSIUM 3.9 MMOL/L (3.6-5.0); SODIUM 138 MMOL/L (135-145)
[~2020-09-09] VITALS: Ht 162.6 cm; Wt 55.3 kg
[~2020-09-09 09:37] MED LIST changes: -HYDROcodone/APAP 5 MG/325 MG (LORTAB) TAB PO PRN; +IPILIMUMAB IV SCH; -LIDOCAINE 1% INJ 20 ML 20 ML VIAL INJ ONE; -MIDAZOLAM 2 MG/2 ML (VERSED) VIAL IVP ONE; +NIVOLUMAB IV SCH; +NS IV 1000 ML (CANCER CTR) IV SCH; -NS IV 1000 ML 1,000 ML IV STA; +NS IV SCH; -fentaNYL INJ 100 MCG/2 ML AMP IVP ONE
== END 2020-09-15 | disposition home or self-care (01) ==
LOC: ONC 09:37
PROVIDERS: ATTEND Internal Medicine Hematology & Oncology
DX: C34.2 Malignant neoplasm of middle lobe, bronchus or lung (principal); C79.51 Secondary malignant neoplasm of bone; K57.92 Diverticulitis of intestine, part unspecified, without perforation or abscess without bleeding; J44.9 Chronic obstructive pulmonary disease, unspecified; I10 Essential (primary) hypertension; E78.2 Mixed hyperlipidemia; Z72.0 Tobacco use; Z92.3 Personal history of irradiation; Z90.13 Acquired absence of bilateral breasts and nipples; Z79.82 Long term (current) use of aspirin; Z79.899 Other long term (current) drug therapy; Z79.02 Long term (current) use of antithrombotics/antiplatelets
CPT/HCPCS: 36591; 80053; 81000; 84443; 85025; 87088; 96413; 96417; 99213

== ENCOUNTER 2020-12-16 10:47 | Outpatient (RCR) | payer MEDICARE, MEDICAID ==
[2020-09-22 09:31] LABS: BASOPHILS # (AUTO) 0.1 10^3/uL (0.0-0.1); BASOPHILS % (AUTO) 1 % (0-10); EOSINOPHILS # (AUTO) 0.3 10^3/uL (0.0-0.3); EOSINOPHILS % (AUTO) 3 % (0-10); HEMATOCRIT 37 % (35-52); HEMOGLOBIN 11.5 g/dL (11.5-16.0); LYMPHOCYTES # (AUTO) 1.7 10^3/uL (1.0-4.0); LYMPHOCYTES % (AUTO) 15 % (12-44); MEAN CORPUSCULAR HEMOGLOBIN 27 pg (25-34); MEAN CORPUSCULAR HGB CONC 31 g/dL (32-36); MEAN CORPUSCULAR VOLUME 86 fL (80-99); MEAN PLATELET VOLUME 9.4 fL (9.0-12.2); MONOCYTES # (AUTO) 0.8 10^3/uL (0.0-1.0); MONOCYTES % (AUTO) 7 % (0-12); NEUTROPHILS # (AUTO) 8.3 10^3/uL (1.8-7.8); NEUTROPHILS % (AUTO) 74 % (42-75); PLATELET COUNT 378 10^3/uL (130-400); WHITE BLOOD COUNT 11.2 10^3/uL (4.3-11.0)
[2020-09-22 09:49] LABS: ALANINE AMINOTRANSFERASE 12 U/L (0-55); ALBUMIN 3.6 GM/DL (3.2-4.5); ALKALINE PHOSPHATASE 99 U/L (40-136); BILIRUBIN,TOTAL 0.4 MG/DL (0.1-1.0); BUN/CREATININE RATIO 14; CALCIUM 9.6 MG/DL (8.5-10.1); CARBON DIOXIDE 26 MMOL/L (21-32); CHLORIDE 103 MMOL/L (98-107); CREATININE SERUM 0.88 MG/DL (0.60-1.30); GFR ESTIMATED > 60; GLUCOSE 103 MG/DL (70-105); SODIUM 139 MMOL/L (135-145); TOTAL PROTEIN 6.8 GM/DL (6.4-8.2)
[2020-11-03 10:05] LABS: BASOPHILS # (AUTO) 0.1 10^3/uL (0.0-0.1); BASOPHILS % (AUTO) 1 % (0-10); EOSINOPHILS # (AUTO) 0.4 10^3/uL (0.0-0.3); EOSINOPHILS % (AUTO) 4 % (0-10); HEMATOCRIT 35 % (35-52); HEMOGLOBIN 11.1 g/dL (11.5-16.0); LYMPHOCYTES # (AUTO) 1.6 10^3/uL (1.0-4.0); LYMPHOCYTES % (AUTO) 14 % (12-44); MEAN CORPUSCULAR HEMOGLOBIN 27 pg (25-34); MEAN CORPUSCULAR HGB CONC 31 g/dL (32-36); MEAN CORPUSCULAR VOLUME 85 fL (80-99); MEAN PLATELET VOLUME 9.3 fL (9.0-12.2); MONOCYTES # (AUTO) 0.8 10^3/uL (0.0-1.0); MONOCYTES % (AUTO) 7 % (0-12); NEUTROPHILS # (AUTO) 8.1 10^3/uL (1.8-7.8); NEUTROPHILS % (AUTO) 74 % (42-75); PLATELET COUNT 360 10^3/uL (130-400); WHITE BLOOD COUNT 10.9 10^3/uL (4.3-11.0)
[2020-11-03 11:22] LABS: BILIRUBIN,URINE NEGATIVE (NEGATIVE); CLARITY,URINE CLOUDY; COLOR,URINE YELLOW; GLUCOSE, URINE (UA) NEGATIVE (NEGATIVE); KETONES,URINE NEGATIVE (NEGATIVE); LEUKOCYTE ESTERASE ,URINE 3+ (NEGATIVE); NITRITE,URINE NEGATIVE (NEGATIVE); PROTEIN,URINE TRACE (NEGATIVE)
[2020-11-03 11:33] LABS: ALBUMIN 3.6 GM/DL (3.2-4.5); BILIRUBIN,TOTAL 0.3 MG/DL (0.1-1.0); CALCIUM 9.8 MG/DL (8.5-10.1); CREATININE SERUM 0.8 MG/DL (0.60-1.30); TOTAL PROTEIN 6.9 GM/DL (6.4-8.2)
[2020-11-03 11:37] LABS: BACTERIA,URINE FEW /HPF; RBC,URINE RARE /HPF; SQUAMOUS EPITHELIAL CELL,UR RARE /HPF; WBC,URINE >100 /HPF
[2020-12-08 10:49] LABS: CALCIUM 9.4 MG/DL (8.5-10.1); CREATININE SERUM 0.77 MG/DL (0.60-1.30); POTASSIUM 3.7 MMOL/L (3.6-5.0)
[~2020-12-16 10:47] MED LIST changes: -BARIUM SUSPENSION 2.1% (VANILLA SILQ) 450 ML PO ONE; -CATHETER FLUSH 10 ML SYR IV PRN; -HOLD METFORMIN - RECEIVED CONTRAST 20 ML VIAL IV SCH; -IOHEXOL 350 MG/ML 100 ML (OMNIPAQUE 350) VIAL IV ONE; +IPILIMUMAB IV SCH; +NIVOLUMAB IV SCH; -NS 100 ML (IVPB) BAG IV ONE; +NS IV 1000 ML (CANCER CTR) IV SCH; +NS IV SCH
[2020-12-16 11:33] LABS: BASOPHILS # (AUTO) 0.1 10^3/uL (0.0-0.1); BASOPHILS % (AUTO) 1 % (0-10); EOSINOPHILS # (AUTO) 0.2 10^3/uL (0.0-0.3); EOSINOPHILS % (AUTO) 2 % (0-10); HEMATOCRIT 38 % (35-52); HEMOGLOBIN 11.6 g/dL (11.5-16.0); LYMPHOCYTES # (AUTO) 1.7 10^3/uL (1.0-4.0); LYMPHOCYTES % (AUTO) 17 % (12-44); MEAN CORPUSCULAR HEMOGLOBIN 26 pg (25-34); MEAN CORPUSCULAR HGB CONC 31 g/dL (32-36); MEAN CORPUSCULAR VOLUME 84 fL (80-99); MEAN PLATELET VOLUME 9.5 fL (9.0-12.2); MONOCYTES # (AUTO) 0.6 10^3/uL (0.0-1.0); MONOCYTES % (AUTO) 6 % (0-12); NEUTROPHILS # (AUTO) 7.5 10^3/uL (1.8-7.8); NEUTROPHILS % (AUTO) 74 % (42-75); PLATELET COUNT 412 10^3/uL (130-400); WHITE BLOOD COUNT 10.2 10^3/uL (4.3-11.0)
[2020-12-16 12:51] LABS: ALBUMIN 3.5 GM/DL (3.2-4.5); BILIRUBIN,TOTAL 0.3 MG/DL (0.1-1.0); CALCIUM 9.5 MG/DL (8.5-10.1); CREATININE SERUM 0.83 MG/DL (0.60-1.30); POTASSIUM 4.1 MMOL/L (3.6-5.0); TOTAL PROTEIN 6.7 GM/DL (6.4-8.2)
== END 2020-12-21 | disposition home or self-care (01) ==
LOC: ONC 10:47
PROVIDERS: ATTEND Internal Medicine Hematology & Oncology
DX: Z51.11 Encounter for antineoplastic chemotherapy (principal); C34.2 Malignant neoplasm of middle lobe, bronchus or lung; C79.51 Secondary malignant neoplasm of bone; K57.92 Diverticulitis of intestine, part unspecified, without perforation or abscess without bleeding; J44.9 Chronic obstructive pulmonary disease, unspecified; I10 Essential (primary) hypertension; E78.2 Mixed hyperlipidemia; Z72.0 Tobacco use; Z92.3 Personal history of irradiation; Z79.82 Long term (current) use of aspirin; Z79.899 Other long term (current) drug therapy; Z79.02 Long term (current) use of antithrombotics/antiplatelets; Z98.890 Other specified postprocedural states; Z92.21 Personal history of antineoplastic chemotherapy
CPT/HCPCS: 80053; 84443; 85025; 96413; 96417; G0463; 36591; 80048; 81000; 87077; 87088; 96415

== ENCOUNTER → 2020-12-16 | Outpatient (CLI) | payer MEDICARE, MEDICAID ==
[~2020-12-16] MED LIST changes: +BARIUM SUSPENSION 2.1% (VANILLA SILQ) 450 ML PO ONE; +CATHETER FLUSH 10 ML SYR IV PRN; +HOLD METFORMIN - RECEIVED CONTRAST 20 ML VIAL IV SCH; +IOHEXOL 350 MG/ML 100 ML (OMNIPAQUE 350) VIAL IV ONE; -IPILIMUMAB IV SCH; -NIVOLUMAB IV SCH; +NS 100 ML (IVPB) BAG IV ONE; -NS IV 1000 ML (CANCER CTR) IV SCH; -NS IV SCH
[2020-12-16] MEDS: CATHETER FLUSH 10 ML SYR IV PRN ×2 (11:40→12:35)
--- NOTE | 2020-12-16 15:44 | Diagnostic Imaging Report ---
PROCEDURE: CT chest with contrast, CT abdomen and pelvis with and without contrast. TECHNIQUE: Pre and post intravenous contrast axial imaging of the abdomen and pelvis and post contrast axial imaging of the chest were performed. Auto Exposure Controls were utilized during the CT exam to meet ALARA standards for radiation dose reduction. INDICATION: 85-year-old female, history of breast carcinoma and right lung carcinoma. Currently in treatment for lung cancer. CORRELATION STUDY: CT chest, abdomen and pelvis 05/01/2020 FINDINGS: CT CHEST: Left subclavian Lzdqgx-a-Zlto catheter is present with tip within the SVC. Heart size is within normal limits with prominent coronary artery calcification. Calcification of the thoracic aorta, otherwise relatively unremarkable in its contour. Bilateral mastectomies. Visualized portion of thyroid gland are small. Mildly prominent mediastinal lymph nodes are present. Precarinal lymph node currently 15 x 10 mm, Previously 11 x 10 mm. Advanced emphysematous change about the lung parenchyma. Small right pleural effusion layering dependently has developed. There is increasing in density in consolidation of the right middle lobe. Some low-attenuation is present suggestive of perhaps necrotic changes. An aggregate consolidated masslike density measuring approximately 6.0 x 5.3 cm, previously 4.8 x 2.6 cm. Right middle lobe is nearly collapsed. Minimal peripheral consolidation in the right lower lobe. Left lung remains clear. Osseous structures demonstrate accentuated thoracic kyphosis with rightward curvature. No acute bony abnormality. No amelia lytic or sclerotic change. CT ABDOMEN and PELVIS: Residual low attenuating area in the left hepatic lobe adjacent to the falciform ligament appears more prominent from prior. Liver is otherwise unremarkable. Small gallstones. No bile duct dilatation. Spleen, pancreas and adrenal glands are unchanged. There is moderate wall calcification of the aorta and iliac vessels without significant stenosis. Likely least moderate to marked severity stenosis of the common iliac arteries. A few small but nonpathologic enlarged aortocaval lymph nodes are present. Probable small bilateral renal cortical cysts. No obstructive uropathy. Gastrointestinal tract demonstrates no obstruction or inflammation. High density contrast throughout the gastrointestinal tract. Extensive colonic diverticulosis without diverticulitis. Question a few segments of wall thickening in small bowel left lower quadrant. Urinary bladder unremarkable. Uterus is absent. Mildly advanced degenerative changes lumbar spine. IMPRESSION: CT CHEST: 1. Interval increase in size of a somewhat necrotic appearing right middle lobe mass. Somewhat indeterminate what is actually mass versus consolidated lung but overall has adversely increased. 2. Small but slightly increase in size of a precarinal lymph node. 3. Developed small right pleural effusion. CT ABDOMEN and PELVIS: 1. Increase in size low attenuating lesion left hepatic lobe. May very well reflect fatty infiltration. However, does appear to be perhaps slightly more prominent from prior. Remainder liver is otherwise unremarkable and is otherwise there are no findings to suggest abdominal pelvic metastatic disease. Dictated by: Dictated on workstation # [id number]
--- NOTE | 2020-12-16 16:53 | Diagnostic Imaging Report ---
INDICATION: Squamous cell carcinoma of the right lung. TECHNIQUE: Patient was administered 26.7 mCi technetium 99m MDP intravenously and whole-body imaging was performed after 3 hour delay. COMPARISON: Correlation is made with prior whole body bone scan from 05/01/2020. FINDINGS: There is normal uptake of activity by the axial and appendicular skeleton. There is uptake by the kidneys with excretion into the urinary bladder. No suspicious foci of tracer uptake are identified to suggest osseous metastatic disease. IMPRESSION: No scintigraphic evidence of osseous metastatic disease. Dictated by: Dictated on workstation # [id number]
== END ==
LOC: CARD 12:00
PROVIDERS: ATTEND Nurse Practitioner Adult Health
DX: Z51.11 Encounter for antineoplastic chemotherapy (principal); C34.2 Malignant neoplasm of middle lobe, bronchus or lung; Z85.3 Personal history of malignant neoplasm of breast
CPT/HCPCS: 71260; 74178; 78306; A9503

== ENCOUNTER 2021-01-20 08:48 | Outpatient (RCR) | payer MEDICARE, MEDICAID ==
[~2021-01-20 08:48] MED LIST changes: -ALPR0.254 PO; -CLOP75TA28 PO; +IPILIMUMAB IV SCH; -LEVO88TA54 PO; +NIVOLUMAB IV SCH; +NS IV 1000 ML (CANCER CTR) IV SCH; +NS IV SCH
[2021-01-20 09:34] LABS: BASOPHILS # (AUTO) 0.1 10^3/uL (0.0-0.1); BASOPHILS % (AUTO) 1 % (0-10); EOSINOPHILS # (AUTO) 0.3 10^3/uL (0.0-0.3); EOSINOPHILS % (AUTO) 2 % (0-10); HEMATOCRIT 35 % (35-52); LYMPHOCYTES # (AUTO) 1.4 10^3/uL (1.0-4.0); LYMPHOCYTES % (AUTO) 11 % (12-44); MEAN CORPUSCULAR HEMOGLOBIN 26 pg (25-34); MEAN CORPUSCULAR HGB CONC 31 g/dL (32-36); MEAN CORPUSCULAR VOLUME 83 fL (80-99); MEAN PLATELET VOLUME 9.2 fL (9.0-12.2); MONOCYTES # (AUTO) 0.8 10^3/uL (0.0-1.0); MONOCYTES % (AUTO) 7 % (0-12); NEUTROPHILS # (AUTO) 9.7 10^3/uL (1.8-7.8); NEUTROPHILS % (AUTO) 79 % (42-75); PLATELET COUNT 391 10^3/uL (130-400); WHITE BLOOD COUNT 12.4 10^3/uL (4.3-11.0)
[2021-01-20 10:12] LABS: ALANINE AMINOTRANSFERASE < 6 U/L (0-55); ALBUMIN 3.4 GM/DL (3.2-4.5); ALKALINE PHOSPHATASE 84 U/L (40-136); BILIRUBIN,TOTAL 0.4 MG/DL (0.1-1.0); BUN/CREATININE RATIO 14; CALCIUM 9.4 MG/DL (8.5-10.1); CARBON DIOXIDE 24 MMOL/L (21-32); CHLORIDE 101 MMOL/L (98-107); CREATININE SERUM 0.72 MG/DL (0.60-1.30); GFR ESTIMATED 77; GLUCOSE 108 MG/DL (70-105); SODIUM 137 MMOL/L (135-145); TOTAL PROTEIN 6.5 GM/DL (6.4-8.2)
== END 2021-03-06 | disposition home or self-care (01) ==
LOC: ONC 08:48
PROVIDERS: ATTEND Internal Medicine Hematology & Oncology
DX: C34.2 Malignant neoplasm of middle lobe, bronchus or lung (principal); C79.51 Secondary malignant neoplasm of bone; J44.9 Chronic obstructive pulmonary disease, unspecified; I10 Essential (primary) hypertension; E78.2 Mixed hyperlipidemia; Z72.0 Tobacco use; Z92.3 Personal history of irradiation; Z79.82 Long term (current) use of aspirin; Z79.899 Other long term (current) drug therapy; Z79.02 Long term (current) use of antithrombotics/antiplatelets; Z98.890 Other specified postprocedural states
CPT/HCPCS: 36591; 80053; 84443; 85025; 99213

== ENCOUNTER → 2021-01-20 | Outpatient (CLI) | payer MEDICARE, MEDICAID ==
[~2021-01-20] MED LIST changes: +ALPR0.254 PO; +CLOP75TA28 PO; -IPILIMUMAB IV SCH; +LEVO88TA54 PO; -NIVOLUMAB IV SCH; -NS IV 1000 ML (CANCER CTR) IV SCH; -NS IV SCH; -POTA10TA36 PO; +POTA10TA37 PO
== END ==
LOC: LAB 08:00
PROVIDERS: ATTEND Family Medicine
DX: R94.6 Abnormal results of thyroid function studies (principal)
CPT/HCPCS: 36415; 84439; 84480; 86376; 86800

== ENCOUNTER → 2021-03-10 | Outpatient (CLI) | payer MEDICARE ==
[~2021-03-10] MED LIST changes: +CATHETER FLUSH 10 ML SYR IV PRN; +HOLD METFORMIN - RECEIVED CONTRAST 20 ML VIAL IV SCH; +IOHEXOL 350 MG/ML 100 ML (OMNIPAQUE 350) VIAL IV ONE; -IPILIMUMAB IV SCH; -NIVOLUMAB IV SCH; +NS 100 ML (IVPB) BAG IV ONE; -NS IV 1000 ML (CANCER CTR) IV SCH; -NS IV SCH
--- NOTE | 2021-03-10 13:40 | Diagnostic Imaging Report ---
PROCEDURE: CT chest with contrast, CT abdomen and pelvis with and without contrast. TECHNIQUE: Pre and post intravenous contrast axial imaging of the abdomen and pelvis and post contrast axial imaging of the chest were performed. Auto Exposure Controls were utilized during the CT exam to meet ALARA standards for radiation dose reduction. INDICATION: Multiple myeloma. COMPARISON: 12/16/2020. FINDINGS: CT CHEST: The complex cystic and solid mass in the right middle lobe is increased in size, now measuring 7.1 x 6.7 cm (previously 6.0 x 5.3 cm). Bronchial thickening with subpleural linear opacities in the right lower lobe have not changed. Small right pleural effusion is increased in size. No new left-sided pulmonary nodule. Moderate centrilobular emphysema is unchanged. No supraclavicular lymphadenopathy has developed. A few mildly enlarged mediastinal lymph nodes are unchanged with the dominant being the subcarinal lymph node again measuring 1.4 x 1.0 cm. No new lymphadenopathy is appreciated. Stable cardiomegaly without pericardial effusion. The left subclavian Port-A-Cath is in stable position. No concerning focal osseous lesions have developed. CT ABDOMEN AND PELVIS: No free intraperitoneal air or fluid. Stable fatty infiltration along the falciform ligament. No concerning focal hepatic lesion. The gallbladder, spleen and pancreas are normal. No adrenal mass. No solid renal mass or obstructive uropathy. Stable exophytic cyst off the lower pole of the right kidney. Urinary bladder is normally distended without wall thickening. Hysterectomy. No concerning adnexal mass. No bowel obstruction or pericolonic inflammatory change. The stomach is decompressed, limiting assessment. No worrisome focal osseous lesions. IMPRESSION: 1. Right middle lobe mixed solid and cystic mass continues to increase in size. 2. No change in a few mildly enlarged mediastinal lymph nodes. No new lymphadenopathy in the chest, abdomen or pelvis. 3. No change in focal fatty infiltration along the falciform ligament of the liver. No new intra-abdominal abnormality that would suggest metastatic disease. Dictated by: Dictated on workstation # [id number]
== END ==
LOC: RAD 10:15
PROVIDERS: ATTEND Nurse Practitioner Adult Health
DX: C90.00 Multiple myeloma not having achieved remission (principal)
CPT/HCPCS: 71260; 74178

== ENCOUNTER 2021-03-17 08:54 | Outpatient (RCR) | payer MEDICARE, MEDICAID ==
[2021-03-10 09:52] LABS: BASOPHILS # (AUTO) 0.1 10^3/uL (0.0-0.1); BASOPHILS % (AUTO) 0 % (0-10); EOSINOPHILS # (AUTO) 0.1 10^3/uL (0.0-0.3); EOSINOPHILS % (AUTO) 0 % (0-10); HEMATOCRIT 37 % (35-52); LYMPHOCYTES # (AUTO) 1.1 10^3/uL (1.0-4.0); LYMPHOCYTES % (AUTO) 6 % (12-44); MEAN CORPUSCULAR HEMOGLOBIN 24 pg (25-34); MEAN CORPUSCULAR HGB CONC 30 g/dL (32-36); MEAN CORPUSCULAR VOLUME 80 fL (80-99); MEAN PLATELET VOLUME 9.4 fL (9.0-12.2); MONOCYTES # (AUTO) 1.1 10^3/uL (0.0-1.0); MONOCYTES % (AUTO) 6 % (0-12); NEUTROPHILS # (AUTO) 16.9 10^3/uL (1.8-7.8); NEUTROPHILS % (AUTO) 88 % (42-75); PLATELET COUNT 432 10^3/uL (130-400); WHITE BLOOD COUNT 19.3 10^3/uL (4.3-11.0)
[2021-03-10 10:20] LABS: ALBUMIN 3.1 GM/DL (3.2-4.5); BILIRUBIN,TOTAL 0.6 MG/DL (0.1-1.0); CALCIUM 9.7 MG/DL (8.5-10.1); CREATININE SERUM 0.79 MG/DL (0.60-1.30); POTASSIUM 3.6 MMOL/L (3.6-5.0); TOTAL PROTEIN 6.4 GM/DL (6.4-8.2)
[~2021-03-17 08:54] MED LIST changes: -CATHETER FLUSH 10 ML SYR IV PRN; -HOLD METFORMIN - RECEIVED CONTRAST 20 ML VIAL IV SCH; -IOHEXOL 350 MG/ML 100 ML (OMNIPAQUE 350) VIAL IV ONE; -NS 100 ML (IVPB) BAG IV ONE
[2021-03-27] MEDS ORDERED: LEVO88TA54 PO (10:37)
[2021-03-27] MEDS ORDERED: ALPR0.254 PO (10:37)
[2021-03-27] MEDS ORDERED: CLOP75TA28 PO (10:37)
== END 2021-03-27 13:00 | disposition home or self-care (01) ==
LOC: ONC 08:54
PROVIDERS: ATTEND Internal Medicine Hematology & Oncology
DX: Z45.2 Encounter for adjustment and management of vascular access device (principal)
CPT/HCPCS: 36591; 80053; 84443; 85025; 99213

== ENCOUNTER 2021-03-26 12:00 | Inpatient (IN) | payer MEDICARE, MEDICAID ==
[~2021-03-26] VITALS: Ht 167 cm; Wt 53.4 kg
[2021-03-26] MEDS ORDERED: VANCOMYCIN INJECTION 1,000 MG in NS (IVPB) 250 ML IV ONE (12:30)
[2021-03-26] MEDS ORDERED: CEFEPIME INJECTION 1,000 MG in NS (IVPB) 50 ML IV ONE (12:30)
[2021-03-26] MEDS ORDERED: NS IV 1000 ML 1,000 ML IV ONE (12:30)
[2021-03-26] MEDS ORDERED: NS IV 1000 ML 1,000 ML IV SCH (12:30)
[2021-03-26] MEDS ORDERED: NS IV 500 ML 500 ML IV ONE ×2 (12:30→23:00)
--- NOTE | 2021-03-26 12:31 | ED Fall/Injury ---
General Stated Complaint: WEAKNESS Source: patient Exam Limitations: no limitations History of Present Illness Date Seen by Provider: Mar 26, 2021 Time Seen by Provider: 12:05 Initial Comments Patient ER by EMS from home with chief complaint she was sitting in her walker and slid out of it striking her left forehead. She denies loss of consciousness. She remembers everything that happened and does not know why she fell. Her home health nurse called EMS because her blood pressure was low in the 90s. Patient follows with Dr. Mitchell and Dr. Salcido. She is on Plavix. She only has a little pain around her left eye but no difficulty with vision or pain in her neck hips knees or back. She says she has been having some difficulty with urination recently and was treated a couple weeks ago for a UTI with antibiotics outpatient. She has not been on steroids recently. She has lung cancer and is on chemotherapy by Dr. Treadwell. She did receive a booster shot for COVID but not her latest booster. She did receive influenza vaccination. No diarrhea nausea vomiting. Allergies and Home Medications Allergies Coded Allergies: ipratropium bromide (Unverified Allergy, Unknown, PASSED OUT, SOB, 02/14/20) levofloxacin (Verified Allergy, Unknown, 02/08/07) Patient Home Medication List Home Medication List Reviewed: Yes ALPRAZolam (Xanax Tablet) 0.25 Mg Tablet, 0.25 MG PO TID PRN for ANXIETY, (Reported) Entered as Reported by: ALLI PANCHAL on 11/05/19 0946 Amlodipine Besylate (Amlodipine Besylate) 10 Mg Tablet, 10 MG PO DAILY, (Reported) Entered as Reported by: DEENA MONTERROSO on 07/06/17 0936 Aspirin (Adult Low Dose Aspirin EC) 81 Mg Tablet., 81 MG PO DAILY, (Reported) Entered as Reported by: JESUS BRAND on 11/14/14 0923 Clopidogrel Bisulfate (Plavix) 75 Mg Tablet, 75 MG PO DAILY, (Reported) Entered as Reported by: JESUS BRNAD on 04/30/15 1528 Hydrocodone/Acetaminophen (Hydrocodone-Acetamin 5-325 mg) 1 Each Tablet, 1-2 EACH PO Q4H Prescribed by: CARISA PANTOJA on 11/08/19 0955 Indapamide (Indapamide) 1.25 Mg Tablet, 1.25 MG PO DAILY, (Reported) Entered as Reported by: ALLI PANCHAL on 11/05/19 0946 Magnesium Oxide (Magnesium Oxide) 400 Mg Tablet, 400 MG PO DAILY, (Reported) Entered as Reported by: PAT QUINONES on 05/27/20 0941 [place]-3/Dha/Epa/Fish Oil (Fish Oil 1,000 mg Softgel) 1 Each Capsule, 2 EACH PO DAILY, (Reported) Entered as Reported by: PAT QUINONES on 05/27/20 0941 Potassium Chloride (Potassium Chloride) 10 Meq Tab.er.prt, 10 MEQ PO DAILY, (Reported) Entered as Reported by: PAT QUINONES on 05/27/20 0941 Rosuvastatin Calcium (Rosuvastatin Calcium) 10 Mg Tablet, 10 MG PO HS, (Reported) Entered as Reported by: DEENA MONTERROSO on 07/06/17 0937 Review of Systems Review of Systems Constitutional: No chills, No diaphoresis Eyes: Denies Blindness, Denies Blurred Vision Ears, Nose, Mouth, Throat: denies ear pain, denies ear discharge Respiratory: No cough, No phlegm, No short of breath Cardiovascular: No chest pain, No palpitations Gastrointestinal: No abdominal pain, No nausea, No vomiting Genitourinary: No discharge, No dysuria Musculoskeletal: No back pain, No joint pain Psychiatric/Neurological: Anxiety; Denies Depressed All Other Systems Reviewed Negative Unless Noted: Yes Past Bcgxhli-Jydarf-Dotuhf Hx Patient Social History Tobacco Use?: No Use of E-Cig and/or Vaping dev: No Substance use?: No Seasonal Allergies Seasonal Allergies: Yes Past Medical History Surgeries: Yes (bilat mastecectomy, artifical artery in left leg) Hysterectomy, Lumpectomy Respiratory: Yes (lung ca) COPD Cardiac: Yes Hypertension Neurological: No Reproductive Disorders: Yes Genitourinary: No Gastrointestinal: Yes Chronic Constipation Musculoskeletal: Yes Arthritis Endocrine: No HEENT: Yes (cataracts removed, dentures) Cancer: Yes (skin, breast) Lung, Breast What Type of Treatment Did You: Chemotherapy, Radiation Psychosocial: Yes Anxiety Integumentary: No Blood Disorders: No Physical Exam Vital Signs Capillary Refill : Height, Weight, BMI Height: 5'6.00" Weight: 132lbs. 4.0oz. [id number]; 21.18 BMI Method: General Appearance: WD/WN, moderate distress HEENT: PERRL/EOMI (3 mm symmetric), TMs normal (Negative for francisco sign hemotympanum), pharynx normal, other (Hematoma on the left eye lateral soft tissues of the orbit with ecchymoses) Neck: non-tender, full range of motion, supple, normal inspection Cardiovascular: normal peripheral pulses, tachycardia, irregularly irregular Respiratory: lungs clear, normal breath sounds, no respiratory distress, no accessory muscle use Peripheral Pulses: 2+ Radial Pulses (R), 2+ Radial Pulses (L) Gastrointestinal: normal bowel sounds, non tender, soft Extremities: normal range of motion, non-tender, normal capillary refill 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, no motor/sensory deficits, alert, normal mood/affect, oriented x 3 Skin: warm/dry, ecchymosis (Lateral to the left eye) Alok Coma Score Best Eye Response: (4) Open Spontaneously Best Verbal Response: (5) Oriented Best Motor Response: (6) Obeys Commands Alok Total: 15 Progress/Results/Core Measures Results/Orders Lab Results Laboratory Tests Test 03/26/21 12:25 03/26/21 12:41 Range/Units White Blood Count 17.5 H 4.3-11.0 10^3/uL Red Blood Count 4.54 3.80-5.11 10^6/uL Hemoglobin 11.0 L 11.5-16.0 g/dL Hematocrit 37 35-52 % Mean Corpuscular Volume 82 80-99 fL Mean Corpuscular Hemoglobin 24 L 25-34 pg Mean Corpuscular Hemoglobin Concent 30 L 32-36 g/dL Red Cell Distribution Width 20.5 H 10.0-14.5 % Platelet Count 278 130-400 10^3/uL Mean Platelet Volume 10.6 9.0-12.2 fL Immature Granulocyte % (Auto) 1 % Neutrophils (%) (Auto) 88 H 42-75 % Lymphocytes (%) (Auto) 6 L 12-44 % Monocytes (%) (Auto) 6 0-12 % Eosinophils (%) (Auto) 0 0-10 % Basophils (%) (Auto) 0 0-10 % Neutrophils # (Auto) 15.3 H 1.8-7.8 10^3/uL Lymphocytes # (Auto) 1.0 1.0-4.0 10^3/uL Monocytes # (Auto) 1.0 0.0-1.0 10^3/uL Eosinophils # (Auto) 0.0 0.0-0.3 10^3/uL Basophils # (Auto) 0.0 0.0-0.1 10^3/uL Immature Granulocyte # (Auto) 0.1 0.0-0.1 10^3/uL Neutrophils % (Manual) 94 % Lymphocytes % (Manual) 1 % Monocytes % (Manual) 5 % Eosinophils % (Manual) 0 % Basophils % (Manual) 0 % Band Neutrophils 0 % Anisocytosis SLIGHT Tear Drop Cells SLIGHT Elliptocytes SLIGHT Prothrombin Time 16.1 H 12.2-14.7 SEC INR Comment 1.3 0.8-1.4 Activated Partial Thromboplast Time 36 H 24-35 SEC Sodium Level 142 135-145 MMOL/L Potassium Level 3.4 L 3.6-5.0 MMOL/L Chloride Level 98 98-107 MMOL/L Carbon Dioxide Level 34 H 21-32 MMOL/L Anion Gap 10 5-14 MMOL/L Blood Urea Nitrogen 16 7-18 MG/DL Creatinine 0.81 0.60-1.30 MG/DL Estimat Glomerular Filtration Rate 71 BUN/Creatinine Ratio 20 Glucose Level 142 H 70-105 MG/DL Lactic Acid Level 1.82 0.50-2.00 MMOL/L Calcium Level 10.0 8.5-10.1 MG/DL Corrected Calcium 11.0 H 8.5-10.1 MG/DL Total Bilirubin 0.8 0.1-1.0 MG/DL Aspartate Amino Transf (AST/SGOT) 13 5-34 U/L Alanine Aminotransferase (ALT/SGPT) 16 0-55 U/L Alkaline Phosphatase 108 40-136 U/L Troponin I < 0.028 <0.028 NG/ML Total Protein 5.8 L 6.4-8.2 GM/DL Albumin 2.8 L 3.2-4.5 GM/DL Influenza Type A (RT-PCR) Not Detected Not Detecte Influenza Type B (RT-PCR) Not Detected Not Detecte SARS-CoV-2 RNA (RT-PCR) Not Detected Not Detecte Blood Gas Puncture Site RR Blood Gas Patient Temperature 36.1 Arterial Blood pH 7.39 7.37-7.43 Arterial Blood Partial Pressure CO2 59 H 35-45 MMHG Arterial Blood Partial Pressure O2 145 H 79-93 MMHG Arterial Blood HCO3 35 H 23-27 MMOL/L Arterial Blood Total CO2 37.3 H 21.0-31.0 MMOL/L Arterial Blood Oxygen Saturation 99 94-100 % Arterial Blood Base Excess 10.0 H -2.5-2.5 MMOL/L Quentin Test YES-POS Blood Gas Ventilator Setting NO Blood Gas Inspired Oxygen 3L Micro Results Microbiology 03/26/21 DANYELL Preparation - Final, Complete My Orders Orders - KRISSY KEANE Cbc With Automated Diff (03/26/21 12:18) Comprehensive Metabolic Panel (03/26/21 12:18) Blood Culture (03/26/21 12:18) Urinalysis (03/26/21 12:18) Protime With Inr (03/26/21 12:18) Partial Thromboplastin Time (03/26/21 12:18) Chest 1 View, Ap/Pa Only (03/26/21 12:18) Ed Iv/Invasive Line Start (03/26/21 12:18) Ed Iv/Invasive Line Start (03/26/21 12:18) Ekg Tracing (03/26/21 12:18) Troponin I Butler (03/26/21 12:18) Vital Signs Adult Sepsis Patie Q15M (03/26/21 12:18) O2 (03/26/21 12:18) Remove Rings In Anticipation O (03/26/21 12:18) Lactic Acid Analyzer (03/26/21 12:18) Influenza A And B By Pcr (03/26/21 12:18) Ns Iv 1000 Ml (Sodium Chloride 0.9%) (03/26/21 12:30) Cefepime Injection (Maxipime Injection) (03/26/21 12:30) Vancomycin Injection (Vancomycin Injecti (03/26/21 12:30) Ed Iv/Invasive Line Start (03/26/21 12:18) Ct Head/Face/Cervical Wo (03/26/21 12:18) Covid 19 Inhouse Test (03/26/21 12:18) Danyell Prep (03/26/21 12:18) Ed Iv/Invasive Line Start (03/26/21 12:22) Ed Iv/Invasive Line Start (03/26/21 12:24) Ns Iv 1000 Ml (Sodium Chloride 0.9%) (03/26/21 12:30) Arterial Blood Gas (03/26/21 12:26) Manual Differential (03/26/21 12:25) Medications Given in ED Current Medications Medications Dose Ordered Sig/Zainab Route Start Time Stop Time Status Last Admin Dose Admin Cefepime HCl 1000 mg/Sodium Chloride 50 ml @ 100 mls/hr ONCE ONCE IV 03/26/21 12:30 03/26/21 12:59 DC 03/26/21 14:40 100 MLS/HR Sodium Chloride 1,000 ml @ 0 mls/hr Q0M ONCE IV 03/26/21 12:30 03/26/21 12:31 DC 03/26/21 14:42 1,000 MLS/HR Vancomycin HCl 1000 mg/Sodium Chloride 250 ml @ 250 mls/hr ONCE ONCE IV 03/26/21 12:30 03/26/21 13:29 DC 03/26/21 14:59 250 MLS/HR Progress Progress Note : Time: 12:29 Progress Note Plan to get a CT of her head face and neck. She is hypoxic with oxygen saturations in the 85 to 87% range. She does not use oxygen at baseline but does have lung cancer and COPD. Put her on 2 L which brought her up into the low 90s. She is tachycardic 1 30-1 40, sinus appearing. We will get an EKG to confirm that. We will give her some fluids as her blood pressures are soft in the upper 80s to 100 range systolic. 30 mL/kg would be about 2 L. We will get a chest x- ray and septic work-up with cefepime and vancomycin for possible pneumonia. COVID and influenza swabs. Initial ECG Impression Date: Mar 26, 2021 Initial ECG Impression Time: 12:13 Initial ECG Rate: 146 Initial ECG Rhythm: A Fib/Flutter Initial ECG Intervals: QT (504) Initial ECG Impression: Atrial Fibrillation w/RVR Comment Atrial fibrillation with rapid rate. No clinically relevant ST changes. Diagnostic Imaging Diagonstic Imaging: Xray Plain Films/CT/US/NM/MRI: chest Comments [facility] [place], [place] NAME: OMAR MELENDEZ [facility] REC#: [id number] PT STATUS: REG ER : 1935 PHYSICIAN: KRISSY KEANE MD ADMIT DATE: 03/26/21/ER Draft Date of Exam:03/26/21 CHEST 1 VIEW, AP/PA ONLY CLINICAL INDICATION: Patient with shortness of air and sepsis. EXAM: Portable chest x-ray, upright view. COMPARISON: Chest x-ray dated 11/15/2019. FINDINGS: There is interval development of consolidation of the right lung base region. There is blunting of the right costophrenic angle. There are increased lung markings in the left lung base, which may represent atelectasis or scarring. There is no left pleural effusion. There is no pneumothorax. Pulmonary vasculature and cardiac silhouette are within normal limits. Bones show no significant abnormality. Port-A-Cath is again seen overlying the left chest with tip in the distal superior vena cava region. IMPRESSION: 1: There is interval development of consolidation of the right lung base including the middle lobe. This may be related to pneumonia. Unable to determine if there is an underlying mass or other process. There is a suspected right pleural effusion. 2: The remainder of this exam shows no other acute process. Dictated on workstation # [id number] Dict: 03/26/21 1334 Trans: 03/26/21 1339 [id number] Interpreted by: OLIVA QUINTERO MD Electronically signed by: Reviewed: Reviewed by Wy Diagonstic Imaging: CT Plain Films/CT/US/NM/MRI: facial bones, c-spine, head Comments [facility] [place] NAME: OMAR MELENDEZ [facility] REC#: [id number] PT STATUS: REG ER : 1935 PHYSICIAN: KRISSY KEANE MD ADMIT DATE: 03/26/21/ER Draft Date of Exam:03/26/21 CT HEAD/FACE/CERVICAL WO CLINICAL INDICATION: Patient scooted chair and hit left side of head/face. Patient has bruising to left eye and is painful. EXAM: Axial Head CT without IV contrast with sagittal and coronal reformations. Axial Maxillofacial CT scan without IV contrast with sagittal and coronal reformations. Axial CT scan of the cervical spine with sagittal and coronal reformations. Auto Exposure Controls were utilized during the CT exam to meet ALARA standards for radiation dose reduction. COMPARISON: Head CT with and without contrast dated 07/25/2019. Whole body PET/CT scan dated 07/26/2017. FINDINGS: Head and maxillofacial CT: There is no evidence of acute cerebral infarct, intracranial hemorrhage, or gross mass effect. There is diffuse brain parenchymal volume loss. There are subtle focal and patchy areas of low-density changes throughout white matter of both cerebral hemispheres likely representing chronic small vessel ischemic disease. There is normal hull-white matter distinction. There is no significant midline shift or herniation. There is no evidence of hydrocephalus. The basal cisterns are unremarkable. There is no skull or maxillofacial fracture. There is a small area of extracranial soft tissue swelling involving the left lateral aspect of the head/periorbital region. Orbits and globes are intact. Otherwise, the skull, extracranial soft tissue, and orbits are unremarkable. There is mild mucosal thickening involving the ethmoid sinus. Temporal bones show no significant abnormality. Cervical spine: There is no acute cervical spine fracture or dislocation. There are cervical spine vertebral body spurs and facet arthropathy. There are multiple lucent areas scattered throughout the visualized cervical spine. Unknown if this is related to osteopenia versus infiltrative process. There is no significant neck soft tissue abnormality. Partially visualized right pleural effusion. 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 This laryngocele measures roughly 1.3 cm x 1.8 cm in greatest axial dimension. There is an area of increased density involving the right piriform sinus measuring 7 mm x 6 mm, which has increased in size in the interim compared to the prior whole body PET/CT scan dated 07/26/2017. Previously this area was measured at 11 mm x 8 mm. This may represent a vallecular cyst. IMPRESSION: 1: There is no evidence of acute intracranial process. There is no intracranial hemorrhage. 2: There is a small area of extracranial soft tissue swelling involving the left lateral aspect of the head/left periorbital region. There is no skull or maxillofacial fracture. Globes and orbits are otherwise unremarkable. 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 4: Partially visualized right pleural effusion. Chest x-ray, PA and lateral views would help better evaluate. Dictated on workstation # [id number] Dict: 03/26/21 1411 Trans: 03/26/21 1432 [id number] Interpreted by: OLIVA QUINTERO MD Electronically signed by: Reviewed: Reviewed by Me Focused Exam Sepsis Stage: Sepsis Possible Source: Pulmonary Lactate Level 03/26/21 12:25: Lactic Acid Level 1.82 Time of Focused Exam: 18:22 Respiratory: No Accessory Muscle Use, No Respiratory Distress Cardiovascular: Regular Rate, Rhythm, No Edema, Normal Peripheral Pulses Capillary Refill: Less Than 3 Seconds Peripheral Pulses: 2+ Radial Pulses (R), 2+ Radial Pulses (L) Skin: normal color, warm/dry Lactic Acid Level Laboratory Tests Test 03/26/21 12:25 Lactic Acid Level 1.82 MMOL/L (0.50-2.00) Within 3hrs of presentation: Admin fluids, Admin ABX, Blood cultures prior to ABX's, Focus exam, Lactate level Departure Communication (Admissions) Time/Spoke to Admitting Phy: 14:45 Dr. Salcido agrees to admit the patient to the floor for pneumonia, oxygen therapy and IV antibiotics. Impression Primary Impression: Pneumonia Qualified Codes: J18.9 - Pneumonia, unspecified organism Additional Impression: Acute respiratory failure with hypoxia Disposition: ADMITTED INPATIENT Condition: Stable Admissions Decision to Admit Reason: Admit from ER (General) Decision to Admit/Date: Mar 26, 2021 Time/Decision to Admit Time: 14:35 Departure-Patient Inst. Referrals: RICKI SALCIDO MD (PCP/Family) Primary Care Physician KRISSY KEANE Mar 26, 2021 12:31
[2021-03-26 12:43] LABS: BASOPHILS % (AUTO) 0 % (0-10); EOSINOPHILS % (AUTO) 0 % (0-10); HEMATOCRIT 37 % (35-52); LYMPHOCYTES % (AUTO) 6 % (12-44); MEAN CORPUSCULAR HEMOGLOBIN 24 pg (25-34); MEAN CORPUSCULAR HGB CONC 30 g/dL (32-36); MEAN CORPUSCULAR VOLUME 82 fL (80-99); MEAN PLATELET VOLUME 10.6 fL (9.0-12.2); MONOCYTES % (AUTO) 6 % (0-12); NEUTROPHILS # (AUTO) 15.3 10^3/uL (1.8-7.8); NEUTROPHILS % (AUTO) 88 % (42-75); PLATELET COUNT 278 10^3/uL (130-400); WHITE BLOOD COUNT 17.5 10^3/uL (4.3-11.0)
[2021-03-26 12:49] LABS: ABG OXYGEN SATURATION 99 % (94-100); ABG PCO2 59 MMHG (35-45); ABG PH 7.39 (7.37-7.43); ABG PO2 145 MMHG (79-93); ABG TCO2 37.3 MMOL/L (21.0-31.0)
[2021-03-26 12:56] LABS: INR 1.3 (0.8-1.4); PROTHROMBIN TIME PATIENT 16.1 SEC (12.2-14.7)
[2021-03-26 12:58] LABS: ALBUMIN 2.8 GM/DL (3.2-4.5); CHLORIDE 98 MMOL/L (98-107); POTASSIUM 3.4 MMOL/L (3.6-5.0); SODIUM 142 MMOL/L (135-145)
[2021-03-26 13:00] LABS: GLUCOSE 142 MG/DL (70-105); TOTAL PROTEIN 5.8 GM/DL (6.4-8.2)
[2021-03-26 13:01] LABS: CARBON DIOXIDE 34 MMOL/L (21-32)
[2021-03-26 13:02] LABS: BILIRUBIN,TOTAL 0.8 MG/DL (0.1-1.0)
[2021-03-26 13:04] LABS: ALKALINE PHOSPHATASE 108 U/L (40-136); CREATININE SERUM 0.81 MG/DL (0.60-1.30); GFR ESTIMATED 71
[2021-03-26 13:05] LABS: BUN/CREATININE RATIO 20
[2021-03-26 13:07] LABS: ALANINE AMINOTRANSFERASE 16 U/L (0-55)
[2021-03-26 13:12] LABS: ANISOCYTOSIS SLIGHT; BAND NEUTROPHILS 0 %; BASOPHILS % (MANUAL) 0 %; ELLIPT/OVALOCYTES SLIGHT; EOSINOPHILS % (MANUAL) 0 %; LYMPHOCYTES % (MANUAL) 1 %; MONOCYTES % (MANUAL) 5 %; NEUTROPHILS % (MANUAL) 94 %; TEAR DROP CELLS SLIGHT
[2021-03-26 13:28] LABS: ALLENS TEST YES-POS; INSPIRED O2 3L; PATIENT TEMP 36.1; VENTILATOR NO
--- NOTE | 2021-03-26 13:39 | Diagnostic Imaging Report ---
CLINICAL INDICATION: Patient with shortness of air and sepsis. EXAM: Portable chest x-ray, upright view. COMPARISON: Chest x-ray dated 11/15/2019. FINDINGS: There is interval development of consolidation of the right lung base region. There is blunting of the right costophrenic angle. There are increased lung markings in the left lung base, which may represent atelectasis or scarring. There is no left pleural effusion. There is no pneumothorax. Pulmonary vasculature and cardiac silhouette are within normal limits. Bones show no significant abnormality. Port-A-Cath is again seen overlying the left chest with tip in the distal superior vena cava region. IMPRESSION: 1: There is interval development of consolidation of the right lung base including the middle lobe. This may be related to pneumonia. Unable to determine if there is an underlying mass or other process. There is a suspected right pleural effusion. 2: The remainder of this exam shows no other acute process. Dictated by: Dictated on workstation # [id number]
--- NOTE | 2021-03-26 14:33 | Diagnostic Imaging Report ---
CLINICAL INDICATION: Patient scooted chair and hit left side of head/face. Patient has bruising to left eye and is painful. EXAM: Axial Head CT without IV contrast with sagittal and coronal reformations. Axial Maxillofacial CT scan without IV contrast with sagittal and coronal reformations. Axial CT scan of the cervical spine with sagittal and coronal reformations. Auto Exposure Controls were utilized during the CT exam to meet ALARA standards for radiation dose reduction. COMPARISON: Head CT with and without contrast dated 07/25/2019. Whole body PET/CT scan dated 07/26/2017. FINDINGS: Head and maxillofacial CT: There is no evidence of acute cerebral infarct, intracranial hemorrhage, or gross mass effect. There is diffuse brain parenchymal volume loss. There are subtle focal and patchy areas of low-density changes throughout white matter of both cerebral hemispheres likely representing chronic small vessel ischemic disease. There is normal hull-white matter distinction. There is no significant midline shift or herniation. There is no evidence of hydrocephalus. The basal cisterns are unremarkable. There is no skull or maxillofacial fracture. There is a small area of extracranial soft tissue swelling involving the left lateral aspect of the head/periorbital region. Orbits and globes are intact. Otherwise, the skull, extracranial soft tissue, and orbits are unremarkable. There is mild mucosal thickening involving the ethmoid sinus. Temporal bones show no significant abnormality. Cervical spine: There is no acute cervical spine fracture or dislocation. There are cervical spine vertebral body spurs and facet arthropathy. There are multiple lucent areas scattered throughout the visualized cervical spine. Unknown if this is related to osteopenia versus infiltrative process. There is no significant neck soft tissue abnormality. Partially visualized right pleural effusion. 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 This laryngocele measures roughly 1.3 cm x 1.8 cm in greatest axial dimension. There is an area of increased density involving the right piriform sinus measuring 7 mm x 6 mm, which has increased in size in the interim compared to the prior whole body PET/CT scan dated 07/26/2017. Previously this area was measured at 11 mm x 8 mm. This may represent a vallecular cyst. IMPRESSION: 1: There is no evidence of acute intracranial process. There is no intracranial hemorrhage. 2: There is a small area of extracranial soft tissue swelling involving the left lateral aspect of the head/left periorbital region. There is no skull or maxillofacial fracture. Globes and orbits are otherwise unremarkable. 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 4: Partially visualized right pleural effusion. Chest x-ray, PA and lateral views would help better evaluate. 5: Multiple lucent areas involving the visualized cervical spine. Unknown if this related to osteopenia or infiltrative process. If these are not known findings, and there are is a history of cancer, nonemergent MRI of the cervical spine with and without contrast would better evaluate. Dictated by: Dictated on workstation # [id number]
[2021-03-26 15:16] LABS: BILIRUBIN,URINE NEGATIVE (NEGATIVE); CLARITY,URINE CLEAR; COLOR,URINE YELLOW; GLUCOSE, URINE (UA) NEGATIVE (NEGATIVE); KETONES,URINE NEGATIVE (NEGATIVE); LEUKOCYTE ESTERASE ,URINE NEGATIVE (NEGATIVE); NITRITE,URINE NEGATIVE (NEGATIVE); PROTEIN,URINE 2+ (NEGATIVE)
[2021-03-26 15:44] LABS: BACTERIA,URINE MODERATE /HPF; RBC,URINE RARE /HPF; WBC,URINE RARE /HPF
[2021-03-26 15:45] LABS: GRANULAR CASTS,URINE 0-2 /LPF; SQUAMOUS EPITHELIAL CELL,UR 0-2 /HPF
[2021-03-26 16:00] VITALS: BP 81/60
[2021-03-26] MEDS ORDERED: ACETAMINOPHEN 650 MG SUPP (TYLENOL) PR PRN (16:15)
[2021-03-26] MEDS ORDERED: CATHETER FLUSH 10 ML SYR IV PRN (16:15)
[2021-03-26] MEDS ORDERED: ONDANSETRON 4 MG/2 ML (SDV) Z0FRAN IV PRN (16:15)
[2021-03-26 16:17] VITALS: BP 104/79
[2021-03-26] MEDS: NYSTATIN ORAL SUSP 5 ML UDC PO SCH ×2 (16:27→21:32)
[2021-03-26] MEDS: NS IV 1000 ML 1,000 ML IV SCH ×2 (16:27→23:04)
[2021-03-26] MEDS ORDERED: RT-ALBUTEROL SULF 2.5 MG/3 ML PRE-MIX VIAL INH PRN (16:30)
[2021-03-26] MEDS ORDERED: RT-ALBUTEROL SULF 2.5 MG/3 ML PRE-MIX VIAL INH SCH (18:00)
[2021-03-26 18:50] VITALS: BP_SYST 88
[2021-03-26 20:00] VITALS: BP 165/111
[2021-03-26] MEDS: CEFEPIME 1,000 MG/NS 50 ML IVPB IV SCH ×2 (21:32)
[2021-03-26 22:29] VITALS: BP 85/62
[2021-03-26] MEDS ORDERED: NS (IVPB) 250 ML IV ONE (23:00)
[2021-03-26] MEDS: ALPRAZolam 0.25 MG (XANAX) TAB PO PRN (23:32)
[2021-03-27] VITALS (9 sets, daily range): BP systolic 75–92; BP diastolic 51–54
[2021-03-27] MEDS ORDERED: NS IV 500 ML 500 ML IV ONE (01:15)
[2021-03-27 04:27] LABS: BASOPHILS % (AUTO) 0 % (0-10); EOSINOPHILS # (AUTO) 0.1 10^3/uL (0.0-0.3); EOSINOPHILS % (AUTO) 1 % (0-10); HEMATOCRIT 32 % (35-52); HEMOGLOBIN 9.1 g/dL (11.5-16.0); LYMPHOCYTES % (AUTO) 7 % (12-44); MEAN CORPUSCULAR HEMOGLOBIN 24 pg (25-34); MEAN CORPUSCULAR HGB CONC 29 g/dL (32-36); MEAN CORPUSCULAR VOLUME 83 fL (80-99); MEAN PLATELET VOLUME 9.9 fL (9.0-12.2); MONOCYTES # (AUTO) 0.8 10^3/uL (0.0-1.0); MONOCYTES % (AUTO) 6 % (0-12); NEUTROPHILS # (AUTO) 12.2 10^3/uL (1.8-7.8); NEUTROPHILS % (AUTO) 86 % (42-75); PLATELET COUNT 219 10^3/uL (130-400); WHITE BLOOD COUNT 14.2 10^3/uL (4.3-11.0)
[2021-03-27 04:43] LABS: POTASSIUM 3.1 MMOL/L (3.6-5.0)
[2021-03-27 04:44] LABS: CALCIUM 8.2 MG/DL (8.5-10.1)
[2021-03-27 04:49] LABS: CREATININE SERUM 0.59 MG/DL (0.60-1.30)
[2021-03-27] MEDS: LEVOTHYROXINE 75 MCG (LEVOTHROID) TABLET PO SCH (06:28)
[2021-03-27] MEDS: CEFEPIME 1,000 MG/NS 50 ML IVPB IV SCH ×6 (06:28→20:50)
[2021-03-27] MEDS: NS IV 1000 ML 1,000 ML IV SCH ×3 (08:06→20:50)
[2021-03-27] MEDS: CLOPIDOGREL 75 MG (PLAVIX) TABLET PO SCH (08:07)
[2021-03-27] MEDS: NYSTATIN ORAL SUSP 5 ML UDC PO SCH ×4 (08:07→20:50)
--- NOTE | 2021-03-27 08:18 | Diagnostic Imaging Report ---
INDICATION: Pneumonia, history of lung cancer. TECHNIQUE: Single view chest 6:30 AM. CORRELATION STUDY: 03/26/2021 FINDINGS: Left-sided [id number] catheter, stable. Heart size and mediastinum are unchanged. Mass which appears increased from prior. Asymmetric opacity at the right lung base likely a combination of consolidation and effusion does persist. However, there is some improvement with likely decrease in the fluid component compared to prior. The known masslike consolidation in the middle lobe does persist. Elsewhere, overall has increased opacity of the lung tamayo. Left lung base demonstrates obscuration of the left diaphragm could be a combination of effusion with atelectasis or infiltrate left lung base. IMPRESSION: 1. Mixed changes at follow-up assessment. 2. Likely fluid at the right lung base overall appears improved with some improved aeration of the right lung base. 3. Masslike consolidation right middle lobe does persist. 4. Vasculature overall appears increased in generalized opacity through the lung tamayo. Could reflect underlying edema. More focal infiltrate, edema, atelectasis and/or effusion left lung base, however, is suggested. Dictated by: Dictated on workstation # [id number]
[2021-03-27] MEDS: RT-ALBUTEROL SULF 2.5 MG/3 ML PRE-MIX VIAL INH SCH ×4 (08:52→22:03)
--- NOTE | 2021-03-27 09:54 | History & Physical ---
History of Present Illness History of Present Illness Reason for visit/HPI PT IS AN 85 Y/O FEMALE WHO IS KNOWN TO ME FROM CLINIC. ADINA HAS LUNG CANCER WHICH RECURRED. ADINA HAS BEEN PROGRESSIVELY DECLINING OVER THE PAST FEW WEEKS AND SHE HAS BEEN RECEIVING HOME HEALTH. THE HOME HEALTH NURSE CALLED ME ON TUESDAY EVENING AND REPORTED THAT THE PATIENT HAD FALLEN AND HAD A LOW BLOOD PRESSURE. I ADVISED THE NURSE AT THAT TIME THAT THE PATIENT NEEDED TO BE ADMITTED TO THE HOSPITAL OR TO CONSIDER GOING ON HOSPICE. THE PATIENT WAS "THINKING ABOUT HER OPTIONS" AND REFUSED TO GO TO THE HOSPITAL. SHE HAD PERSISTENT FALLING EPISODES OVER THE FOLLOWING TWO DAYS AND FINALLY AGREED TO GO TO THE HOSPITAL WHERE SHE WAS EVALUATED IN THE ER, FOUND TO BE SEPTIC AND ADMITTED TO THE HOSPITAL. ADINA REPORTS THAT SHE IS NOT SURE WHAT SHE WANTS TO DO FROM A TREATMENT STANDPOINT, AND SHE IS THINKING ABOUT HOSPICE AN OPTION, BUT IF HER HEART STOPS SHE DOES NOT WANT RESUSCITATED. Date of Admission Mar 26, 2021 at 14:45 Date Seen by a Provider: Mar 27, 2021 Time Seen by a Provider: 09:15 I consulted on this patient on 03/27/21 09:51 Attending Physician Ricki Salcido MD Admitting Physician Ricki Salcido MD Consult Allergies and Home Medications Allergies Coded Allergies: ipratropium bromide (Unverified Allergy, Unknown, PASSED OUT, SOB, 02/14/20) levofloxacin (Verified Allergy, Unknown, 02/08/07) Patient Home Medication List Home Medication List Reviewed: Yes ALPRAZolam (Xanax Tablet) 0.25 Mg Tablet, 0.25 MG PO TID PRN for ANXIETY, (Reported) Entered as Reported by: ALLI PANCHAL on 11/05/19 0946 Last Action: Reviewed Amlodipine Besylate (Amlodipine Besylate) 10 Mg Tablet, 10 MG PO DAILY, (Reported) Entered as Reported by: DEENA MONTERROSO on 07/06/17 0936 Last Action: Held Aspirin (Adult Low Dose Aspirin EC) 81 Mg Tablet.dr, 81 MG PO DAILY, (Reported) Entered as Reported by: JESUS BRAND on 11/14/14 0923 Last Action: Held Clopidogrel Bisulfate (Plavix) 75 Mg Tablet, 75 MG PO DAILY, (Reported) Entered as Reported by: JESUS BRAND on 04/30/15 1528 Last Action: Held Hydrocodone/Acetaminophen (Hydrocodone-Acetamin 5-325 mg) 1 Each Tablet, 1-2 EACH PO Q4H Prescribed by: CARISA PANTOJA on 11/08/19954 Last Action: Held Indapamide (Indapamide) 1.25 Mg Tablet, 1.25 MG PO DAILY, (Reported) Entered as Reported by: ALLI PANCHAL on 11/05/1946 Last Action: Held Magnesium Oxide (Magnesium Oxide) 400 Mg Tablet, 400 MG PO DAILY, (Reported) Entered as Reported by: PAT QUINONES on 05/27/20940 Last Action: Held Potassium Chloride (Potassium Chloride) 10 Meq Tab.er.prt, 10 MEQ PO DAILY, (Reported) Entered as Reported by: PAT QUINONES on 05/27/20940 Last Action: Held Discontinued Medications [place]-3/Dha/Epa/Fish Oil (Fish Oil 1,000 mg Softgel) 1 Each Capsule, 2 EACH PO DAILY, (Reported) Entered as Reported by: PAT QUINONES on 05/27/20940 Last Action: Discontinued Rosuvastatin Calcium (Rosuvastatin Calcium) 10 Mg Tablet, 10 MG PO HS, (Reported) Entered as Reported by: DEENA MONTERROSO on 07/06/17936 Last Action: Discontinued Past Cxorjhj-Umwomz-Eecwik Hx Patient Social History Marrital Status: single Number of Children: 0 Number of living children: 0 Living Status: LIVES IN APARTMENT BY HERSELF Employed/Student: retired Tobacco Use?: Yes Tobacco type used: Cigarettes Smoking Status: Current Everyday Smoker Use of E-Cig and/or Vaping dev: No Substance use?: No Alcohol Use?: No Pt feels they are or have been: No Immunizations Up To Date Date of Influenza Vaccine: Dec 19, 2012 Tetanus Booster (TDap): Unknown Date of Pneumonia Vaccine: Dec 28, 2013 Seasonal Allergies Seasonal Allergies: Yes Current Status status: No status: No Advance Directives: Yes Advance Directive Location: Home Communicates: Verbally Primary Language: Lithuanian Is interpretation needed?: No Sensory deficits: Vision impairment Implanted or Applied Medical D: None Past Medical History Surgeries: Hysterectomy, Lumpectomy COPD Hypertension Sexually Transmitted Disease: No HIV/AIDS: No Chronic Constipation Arthritis Lung, Breast What Type of Treatment Did You: Chemotherapy, Radiation Anxiety Blood Disorders: No Family Medical History Reviewed and Corrections made Heart Disease, Hypertension Review of Systems Constitutional: No chills; dizziness; No fever; malaise, weakness EENTM: hoarseness (INTERMITTENT); No throat pain Cardiovascular: No chest pain, No edema; palpitations Gastrointestinal: No abdominal pain, No constipation, No diarrhea; loss of appetite; No nausea, No vomiting Genitourinary: no symptoms reported Musculoskeletal: No back pain; muscle weakness; No neck pain Skin: No rash Psychiatric/Neurological: Anxiety, Weakness All Other Systems Reviewed Negative Unless Noted: Yes Physical Exam Vital Signs Vital Signs - First Documented 03/26/21 03/26/21 12:20 16:17 O2 Delivery Nasal Cannula O2 Flow Rate 2.00 FiO2 2 Capillary Refill : Less Than 3 Seconds Height, Weight, BMI Height: 5'6.00" Weight: 132lbs. 4.0oz. [id number]; 19.14 BMI Method: General Appearance: No Apparent Distress, WD/WN Eyes: Bilateral Eye Normal Inspection, Bilateral Eye PERRL, Bilateral Eye EOMI HEENT: PERRL/EOMI, Other (SLIGHTLY HOARSE VOICE, THRUSH) Neck: Full Range of Motion, Normal Inspection, Non Tender, Supple Respiratory: Chest Non Tender, No Respiratory Distress, Decreased Breath Sounds Cardiovascular: Irregularly Irregular, Tachycardia Gastrointestinal: Normal Bowel Sounds, No Organomegaly, No Pulsatile Mass, Non Tender, Soft Rectal: Deferred Back: Normal Inspection Extremity: Normal Capillary Refill, Non Tender, No Calf Tenderness, No Pedal Edema Neurologic/Psychiatric: Alert, Oriented x3, No Motor/Sensory Deficits, Normal 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, 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 Norm as Tested Skin: Normal Color, Warm/Dry Lymphatic: No Adenopathy Assessment/Plan Assessment and Plan SEPSIS HYPOTENSION LUNG CANCER OBSTRUCTIVE PNEUMONIA CHRONIC ATRIAL FIBRILLATION CORONARY ARTERY DISEASE CURRENT SMOKING/TOBACCO ABUSE FALLING EPISODES AT HOME GENERALIZED WEAKNESS LEUKOCYTOSIS ANEMIA HYPOKALEMIA FRAIL UNDERWEIGHT UNSAFE AT HOME DUE TO NO HELP AT HOME AND FALLING/FRAILTY SEPSIS WITH HYPOTENSION DUE TO OBSTRUCTIVE PNEUMONIA - PT HAS RECEIVED SEVERAL FLUID BOLUSES WITH SALINE AND IS CURRENTLY ON NS AT 150ML/HR - SUPPORTIVE CARE - IV ANTIBIOTICS - ROCEPHIN AND CEFEPIME - ADDED IV DOSE X 1 OF DIFLUCAN AND WILL CONTINUE WITH ORAL DIFLUCAN FOR 5 DAYS. - REPEAT CXR TOMORROW - PT HAS AN OVERALL POOR PROGNOSIS WITH SEPSIS AND RECURRENT AND ENLARGING LUNG CANCER WITH POSSIBLE METASTATIC DISEASE TO SPINE AND LARYNGEAL TISSUE. I DISCUSSED THE CASE WITH HER THAT SHE IS AT VERY HIGH RISK OF IN-HOSPITAL AND SHE UNDERSTANDS THIS IS POSSIBLE. - SHE WOULD LIKE TO THINK ABOUT HER OPTIONS. I HAVE INFORMED HER THAT WE CAN DO IN-HOSPITAL COMFORT CARE, OUT OF HOSPITAL COMFORT CARE/HOSPICE IN A CARE HOME. I DO NOT FEEL THAT DISCHARGE TO HER APARTMENT WOULD BE SAFE SINCE SHE DOES NOT HAVE FAMILY OR CLOSE FRIENDS WHO CAN CARE FOR HER IN HER HOME ENVIRONMENT AND SHE CANNOT AFFORD IN-HOME 24 HOUR CARE. CHEST XRAY IMPRESSION: 1: There is interval development of consolidation of the right lung base including the middle lobe. This may be related to pneumonia. Unable to determine if there is an underlying mass or other process. There is a suspected right pleural effusion. 2: The remainder of this exam shows no other acute process. CT OF HEAD/NECK/CERVICAL SPINE COMPARISON: Head CT with and without contrast dated 07/25/2019. Whole body PET/CT scan dated 07/26/2017. FINDINGS: Head and maxillofacial CT: There is no evidence of acute cerebral infarct, intracranial hemorrhage, or gross mass effect. There is diffuse brain parenchymal volume loss. There are subtle focal and patchy areas of low-density changes throughout white matter of both cerebral hemispheres likely representing chronic small vessel ischemic disease. There is normal hull-white matter distinction. There is no significant midline shift or herniation. There is no evidence of hydrocephalus. The basal cisterns are unremarkable. There is no skull or maxillofacial fracture. There is a small area of e xtracranial soft tissue swelling involving the left lateral aspect of the head/periorbital region. Orbits and globes are intact. Otherwise, the skull, extracranial soft tissue, and orbits are unremarkable. There is mild mucosal thickening involving the ethmoid sinus. Temporal bones show no significant abnormality. Cervical spine: There is no acute cervical spine fracture or dislocation. There are cervical spine vertebral body spurs and facet arthropathy. There are multiple lucent areas scattered throughout the visualized cervical spine. Unknown if this is related to osteopenia versus infiltrative process. There is no significant neck soft tissue abnormality. Partially visualized right pleural effusion. 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 This laryngocele measures roughly 1.3 cm x 1.8 cm in greatest axial dimension. There is an area of increased density involving the right piriform sinus measuring 7 mm x 6 mm, which has increased in size in the interim compared to the prior whole body PET/CT scan dated 07/26/2017. Previously this area was measured at 11 mm x 8 mm. This may represent a vallecular cyst. IMPRESSION: 1: There is no evidence of acute intracranial process. There is no intracranial hemorrhage. 2: There is a small area of extracranial soft tissue swelling involving the left lateral aspect of the head/left periorbital region. There is no skull or maxillofacial fracture. Globes and Orbits are otherwise unremarkable. 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 4: Partially visualized right pleural effusion. Chest x-ray, PA and lateral views would help better evaluate. 5: Multiple lucent areas involving the visualized cervical spine. Unknown if this related to osteopenia or infiltrative process. If these are not known findings, and there are is a history of Cancer, nonemergent MRI of the cervical spine with and without contrast would better evaluate. LUNG CANCER - PT IS CHANGING FROM DR. ALTAMIRANO TO DR. PLASENCIA - PT HAS RECEIVED CHEMOTHERAPY - IS CURRENTLY DISCUSSING POSSIBLE RETURN TO PALLIATIVE CHEMOTHERAPY CHRONIC ATRIAL FIBRILLATION - CURRENTLY WE ARE SUPPORTING HER WITH IV FLUIDS - WAIT ON CARDIOLOGY CONSULT AT THIS TIME SINCE ADINA IS LEANING TOWARD COMFORT CARE CORONARY ARTERY DISEASE - SUPPORTIVE CARE, HOLD ANTILIPEMIC AGENTS, PLAVIX RESTARTED CURRENT SMOKING/TOBACCO ABUSE - PT DOES NOT WANT A PATCH AT THIS TIME. FALLING EPISODES AT HOME DUE TO GENERALIZED WEAKNESS FRAIL, UNDERWEIGHT PT IS UNSAFE AT HOME DUE TO NO HELP AT HOME AND FALLING/FRAILTY DUE TO HER MALNOURISHMENT, METASTATIC CANCER, WILL NOT ORDER PHYSICAL THERAPY AT THIS TIME. LEUKOCYTOSIS AND ANEMIA - MONITOR LABS - WHITE COUNT SHOULD IMPROVE AND IS IMPROVING WITH FLUIDS AND ANTIBIOTICS. HYPOKALEMIA - REPLENISH IV TODAY AND ORALLY TOMORROW DVT PROPHYLAXIS WITH SCD'S AND LOVENOX GI PROPHYLAXIS WITH PPI AND PROBIOTICS. PT IS VERY FRAIL, HAS A VERY POOR OVERALL PROGNOSIS WITH A VERY HIGH RISK OF IN- HOSPITAL OR OUT OF HOSPITAL ON DISCHARGE. Admission Diagnosis SEPSIS HYPOTENSION LUNG CANCER OBSTRUCTIVE PNEUMONIA CHRONIC ATRIAL FIBRILLATION CORONARY ARTERY DISEASE CURRENT SMOKING/TOBACCO ABUSE FALLING EPISODES AT HOME GENERALIZED WEAKNESS LEUKOCYTOSIS ANEMIA HYPOKALEMIA FRAIL UNDERWEIGHT Admission Status: Inpatient Order (span 2 midnights) Reason for Inpatient Admission: INPT ADMISSION FOR SEPSIS, LUNG CANCER - WILL REQUIRE AT LEAST 72 HOURS IN HOSPITAL FOR STABILIZION AND PLACEMENT PLANS TO BE MADE RICKI SALCIDO MD Mar 27, 2021 09:54
[2021-03-27] MEDS ORDERED: FLUCONAZOLE 200 MG/100 ML 50 ML, SYRINGE-IVPB 1 SYRINGE IV ONE ×2 (10:00)
[2021-03-27] MEDS: ENOXAPARIN 40 MG/0.4 ML (LOVENOX) SYR SC SCH (10:07)
[2021-03-27] MEDS ORDERED: CLOP75TA28 PO (10:37)
[2021-03-27] MEDS ORDERED: ALPR0.254 PO (10:37)
[2021-03-27] MEDS ORDERED: LEVO88TA54 PO (10:37)
[2021-03-27] MEDS ORDERED: POTASSIUM CL 10MEQ/50ML IVPB 200 ML IV ONE (10:46)
[2021-03-27] MEDS: POTASSIUM CL 10MEQ/50ML IVPB 50 ML IV SCH ×4 (10:49→14:03)
[2021-03-27] MEDS: LACTOBACILLUS ACIDOPHILUS (PROBIOTIC) CAPSULE PO SCH ×2 (13:09→17:20)
[2021-03-27] MEDS: VANCOMYCIN 1 GM/NS 250 ML IVPB IV SCH ×2 (13:13)
[2021-03-27] MEDS: ALPRAZolam 0.25 MG (XANAX) TAB PO PRN (14:09)
[2021-03-28] MEDS ORDERED: FUROSEMIDE 40 MG/4 ML INJ (LASIX) IVP SCH (00:15)
[2021-03-28 03:40] VITALS: BP 89/54
[2021-03-28] MEDS: NS IV 1000 ML 1,000 ML IV SCH ×3 (06:10→20:34)
[2021-03-28] MEDS: CEFEPIME 1,000 MG/NS 50 ML IVPB IV SCH ×6 (06:10→20:33)
[2021-03-28] MEDS: LEVOTHYROXINE 75 MCG (LEVOTHROID) TABLET PO SCH (06:10)
[2021-03-28 06:21] LABS: BASOPHILS % (AUTO) 0 % (0-10); EOSINOPHILS % (AUTO) 0 % (0-10); HEMATOCRIT 31 % (35-52); HEMOGLOBIN 8.9 g/dL (11.5-16.0); LYMPHOCYTES % (AUTO) 7 % (12-44); MEAN CORPUSCULAR HEMOGLOBIN 24 pg (25-34); MEAN CORPUSCULAR HGB CONC 29 g/dL (32-36); MEAN CORPUSCULAR VOLUME 82 fL (80-99); MEAN PLATELET VOLUME 10.4 fL (9.0-12.2); MONOCYTES % (AUTO) 7 % (0-12); NEUTROPHILS % (AUTO) 86 % (42-75); PLATELET COUNT 217 10^3/uL (130-400); WHITE BLOOD COUNT 15.2 10^3/uL (4.3-11.0)
[2021-03-28 06:41] LABS: CALCIUM 7.9 MG/DL (8.5-10.1); CREATININE SERUM 0.62 MG/DL (0.60-1.30); MAGNESIUM 1.7 MG/DL (1.6-2.4)
[2021-03-28] MEDS: RT-ALBUTEROL SULF 2.5 MG/3 ML PRE-MIX VIAL INH SCH ×4 (07:18→21:07)
[2021-03-28 07:26] VITALS: BP 92/46
[2021-03-28] MEDS: NYSTATIN ORAL SUSP 5 ML UDC PO SCH ×4 (08:02→20:34)
[2021-03-28] MEDS: fluCOnazole (DIFLUCAN) 100 MG TAB PO SCH (08:02)
[2021-03-28] MEDS: CLOPIDOGREL 75 MG (PLAVIX) TABLET PO SCH (08:02)
[2021-03-28] MEDS: LACTOBACILLUS ACIDOPHILUS (PROBIOTIC) CAPSULE PO SCH ×3 (08:02→17:28)
[2021-03-28] MEDS: PANTOPRAZOLE 40 MG (PROTONIX) TAB PO SCH (08:02)
[2021-03-28] MEDS: KCL 20 MEQ TAB (K-DUR) PO SCH (08:02)
--- NOTE | 2021-03-28 08:58 | Diagnostic Imaging Report ---
INDICATION: Lung cancer, pneumonia. TIME OF EXAM: 8:40 AM CORRELATION is made with prior chest from 11/13/2019. The right hemidiaphragm is elevated. There is a moderate right pleural effusion and a small left effusion. There appears to be some infiltrate in both bases. Left sided chest wall port has tip at the SVC right atrial junction. No pneumothorax is seen. IMPRESSION: Bilateral effusions, greatest on the right, with bibasilar pulmonary infiltrates. Dictated by: Dictated on workstation # [id number]
[2021-03-28] MEDS ORDERED: PHARMACY TO DOSE SQ SCH (09:00)
--- NOTE | 2021-03-28 09:44 | Progress Note ---
Subjective Subjective Date Seen by Provider: Mar 28, 2021 Time Seen by Provider: 09:20 PT REPORTS THAT SHE IS FEELING POORLY, CONTINUES TO FEEL WEAK AND IS OVERALL NOT REALLY FEELING SIGNIFICANTLY IMPROVED. SHE REPORTS A LOW APPETITE. Review of Systems General: No Chills; Fatigue, Malaise, Appetite (DECREASED) HEENT: No Head Aches Pulmonary: Dyspnea, Cough Cardiovascular: No: Chest Pain, Palpitations Gastrointestinal: No: Nausea, Abdominal Pain Musculoskeletal: No: neck pain, back pain Neurological: Weakness; No: Confusion All Other Systems Reviewed All Other Systems Reviewed: Yes Objective Exam Vital Signs Vital Signs Date Time Temp Pulse Resp B/P (MAP) Pulse Ox O2 Delivery O2 Flow Rate FiO2 03/28/21 07:26 37.1 142 26 92/46 (61) 89 Nasal Cannula 6.00 03/28/21 07:19 92 Nasal Cannula 5.00 03/28/21 07:00 140 03/28/21 03:40 37.1 132 18 89/54 (66) 88 Nasal Cannula 6.00 03/28/21 01:00 150 03/28/21 00:07 Nasal Cannula 6.00 88 03/27/21 23:47 37.7 135 20 89/51 (64) 88 Nasal Cannula 6.00 03/27/21 22:04 92 Nasal Cannula 5.00 03/27/21 20:35 Nasal Cannula 4.00 03/27/21 20:08 38.2 134 23 92/51 (65) 87 Nasal Cannula 3.00 03/27/21 19:00 152 03/27/21 15:28 37.4 144 18 89/54 (66) 94 Nasal Cannula 3.00 03/27/21 12:17 121 03/27/21 11:35 37.6 122 18 88/52 (64) 94 Nasal Cannula 3.00 03/27/21 11:31 93 Nasal Cannula 3.00 I & O 03/28/21 07:00 Intake Total 3120 ml Output Total 1975 ml Balance 1145 ml General Appearance: WD/WN, Chronically ill, Thin Eyes: Bilateral Eye Normal Inspection, Bilateral Eye PERRL, Bilateral Eye EOMI HEENT: PERRL/EOMI, Other (SLIGHTLY HOARSE VOICE, THRUSH) Neck: Full Range of Motion, Normal Inspection, Non Tender, Supple Respiratory: Chest Non Tender, No Respiratory Distress, Decreased Breath Sounds Cardiovascular: Irregularly Irregular, Tachycardia Gastrointestinal: Normal Bowel Sounds, No Organomegaly, No Pulsatile Mass, Non Tender, Soft Rectal: Deferred Back: Normal Inspection Extremity: Normal Capillary Refill, Non Tender, No Calf Tenderness, No Pedal Edema Neurologic/Psychiatric: Alert, Oriented x3, No Motor/Sensory Deficits, Normal 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/Affect, 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 Norm as Tested Skin: Normal Color, Warm/Dry Lymphatic: No Adenopathy Results Lab Laboratory Tests 03/28/21 06:00: White Blood Count 15.2H, Red Blood Count 3.70L, Hemoglobin 8.9L, Hematocrit 31L, Mean Corpuscular Volume 82, Mean Corpuscular Hemoglobin 24L, Mean Corpuscular Hemoglobin Concent 29L, Red Cell Distribution Width 21.1H, Platelet Count 217, Mean Platelet Volume 10.4, Immature Granulocyte % (Auto) 1, Neutrophils (%) (Auto) 86H, Lymphocytes (%) (Auto) 7L, Monocytes (%) (Auto) 7, Eosinophils (%) (Auto) 0, Basophils (%) (Auto) 0, Neutrophils # (Auto) 13.0H, Lymphocytes # (Auto) 1.0, Monocytes # (Auto) 1.0, Eosinophils # (Auto) 0.0, Basophils # (Auto) 0.0, Immature Granulocyte # (Auto) 0.1, Sodium Level 141, Potassium Level 3.0L, Chloride Level 105, Carbon Dioxide Level 26, Anion Gap 10, Blood Urea Nitrogen 8, Creatinine 0.62, Estimat Glomerular Filtration Rate 87, BUN/Creatinine Ratio 13, Glucose Level 79, Calcium Level 7.9L, Magnesium Level 1.7 Microbiology 03/26/21 Urine Culture - Final, Complete NO GROWTH 03/26/21 Blood Culture - Preliminary, Resulted No growth 03/26/21 DANYELL Preparation - Final, Complete Assessment/Plan Assessment/Plan Admission Dx SEPSIS HYPOTENSION LUNG CANCER OBSTRUCTIVE PNEUMONIA CHRONIC ATRIAL FIBRILLATION CORONARY ARTERY DISEASE CURRENT SMOKING/TOBACCO ABUSE FALLING EPISODES AT HOME GENERALIZED WEAKNESS LEUKOCYTOSIS ANEMIA HYPOKALEMIA FRAIL UNDERWEIGHT Assessment and Plan SEPSIS HYPOTENSION LUNG CANCER OBSTRUCTIVE PNEUMONIA CHRONIC ATRIAL FIBRILLATION CORONARY ARTERY DISEASE CURRENT SMOKING/TOBACCO ABUSE FALLING EPISODES AT HOME GENERALIZED WEAKNESS LEUKOCYTOSIS ANEMIA HYPOKALEMIA FRAIL UNDERWEIGHT UNSAFE AT HOME DUE TO NO HELP AT HOME AND FALLING/FRAILTY SEPSIS WITH HYPOTENSION DUE TO OBSTRUCTIVE PNEUMONIA - PT HAS RECEIVED SEVERAL FLUID BOLUSES WITH SALINE AND IS CURRENTLY ON NS AT 150ML/HR - SUPPORTIVE CARE - IV ANTIBIOTICS - ROCEPHIN AND CEFEPIME - ADDED IV DOSE X 1 OF DIFLUCAN AND WILL CONTINUE WITH ORAL DIFLUCAN FOR 5 DAYS. - PT HAS AN OVERALL POOR PROGNOSIS WITH SEPSIS AND RECURRENT AND ENLARGING LUNG CANCER WITH POSSIBLE METASTATIC DISEASE TO SPINE AND LARYNGEAL TISSUE. I DISCUSSED THE CASE WITH HER THAT SHE IS AT VERY HIGH RISK OF IN-HOSPITAL AND SHE UNDERSTANDS THIS IS POSSIBLE. - SHE WOULD LIKE TO THINK ABOUT HER OPTIONS. I HAVE INFORMED HER THAT WE CAN DO IN-HOSPITAL COMFORT CARE, OUT OF HOSPITAL COMFORT CARE/HOSPICE IN A CORRECTION. I DO NOT FEEL THAT DISCHARGE TO HER APARTMENT WOULD BE SAFE SINCE SHE DOES NOT HAVE FAMILY OR CLOSE FRIENDS WHO CAN CARE FOR HER IN HER HOME ENVIRONMENT AND SHE CANNOT AFFORD IN-HOME 24 HOUR CARE. - PT'S FRIEND AND PAID CAREGIVER WAS PRESENT IN THE HOSPITAL TODAY - DISCUSSED WITH PT AND HER FRIEND - THIS IS A VERY TENUOUS SITUATION, ADINA IS DECLINING WITH MINIMAL POSSIBILITY OF TRUE RECOVERY EVEN IF GIVEN PALLIATIVE CHEMOTHERAPY, IT IS LIKELY TO HAVE RECURRENT INFECTIONS AND PHYSICAL DECLINE. ADINA IS GOING TO DISCUSS WITH HER COUSIN ABOUT HER OPTIONS. Date of Exam:03/28/21 CHEST PA/LAT (2 VIEW) INDICATION: Lung cancer, pneumonia. TIME OF EXAM: 8:40 AM CORRELATION is made with prior chest from 11/13/2019. The right hemidiaphragm is elevated. There is a moderate right pleural effusion and a small left effusion. There appears to be some infiltrate in both bases. Left sided chest wall port has tip at the SVC right atrial junction. No pneumothorax is seen. IMPRESSION: Bilateral effusions, greatest on the right, with bibasilar pulmonary infiltrates. LUNG CANCER - PT IS CHANGING FROM DR. ALTAMIRANO TO DR. PLASENCIA - PT HAS RECEIVED CHEMOTHERAPY - IS CURRENTLY DISCUSSING POSSIBLE RETURN TO PALLIATIVE CHEMOTHERAPY CHRONIC ATRIAL FIBRILLATION - CURRENTLY WE ARE SUPPORTING HER WITH IV FLUIDS - WAIT ON CARDIOLOGY CONSULT AT THIS TIME SINCE ADINA IS LEANING TOWARD COMFORT CARE CORONARY ARTERY DISEASE - SUPPORTIVE CARE, HOLD ANTILIPEMIC AGENTS, PLAVIX RESTARTED CURRENT SMOKING/TOBACCO ABUSE - PT DOES NOT WANT A PATCH AT THIS TIME. FALLING EPISODES AT HOME DUE TO GENERALIZED WEAKNESS FRAIL, UNDERWEIGHT PT IS UNSAFE AT HOME DUE TO NO HELP AT HOME AND FALLING/FRAILTY DUE TO HER MALNOURISHMENT, METASTATIC CANCER, WILL NOT ORDER PHYSICAL THERAPY AT THIS TIME. LEUKOCYTOSIS AND ANEMIA - MONITOR LABS - WHITE COUNT SHOULD IMPROVE AND IS IMPROVING WITH FLUIDS AND ANTIBIOTICS. HYPOKALEMIA - REPLENISH IV TODAY AND ORALLY TOMORROW DVT PROPHYLAXIS WITH SCD'S AND LOVENOX GI PROPHYLAXIS WITH PPI AND PROBIOTICS. PT IS VERY FRAIL, HAS A VERY POOR OVERALL PROGNOSIS WITH A VERY HIGH RISK OF IN- HOSPITAL OR OUT OF HOSPITAL ON DISCHARGE. Admission Dx SEPSIS HYPOTENSION LUNG CANCER OBSTRUCTIVE PNEUMONIA CHRONIC ATRIAL FIBRILLATION CORONARY ARTERY DISEASE CURRENT SMOKING/TOBACCO ABUSE FALLING EPISODES AT HOME GENERALIZED WEAKNESS LEUKOCYTOSIS ANEMIA HYPOKALEMIA FRAIL UNDERWEIGHT Clinical Quality Measures Admission Status Admission Dx SEPSIS HYPOTENSION LUNG CANCER OBSTRUCTIVE PNEUMONIA CHRONIC ATRIAL FIBRILLATION CORONARY ARTERY DISEASE CURRENT SMOKING/TOBACCO ABUSE FALLING EPISODES AT HOME GENERALIZED WEAKNESS LEUKOCYTOSIS ANEMIA HYPOKALEMIA FRAIL UNDERWEIGHT RICKI DOWNING MD Mar 28, 2021 09:44
[2021-03-28] MEDS: ENOXAPARIN 40 MG/0.4 ML (LOVENOX) SYR SC SCH (11:04)
[2021-03-28 11:24] VITALS: BP_SYST 78; BP_SYST 89; BP_DIAS 46; BP_DIAS 47
[2021-03-28] MEDS: ACETAMINOPHEN 325 MG TABLET PO PRN ×2 (11:56→20:33)
[2021-03-28] MEDS ORDERED: NS (IVPB) 250 ML ONE (14:45)
[2021-03-28] MEDS: VANCOMYCIN 1 GM/NS 250 ML IVPB IV SCH ×2 (14:47)
[2021-03-28 15:48] VITALS: BP 83/47
[2021-03-28 19:27] VITALS: BP 82/47
[2021-03-28] MEDS: ALPRAZolam 0.25 MG (XANAX) TAB PO PRN (20:33)
[2021-03-28 23:39] VITALS: BP 87/45
[2021-03-29 04:31] LABS: BASOPHILS % (AUTO) 0 % (0-10); EOSINOPHILS # (AUTO) 0.1 10^3/uL (0.0-0.3); EOSINOPHILS % (AUTO) 1 % (0-10); HEMATOCRIT 31 % (35-52); HEMOGLOBIN 9.1 g/dL (11.5-16.0); LYMPHOCYTES # (AUTO) 1.1 10^3/uL (1.0-4.0); LYMPHOCYTES % (AUTO) 8 % (12-44); MEAN CORPUSCULAR HEMOGLOBIN 24 pg (25-34); MEAN CORPUSCULAR HGB CONC 29 g/dL (32-36); MEAN CORPUSCULAR VOLUME 83 fL (80-99); MEAN PLATELET VOLUME 10.1 fL (9.0-12.2); MONOCYTES # (AUTO) 0.9 10^3/uL (0.0-1.0); MONOCYTES % (AUTO) 7 % (0-12); NEUTROPHILS # (AUTO) 10.6 10^3/uL (1.8-7.8); NEUTROPHILS % (AUTO) 83 % (42-75); PLATELET COUNT 198 10^3/uL (130-400); WHITE BLOOD COUNT 12.8 10^3/uL (4.3-11.0)
[2021-03-29 04:40] LABS: POTASSIUM 3.4 MMOL/L (3.6-5.0)
[2021-03-29 04:42] LABS: CALCIUM 8.3 MG/DL (8.5-10.1)
[2021-03-29 04:46] LABS: CREATININE SERUM 0.67 MG/DL (0.60-1.30)
[2021-03-29] MEDS: CEFEPIME 1,000 MG/NS 50 ML IVPB IV SCH ×6 (05:11→20:15)
[2021-03-29] MEDS: LEVOTHYROXINE 75 MCG (LEVOTHROID) TABLET PO SCH (05:11)
[2021-03-29] MEDS: KCL 20 MEQ TAB (K-DUR) PO SCH (05:12)
[2021-03-29] MEDS ORDERED: FUROSEMIDE 40 MG/4 ML INJ (LASIX) IVP ONE (05:30)
[2021-03-29] MEDS ORDERED: FUROSEMIDE 40 MG/4 ML INJ (LASIX) ONE (05:32)
[2021-03-29] MEDS: RT-ALBUTEROL SULF 2.5 MG/3 ML PRE-MIX VIAL INH SCH ×4 (07:13→21:34)
[2021-03-29 07:43] VITALS: BP 80/51
[2021-03-29] MEDS: LACTOBACILLUS ACIDOPHILUS (PROBIOTIC) CAPSULE PO SCH ×3 (08:05→17:36)
[2021-03-29] MEDS: CLOPIDOGREL 75 MG (PLAVIX) TABLET PO SCH (08:06)
[2021-03-29] MEDS: PANTOPRAZOLE 40 MG (PROTONIX) TAB PO SCH (08:06)
[2021-03-29] MEDS: fluCOnazole (DIFLUCAN) 100 MG TAB PO SCH (08:06)
[2021-03-29] MEDS: NYSTATIN ORAL SUSP 5 ML UDC PO SCH ×4 (08:06→20:14)
--- NOTE | 2021-03-29 11:20 | Progress Note ---
Subjective Subjective Date Seen by Provider: Mar 29, 2021 Time Seen by Provider: 09:00 PT REPORTS THAT SHE IS FEELING POORLY, CONTINUES TO FEEL WEAK AND IS OVERALL NOT REALLY FEELING SIGNIFICANTLY IMPROVED. SHE REPORTS A LOW APPETITE. STAFF REPORTS THAT PT REFUSED TO TALK TO HER FAMILY MEMBERS YESTERDAY WHEN THEY CALLED - THEY ARE APPARENTLY ON QUARANTINE FOR COVID AND COME OUT OF QUARANTINE TOMORROW. SHE STATES THAT SHE WILL TALK TO THEM WHEN THEY ARE OUT OF QUARANTINE Review of Systems General: No Chills; Fatigue, Malaise, Appetite (DECREASED) HEENT: No Head Aches Pulmonary: Dyspnea, Cough Cardiovascular: No: Chest Pain, Palpitations Gastrointestinal: No: Nausea, Abdominal Pain Musculoskeletal: No: neck pain, back pain Neurological: Weakness; No: Confusion All Other Systems Reviewed All Other Systems Reviewed: Yes Objective Exam Vital Signs Vital Signs Date Time Temp Pulse Resp B/P (MAP) Pulse Ox O2 Delivery O2 Flow Rate FiO2 03/29/21 10:38 94 Nasal Cannula 10.00 03/29/21 08:03 High Flow N/C 10.00 03/29/21 07:43 36.5 100 18 80/51 (61) 95 High Flow N/C 10.00 03/29/21 07:13 98 Nasal Cannula 10.00 03/29/21 07:00 145 03/29/21 06:27 92 High Flow N/C 10.00 03/29/21 01:00 137 03/28/21 23:39 36.2 128 24 87/45 (59) 90 Nasal Cannula 10.00 03/28/21 21:08 90 Nasal Cannula 6.00 03/28/21 20:00 Nasal Cannula 6.00 03/28/21 19:27 36.7 132 24 82/47 (59) 85 Nasal Cannula 6.50 03/28/21 19:00 139 03/28/21 15:48 37.0 120 22 83/47 (59) 89 Nasal Cannula 6.00 03/28/21 14:28 90 Nasal Cannula 5.00 03/28/21 12:28 126 03/28/21 11:24 37.4 119 24 89/46 (60) 93 Nasal Cannula 5.00 I & O 03/29/21 07:00 Intake Total 1055 ml Output Total 600 ml Balance 455 ml General Appearance: WD/WN, Chronically ill, Thin Eyes: Bilateral Eye Normal Inspection, Bilateral Eye PERRL, Bilateral Eye EOMI HEENT: PERRL/EOMI, Other (SLIGHTLY HOARSE VOICE, THRUSH) Neck: Full Range of Motion, Normal Inspection, Non Tender, Supple Respiratory: Chest Non Tender, No Respiratory Distress, Decreased Breath Sounds Cardiovascular: Irregularly Irregular, Tachycardia Gastrointestinal: Normal Bowel Sounds, No Organomegaly, No Pulsatile Mass, Non Tender, Soft Rectal: Deferred Back: Normal Inspection Extremity: Normal Capillary Refill, Non Tender, No Calf Tenderness, No Pedal Edema Neurologic/Psychiatric: Alert, Oriented x3, No Motor/Sensory Deficits, Normal 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/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, 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 Norm as Tested Skin: Normal Color, Warm/Dry Lymphatic: No Adenopathy Results Lab Laboratory Tests 03/29/21 04:24: White Blood Count 12.8H, Red Blood Count 3.78L, Hemoglobin 9.1L, Hematocrit 31L, Mean Corpuscular Volume 83, Mean Corpuscular Hemoglobin 24L, Mean Corpuscular Hemoglobin Concent 29L, Red Cell Distribution Width 21.2H, Platelet Count 198, Mean Platelet Volume 10.1, Immature Granulocyte % (Auto) 1, Neutrophils (%) (Auto) 83H, Lymphocytes (%) (Auto) 8L, Monocytes (%) (Auto) 7, Eosinophils (%) (Auto) 1, Basophils (%) (Auto) 0, Neutrophils # (Auto) 10.6H, Lymphocytes # (Auto) 1.1, Monocytes # (Auto) 0.9, Eosinophils # (Auto) 0.1, Basophils # (Auto) 0.0, Immature Granulocyte # (Auto) 0.1, Sodium Level 143, Potassium Level 3.4L, Chloride Level 107, Carbon Dioxide Level 26, Anion Gap 10, Blood Urea Nitrogen 14, Creatinine 0.67, Estimat Glomerular Filtration Rate 86, BUN/Creatinine Ratio 21, Glucose Level 121H, Calcium Level 8.3L Microbiology 03/26/21 Urine Culture - Final, Complete NO GROWTH 03/26/21 Blood Culture - Preliminary, Resulted No growth 03/26/21 DANYELL Preparation - Final, Complete Assessment/Plan Assessment/Plan Admission Dx SEPSIS HYPOTENSION LUNG CANCER OBSTRUCTIVE PNEUMONIA CHRONIC ATRIAL FIBRILLATION CORONARY ARTERY DISEASE CURRENT SMOKING/TOBACCO ABUSE FALLING EPISODES AT HOME GENERALIZED WEAKNESS LEUKOCYTOSIS ANEMIA HYPOKALEMIA FRAIL UNDERWEIGHT Assessment and Plan SEPSIS HYPOTENSION LUNG CANCER OBSTRUCTIVE PNEUMONIA CHRONIC ATRIAL FIBRILLATION CORONARY ARTERY DISEASE CURRENT SMOKING/TOBACCO ABUSE FALLING EPISODES AT HOME GENERALIZED WEAKNESS LEUKOCYTOSIS ANEMIA HYPOKALEMIA FRAIL UNDERWEIGHT UNSAFE AT HOME DUE TO NO HELP AT HOME AND FALLING/FRAILTY SEPSIS WITH HYPOTENSION DUE TO OBSTRUCTIVE PNEUMONIA - PT HAS RECEIVED SEVERAL FLUID BOLUSES WITH SALINE AND IS CURRENTLY ON NS AT 150ML/HR - SUPPORTIVE CARE - IV ANTIBIOTICS - ROCEPHIN AND CEFEPIME - ADDED IV DOSE X 1 OF DIFLUCAN AND WILL CONTINUE WITH ORAL DIFLUCAN FOR 5 DAYS. - PT HAS AN OVERALL POOR PROGNOSIS WITH SEPSIS AND RECURRENT AND ENLARGING LUNG CANCER WITH POSSIBLE METASTATIC DISEASE TO SPINE AND LARYNGEAL TISSUE. I DISCUSSED THE CASE WITH HER THAT SHE IS AT VERY HIGH RISK OF IN-HOSPITAL AND SHE UNDERSTANDS THIS IS POSSIBLE. - SHE WOULD LIKE TO THINK ABOUT HER OPTIONS. I HAVE INFORMED HER THAT WE CAN DO IN-HOSPITAL COMFORT CARE, OUT OF HOSPITAL COMFORT CARE/HOSPICE IN A INTERMEDIATE. I DO NOT FEEL THAT DISCHARGE TO HER APARTMENT WOULD BE SAFE SINCE SHE DOES NOT HAVE FAMILY OR CLOSE FRIENDS WHO CAN CARE FOR HER IN HER HOME ENVIRONMENT AND SHE CANNOT AFFORD IN-HOME 24 HOUR CARE. - PT'S FRIEND AND PAID CAREGIVER WAS PRESENT IN THE HOSPITAL TODAY - DISCUSSED WITH PT AND HER FRIEND - THIS IS A VERY TENUOUS SITUATION, AD[facility] IS DECLINING WITH MINIMAL POSSIBILITY OF TRUE RECOVERY EVEN IF GIVEN PALLIATIVE CHEMOTHERAPY, IT IS LIKELY TO HAVE RECURRENT INFECTIONS AND PHYSICAL DECLINE. ADINA IS GOING TO DISCUSS WITH HER COUSIN ABOUT HER OPTIONS. Date of Exam:03/28/21 CHEST PA/LAT (2 VIEW) INDICATION: Lung cancer, pneumonia. TIME OF EXAM: 8:40 AM CORRELATION is made with prior chest from 11/13/2019. The right hemidiaphragm is elevated. There is a moderate right pleural effusion and a small left effusion. There appears to be some infiltrate in both bases. Left sided chest wall port has tip at the SVC right atrial junction. No pneumothorax is seen. IMPRESSION: Bilateral effusions, greatest on the right, with bibasilar pulmonary infiltrates. LUNG CANCER - PT IS CHANGING FROM DR. ALTAMIRANO TO DR. PLASENCIA - PT HAS RECEIVED CHEMOTHERAPY - IS CURRENTLY DISCUSSING POSSIBLE RETURN TO PALLIATIVE CHEMOTHERAPY CHRONIC ATRIAL FIBRILLATION - CURRENTLY WE ARE SUPPORTING HER WITH IV FLUIDS - WAIT ON CARDIOLOGY CONSULT AT THIS TIME SINCE ADINA IS LEANING TOWARD COMFORT CARE CORONARY ARTERY DISEASE - SUPPORTIVE CARE, HOLD ANTILIPEMIC AGENTS, PLAVIX RESTARTED CURRENT SMOKING/TOBACCO ABUSE - PT DOES NOT WANT A PATCH AT THIS TIME. FALLING EPISODES AT HOME DUE TO GENERALIZED WEAKNESS FRAIL, UNDERWEIGHT PT IS UNSAFE AT HOME DUE TO NO HELP AT HOME AND FALLING/FRAILTY DUE TO HER MALNOURISHMENT, METASTATIC CANCER, WILL NOT ORDER PHYSICAL THERAPY AT THIS TIME. LEUKOCYTOSIS AND ANEMIA - MONITOR LABS - WHITE COUNT SHOULD IMPROVE AND IS IMPROVING WITH FLUIDS AND ANTIBIOTICS. HYPOKALEMIA - REPLENISH ORALLY DVT PROPHYLAXIS WITH SCD'S AND LOVENOX GI PROPHYLAXIS WITH PPI AND PROBIOTICS. PT IS VERY FRAIL, HAS A VERY POOR OVERALL PROGNOSIS WITH A VERY HIGH RISK OF IN- HOSPITAL OR OUT OF HOSPITAL ON DISCHARGE. Admission Dx SEPSIS HYPOTENSION LUNG CANCER OBSTRUCTIVE PNEUMONIA CHRONIC ATRIAL FIBRILLATION CORONARY ARTERY DISEASE CURRENT SMOKING/TOBACCO ABUSE FALLING EPISODES AT HOME GENERALIZED WEAKNESS LEUKOCYTOSIS ANEMIA HYPOKALEMIA FRAIL UNDERWEIGHT Clinical Quality Measures Admission Status Admission Dx SEPSIS HYPOTENSION LUNG CANCER OBSTRUCTIVE PNEUMONIA CHRONIC ATRIAL FIBRILLATION CORONARY ARTERY DISEASE CURRENT SMOKING/TOBACCO ABUSE FALLING EPISODES AT HOME GENERALIZED WEAKNESS LEUKOCYTOSIS ANEMIA HYPOKALEMIA FRAIL UNDERWEIGHT RICKI DOWNING MD Mar 29, 2021 11:20
[2021-03-29] MEDS: NS IV 1000 ML 1,000 ML IV SCH ×2 (11:27→16:16)
[2021-03-29] MEDS: ENOXAPARIN 40 MG/0.4 ML (LOVENOX) SYR SC SCH (11:29)
[2021-03-29 15:58] VITALS: BP 80/46
[2021-03-29] MEDS: ALPRAZolam 0.25 MG (XANAX) TAB PO PRN (20:14)
[2021-03-29] MEDS: ACETAMINOPHEN 325 MG TABLET PO PRN (20:14)
[2021-03-29 23:53] VITALS: BP 84/45
[2021-03-30] MEDS: NS IV 1000 ML 1,000 ML IV SCH ×2 (04:40→17:57)
[2021-03-30 04:43] LABS: BASOPHILS % (AUTO) 0 % (0-10); EOSINOPHILS # (AUTO) 0.2 10^3/uL (0.0-0.3); EOSINOPHILS % (AUTO) 1 % (0-10); HEMATOCRIT 32 % (35-52); HEMOGLOBIN 9.2 g/dL (11.5-16.0); LYMPHOCYTES % (AUTO) 8 % (12-44); MEAN CORPUSCULAR HEMOGLOBIN 24 pg (25-34); MEAN CORPUSCULAR HGB CONC 29 g/dL (32-36); MEAN CORPUSCULAR VOLUME 82 fL (80-99); MEAN PLATELET VOLUME 10.7 fL (9.0-12.2); MONOCYTES # (AUTO) 0.9 10^3/uL (0.0-1.0); MONOCYTES % (AUTO) 7 % (0-12); NEUTROPHILS % (AUTO) 84 % (42-75); PLATELET COUNT 200 10^3/uL (130-400); WHITE BLOOD COUNT 13.1 10^3/uL (4.3-11.0)
[2021-03-30 05:02] LABS: CALCIUM 8.1 MG/DL (8.5-10.1); CREATININE SERUM 0.7 MG/DL (0.60-1.30); POTASSIUM 3.1 MMOL/L (3.6-5.0)
[2021-03-30] MEDS: LEVOTHYROXINE 75 MCG (LEVOTHROID) TABLET PO SCH (05:57)
[2021-03-30] MEDS: CEFEPIME 1,000 MG/NS 50 ML IVPB IV SCH ×6 (05:57→22:49)
[2021-03-30 08:00] VITALS: BP 85/48
[2021-03-30] MEDS: PANTOPRAZOLE 40 MG (PROTONIX) TAB PO SCH (08:26)
[2021-03-30] MEDS: LACTOBACILLUS ACIDOPHILUS (PROBIOTIC) CAPSULE PO SCH ×3 (08:27→19:36)
[2021-03-30] MEDS: NYSTATIN ORAL SUSP 5 ML UDC PO SCH ×4 (08:27→21:09)
[2021-03-30] MEDS: CLOPIDOGREL 75 MG (PLAVIX) TABLET PO SCH (08:27)
[2021-03-30] MEDS: fluCOnazole (DIFLUCAN) 100 MG TAB PO SCH (08:27)
[2021-03-30] MEDS: RT-ALBUTEROL SULF 2.5 MG/3 ML PRE-MIX VIAL INH SCH ×4 (08:38→18:54)
--- NOTE | 2021-03-30 09:20 | Progress Note ---
Subjective Subjective Date Seen by Provider: Mar 30, 2021 Time Seen by Provider: 08:20 PT REPORTS THAT SHE IS FEELING POORLY, CONTINUES TO FEEL WEAK AND IS OVERALL NOT REALLY FEELING SIGNIFICANTLY IMPROVED. SHE REPORTS A LOW APPETITE. SHE REPORTS THAT SHE IS FATIGUED, ATE A LITTLE BETTER, AND SHE SLEPT FAIRLY WELL LAST NIGHT. Review of Systems General: No Chills; Fatigue, Malaise, Appetite HEENT: No Head Aches Pulmonary: Dyspnea, Cough Cardiovascular: No: Chest Pain, Palpitations Gastrointestinal: No: Nausea, Abdominal Pain Musculoskeletal: No: neck pain, back pain Neurological: Weakness; No: Confusion All Other Systems Reviewed All Other Systems Reviewed: Yes Objective Exam Vital Signs Vital Signs Date Time Temp Pulse Resp B/P (MAP) Pulse Ox O2 Delivery O2 Flow Rate FiO2 03/30/21 08:58 High Flow N/C 7.00 03/30/21 08:38 93 High Flow N/C 9.00 03/30/21 08:00 36.8 110 16 85/48 (60) 92 High Flow N/C 10.00 03/30/21 07:00 123 03/30/21 01:00 136 03/29/21 23:53 36.4 113 20 84/45 (58) 92 High Flow N/C 10.00 03/29/21 21:34 93 Nasal Cannula 10.00 03/29/21 20:00 High Flow N/C 9.00 03/29/21 19:00 133 03/29/21 15:58 36.3 122 20 80/46 (57) 99 High Flow N/C 10.00 03/29/21 12:50 130 03/29/21 10:38 94 Nasal Cannula 10.00 I & O 03/30/21 07:00 Intake Total 830 ml Output Total 4200 ml Balance -3370 ml General Appearance: WD/WN, Chronically ill, Thin Eyes: Bilateral Eye Normal Inspection, Bilateral Eye PERRL, Bilateral Eye EOMI HEENT: PERRL/EOMI, Other (SLIGHTLY HOARSE VOICE, THRUSH) Neck: Full Range of Motion, Normal Inspection, Non Tender, Supple Respiratory: Chest Non Tender, No Respiratory Distress, Decreased Breath Sounds Cardiovascular: Irregularly Irregular, Tachycardia Gastrointestinal: Normal Bowel Sounds, No Organomegaly, No Pulsatile Mass, Non Tender, Soft Rectal: Deferred Back: Normal Inspection Extremity: Normal Capillary Refill, Non Tender, No Calf Tenderness, No Pedal Edema Neurologic/Psychiatric: Alert, Oriented x3, No Motor/Sensory Deficits, Normal 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/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, 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 Norm as Tested Skin: Normal Color, Warm/Dry Lymphatic: No Adenopathy Results Lab Laboratory Tests 03/30/21 04:30: White Blood Count 13.1H, Red Blood Count 3.84, Hemoglobin 9.2L, Hematocrit 32L, Mean Corpuscular Volume 82, Mean Corpuscular Hemoglobin 24L, Mean Corpuscular Hemoglobin Concent 29L, Red Cell Distribution Width 21.1H, Platelet Count 200, Mean Platelet Volume 10.7, Immature Granulocyte % (Auto) 1, Neutrophils (%) (Auto) 84H, Lymphocytes (%) (Auto) 8L, Monocytes (%) (Auto) 7, Eosinophils (%) (Auto) 1, Basophils (%) (Auto) 0, Neutrophils # (Auto) 11.0H, Lymphocytes # (Auto) 1.0, Monocytes # (Auto) 0.9, Eosinophils # (Auto) 0.2, Basophils # (Auto) 0.0, Immature Granulocyte # (Auto) 0.1, Sodium Level 143, Potassium Level 3.1L, Chloride Level 101, Carbon Dioxide Level 32, Anion Gap 10, Blood Urea Nitrogen 16, Creatinine 0.70, Estimat Glomerular Filtration Rate 85, BUN/Creatinine Ratio 23, Glucose Level 90, Calcium Level 8.1L Microbiology 03/26/21 Urine Culture - Final, Complete NO GROWTH 03/26/21 Blood Culture - Preliminary, Resulted No growth 03/26/21 DANYELL Preparation - Final, Complete Assessment/Plan Assessment/Plan Admission Dx SEPSIS HYPOTENSION LUNG CANCER OBSTRUCTIVE PNEUMONIA CHRONIC ATRIAL FIBRILLATION CORONARY ARTERY DISEASE CURRENT SMOKING/TOBACCO ABUSE FALLING EPISODES AT HOME GENERALIZED WEAKNESS LEUKOCYTOSIS ANEMIA HYPOKALEMIA FRAIL UNDERWEIGHT Assessment and Plan SEPSIS HYPOTENSION LUNG CANCER OBSTRUCTIVE PNEUMONIA CHRONIC ATRIAL FIBRILLATION CORONARY ARTERY DISEASE CURRENT SMOKING/TOBACCO ABUSE FALLING EPISODES AT HOME GENERALIZED WEAKNESS LEUKOCYTOSIS ANEMIA HYPOKALEMIA FRAIL UNDERWEIGHT UNSAFE AT HOME DUE TO NO HELP AT HOME AND FALLING/FRAILTY SEPSIS WITH HYPOTENSION DUE TO OBSTRUCTIVE PNEUMONIA - PT HAS RECEIVED SEVERAL FLUID BOLUSES WITH SALINE AND IS CURRENTLY ON NS AT 150ML/HR - SUPPORTIVE CARE - IV ANTIBIOTICS - ROCEPHIN AND CEFEPIME - ADDED IV DOSE X 1 OF DIFLUCAN AND WILL CONTINUE WITH ORAL DIFLUCAN FOR 5 DAYS. - PT HAS AN OVERALL POOR PROGNOSIS WITH SEPSIS AND RECURRENT AND ENLARGING LUNG CANCER WITH POSSIBLE METASTATIC DISEASE TO SPINE AND LARYNGEAL TISSUE. I DISCUSSED THE CASE WITH HER THAT SHE IS AT VERY HIGH RISK OF IN-HOSPITAL AND SHE UNDERSTANDS THIS IS POSSIBLE. - SHE WOULD LIKE TO THINK ABOUT HER OPTIONS. I HAVE INFORMED HER THAT WE CAN DO IN-HOSPITAL COMFORT CARE, OUT OF HOSPITAL COMFORT CARE/HOSPICE IN A [facility]. I DO NOT FEEL THAT DISCHARGE TO HER APARTMENT WOULD BE SAFE SINCE SHE DOES NOT HAVE FAMILY OR CLOSE FRIENDS WHO CAN CARE FOR HER IN HER HOME ENVIRONMENT AND SHE CANNOT AFFORD IN-HOME 24 HOUR CARE. - PT'S FRIEND AND PAID CAREGIVER WAS PRESENT IN THE HOSPITAL TODAY - DISCUSSED WITH PT AND HER FRIEND - THIS IS A VERY TENUOUS SITUATION, ADINA IS DECLINING WITH MINIMAL POSSIBILITY OF TRUE RECOVERY EVEN IF GIVEN PALLIATIVE CHEMOTHERAPY, IT IS LIKELY TO HAVE RECURRENT INFECTIONS AND PHYSICAL DECLINE. ADINA IS GOING TO DISCUSS WITH HER COUSIN ABOUT HER OPTIONS. Date of Exam:03/28/21 CHEST PA/LAT (2 VIEW) INDICATION: Lung cancer, pneumonia. TIME OF EXAM: 8:40 AM CORRELATION is made with prior chest from 11/13/2019. The right hemidiaphragm is elevated. There is a moderate right pleural effusion and a small left effusion. There appears to be some infiltrate in both bases. Left sided chest wall port has tip at the SVC right atrial junction. No pneumothorax is seen. IMPRESSION: Bilateral effusions, greatest on the right, with bibasilar pulmonary infiltrates. LUNG CANCER - PT IS CHANGING FROM DR. ALTAMIRANO TO DR. PLASENCIA - PT HAS RECEIVED CHEMOTHERAPY - IS CURRENTLY DISCUSSING POSSIBLE RETURN TO PALLIATIVE CHEMOTHERAPY CHRONIC ATRIAL FIBRILLATION - CURRENTLY WE ARE SUPPORTING HER WITH IV FLUIDS - WAIT ON CARDIOLOGY CONSULT AT THIS TIME SINCE ADINA IS LEANING TOWARD COMFORT CARE CORONARY ARTERY DISEASE - SUPPORTIVE CARE, HOLD ANTILIPEMIC AGENTS, PLAVIX RESTARTED CURRENT SMOKING/TOBACCO ABUSE - PT DOES NOT WANT A PATCH AT THIS TIME. FALLING EPISODES AT HOME DUE TO GENERALIZED WEAKNESS FRAIL, UNDERWEIGHT PT IS UNSAFE AT HOME DUE TO NO HELP AT HOME AND FALLING/FRAILTY DUE TO HER MALNOURISHMENT, METASTATIC CANCER, WILL NOT ORDER PHYSICAL THERAPY AT THIS TIME. LEUKOCYTOSIS AND ANEMIA - MONITOR LABS - WHITE COUNT SHOULD IMPROVE AND IS IMPROVING WITH FLUIDS AND ANTIBIOTICS. HYPOKALEMIA - REPLENISH ORALLY DVT PROPHYLAXIS WITH SCD'S AND LOVENOX GI PROPHYLAXIS WITH PPI AND PROBIOTICS. PT IS VERY FRAIL, HAS A VERY POOR OVERALL PROGNOSIS WITH A VERY HIGH RISK OF IN- HOSPITAL OR OUT OF HOSPITAL ON DISCHARGE. I WAS ABLE TO GET AHOLD OF HER DPOA AND DISCUSSED HER CASE WITH HER FAMILY - THEY ARE IN AGREEMENT WITH HOSPICE IN THE [facility]. Admission Dx SEPSIS HYPOTENSION LUNG CANCER OBSTRUCTIVE PNEUMONIA CHRONIC ATRIAL FIBRILLATION CORONARY ARTERY DISEASE CURRENT SMOKING/TOBACCO ABUSE FALLING EPISODES AT HOME GENERALIZED WEAKNESS LEUKOCYTOSIS ANEMIA HYPOKALEMIA FRAIL UNDERWEIGHT Clinical Quality Measures Admission Status Admission Dx SEPSIS HYPOTENSION LUNG CANCER OBSTRUCTIVE PNEUMONIA CHRONIC ATRIAL FIBRILLATION CORONARY ARTERY DISEASE CURRENT SMOKING/TOBACCO ABUSE FALLING EPISODES AT HOME GENERALIZED WEAKNESS LEUKOCYTOSIS ANEMIA HYPOKALEMIA FRAIL UNDERWEIGHT RICKI DOWNING MD Mar 30, 2021 09:20
[2021-03-30] MEDS: ENOXAPARIN 40 MG/0.4 ML (LOVENOX) SYR SC SCH (11:38)
[2021-03-30] MEDS: ALPRAZolam 0.25 MG (XANAX) TAB PO PRN (15:35)
[2021-03-30 15:49] VITALS: BP 102/50
--- NOTE | 2021-03-30 17:34 | Physician Query Clarification ---
Physician Query-General Query to Physician: The medical record reflects the following clinical scenario: The patient, in the setting of History/Risk factors, Lung Cancer, Pneumonia, no home 02 prior to admission Clinical Findings SpO2 88% sat on room air, 93% on 2 L, RR 20-28, O2 sat 92% on 4L (P/F = 172), 87% on 3L (P/F=166) and 92% on 10L (P/F=89), Treatment Supplemental 02 up to 10L, Albuterol, IV Cefepime, Question: Do you agree with the impression of Acute Respiratory Failure with Hypoxia per Dr. Jenniffer Vo? 1. Yes; will document Acute Hypoxic Respiratory Failure, present on admission in the Progress Notes 2. No; will continue current documentation in the Progress Notes 3. Other; will document explanation of clinical findings 4. Clinically undetermined; no explanation for clinical findings Please clarify and document your clinical opinion in the Progress Notes and Discharge Summary including the definitive and/or presumptive diagnosis, (suspected or probable), related to the above clinical findings. Please include clinical findings supporting your diagnosis. In responding to this query, please exercise your independent professional judgment. The purpose of this communication is to more accurately reflect the complexity of your patients condition. The fact that a question is asked does not imply that any particular answer is desired or expected. Please remember a lack of response to the above will prompt a phone page by CDI/coding staff Thank you for timely response to this clarification. Nikki Vogel MSN, RN Clinical Property And Casualty Insurance Agent [phone] [email or web address] PHYSICIAN RESPONSE: Based on the clinical findings in the record, please respond to the query above on this document as an addendum. Physician Response: If you have questions please contact: Chief Construction Inspector: Ext: Thank you for your time and cooperation. Clinical Property And Casualty Insurance Agent/Chief Construction Inspector This is a permanent part of the medical record NIKKI VOGEL Mar 30, 2021 17:34
[2021-03-31] VITALS: BP 90/48
[2021-03-31 04:13] VITALS: BP 100/59
[2021-03-31] MEDS: ALPRAZolam 0.25 MG (XANAX) TAB PO PRN ×2 (04:18→20:11)
[2021-03-31] MEDS: ACETAMINOPHEN 325 MG TABLET PO PRN ×2 (04:18→20:11)
[2021-03-31] MEDS: NS IV 1000 ML 1,000 ML IV SCH ×3 (04:19→20:11)
[2021-03-31] MEDS: LEVOTHYROXINE 75 MCG (LEVOTHROID) TABLET PO SCH (05:37)
[2021-03-31] MEDS: CEFEPIME 1,000 MG/NS 50 ML IVPB IV SCH ×4 (05:37→14:57)
[2021-03-31 05:54] LABS: BASOPHILS # (AUTO) 0.1 10^3/uL (0.0-0.1); BASOPHILS % (AUTO) 1 % (0-10); EOSINOPHILS # (AUTO) 0.1 10^3/uL (0.0-0.3); EOSINOPHILS % (AUTO) 1 % (0-10); HEMATOCRIT 30 % (35-52); HEMOGLOBIN 8.9 g/dL (11.5-16.0); LYMPHOCYTES # (AUTO) 0.9 10^3/uL (1.0-4.0); LYMPHOCYTES % (AUTO) 8 % (12-44); MEAN CORPUSCULAR HEMOGLOBIN 24 pg (25-34); MEAN CORPUSCULAR HGB CONC 30 g/dL (32-36); MEAN CORPUSCULAR VOLUME 80 fL (80-99); MEAN PLATELET VOLUME 10.7 fL (9.0-12.2); MONOCYTES # (AUTO) 0.9 10^3/uL (0.0-1.0); MONOCYTES % (AUTO) 7 % (0-12); NEUTROPHILS # (AUTO) 10.3 10^3/uL (1.8-7.8); NEUTROPHILS % (AUTO) 83 % (42-75); PLATELET COUNT 205 10^3/uL (130-400); WHITE BLOOD COUNT 12.4 10^3/uL (4.3-11.0)
[2021-03-31 06:07] LABS: CALCIUM 7.7 MG/DL (8.5-10.1); CREATININE SERUM 0.59 MG/DL (0.60-1.30); POTASSIUM 2.9 MMOL/L (3.6-5.0)
[2021-03-31] MEDS: RT-ALBUTEROL SULF 2.5 MG/3 ML PRE-MIX VIAL INH SCH ×4 (07:30→19:03)
[2021-03-31 08:00] VITALS: BP 94/50
[2021-03-31] MEDS ORDERED: KCL 20 MEQ TAB (K-DUR) PO ONE (08:45)
[2021-03-31] MEDS: NYSTATIN ORAL SUSP 5 ML UDC PO SCH ×4 (09:10→20:12)
[2021-03-31] MEDS: CLOPIDOGREL 75 MG (PLAVIX) TABLET PO SCH (09:10)
[2021-03-31] MEDS: fluCOnazole (DIFLUCAN) 100 MG TAB PO SCH (09:10)
[2021-03-31] MEDS: LACTOBACILLUS ACIDOPHILUS (PROBIOTIC) CAPSULE PO SCH ×3 (09:10→16:57)
[2021-03-31] MEDS: PANTOPRAZOLE 40 MG (PROTONIX) TAB PO SCH (09:10)
--- NOTE | 2021-03-31 09:24 | Progress Note ---
Subjective Subjective Date Seen by Provider: Mar 31, 2021 Time Seen by Provider: 08:45 PT REPORTS THAT SHE IS FEELING POORLY, CONTINUES TO FEEL WEAK AND IS OVERALL NOT REALLY FEELING SIGNIFICANTLY IMPROVED. SHE REPORTS A LOW APPETITE - SHE ONLY ATE A FEW BITES OF HER BREAKFAST THIS MORNING. PT REPORTS THAT SHE THINKS THAT SHE IS A LITTLE STRONGER TODAY THAN YESTERDAY. SHE DID NOT SLEEP WELL LAST NIGHT. STAFF REPORTS HAVING TO INCREASE HER OXYGEN BACK UP TO 10 LITERS. Review of Systems General: No Chills; Fatigue, Malaise, Appetite (DECREASED) HEENT: No Head Aches Pulmonary: Dyspnea, Cough Cardiovascular: No: Chest Pain, Palpitations, Edema Gastrointestinal: No: Nausea, Abdominal Pain Musculoskeletal: No: neck pain, back pain Neurological: Weakness; No: Confusion All Other Systems Reviewed All Other Systems Reviewed: Yes Objective Exam Vital Signs Vital Signs Date Time Temp Pulse Resp B/P (MAP) Pulse Ox O2 Delivery O2 Flow Rate FiO2 03/31/21 08:00 36.1 123 16 94/50 (65) 94 High Flow N/C 6.50 03/31/21 07:35 94 High Flow N/C 10.00 03/31/21 07:30 86 High Flow N/C 7.00 03/31/21 07:00 129 03/31/21 05:37 37.2 03/31/21 04:18 37.8 03/31/21 04:13 37.6 119 22 100/59 (73) 90 6.50 03/31/21 01:00 138 03/31/21 00:00 37.6 134 28 90/48 (62) 95 High Flow N/C 5.00 03/30/21 21:05 High Flow N/C 5.00 03/30/21 19:00 125 03/30/21 18:54 93 High Flow N/C 5.00 03/30/21 15:49 37.4 133 28 102/50 (67) 97 High Flow N/C 5.00 03/30/21 15:14 91 High Flow N/C 5.00 03/30/21 13:00 110 03/30/21 11:14 95 5.00 03/30/21 11:12 95 High Flow N/C 7.00 I & O 03/31/21 07:00 Intake Total 2450 ml Output Total 1150 ml Balance 1300 ml General Appearance: WD/WN, Chronically ill, Thin Eyes: Bilateral Eye Normal Inspection, Bilateral Eye PERRL, Bilateral Eye EOMI HEENT: PERRL/EOMI, Other (SLIGHTLY HOARSE VOICE, THRUSH) Neck: Full Range of Motion, Normal Inspection, Non Tender, Supple Respiratory: Chest Non Tender, No Respiratory Distress, Decreased Breath Sounds Cardiovascular: Irregularly Irregular, Tachycardia Gastrointestinal: Normal Bowel Sounds, No Organomegaly, No Pulsatile Mass, Non Tender, Soft Rectal: Deferred Back: Normal Inspection Extremity: Normal Capillary Refill, Non Tender, No Calf Tenderness, No Pedal Edema Neurologic/Psychiatric: Alert, Oriented x3, No Motor/Sensory Deficits, Normal 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, 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 Norm as Tested Skin: Normal Color, Warm/Dry Lymphatic: No Adenopathy Results Lab Laboratory Tests 03/31/21 05:45: White Blood Count 12.4H, Red Blood Count 3.74L, Hemoglobin 8.9L, Hematocrit 30L, Mean Corpuscular Volume 80, Mean Corpuscular Hemoglobin 24L, Mean Corpuscular Hemoglobin Concent 30L, Red Cell Distribution Width 21.0H, Platelet Count 205, Mean Platelet Volume 10.7, Immature Granulocyte % (Auto) 1, Neutrophils (%) (Auto) 83H, Lymphocytes (%) (Auto) 8L, Monocytes (%) (Auto) 7, Eosinophils (%) (Auto) 1, Basophils (%) (Auto) 1, Neutrophils # (Auto) 10.3H, Lymphocytes # (Auto) 0.9L, Monocytes # (Auto) 0.9, Eosinophils # (Auto) 0.1, Basophils # (Auto) 0.1, Immature Granulocyte # (Auto) 0.1, Sodium Level 141, Potassium Level 2.9L, Chloride Level 101, Carbon Dioxide Level 30, Anion Gap 10, Blood Urea Nitrogen 12, Creatinine 0.59L, Estimat Glomerular Filtration Rate 88, BUN/Creatinine Ratio 20, Glucose Level 90, Calcium Level 7.7L Microbiology 03/26/21 Urine Culture - Final, Complete NO GROWTH 03/26/21 Blood Culture - Preliminary, Resulted No growth 03/26/21 DANYELL Preparation - Final, Complete Assessment/Plan Assessment/Plan Admission Dx SEPSIS HYPOTENSION LUNG CANCER OBSTRUCTIVE PNEUMONIA CHRONIC ATRIAL FIBRILLATION CORONARY ARTERY DISEASE CURRENT SMOKING/TOBACCO ABUSE FALLING EPISODES AT HOME GENERALIZED WEAKNESS LEUKOCYTOSIS ANEMIA HYPOKALEMIA FRAIL UNDERWEIGHT Assessment and Plan SEPSIS HYPOTENSION LUNG CANCER OBSTRUCTIVE PNEUMONIA CHRONIC ATRIAL FIBRILLATION CORONARY ARTERY DISEASE CURRENT SMOKING/TOBACCO ABUSE FALLING EPISODES AT HOME GENERALIZED WEAKNESS LEUKOCYTOSIS ANEMIA HYPOKALEMIA FRAIL UNDERWEIGHT UNSAFE AT HOME DUE TO NO HELP AT HOME AND FALLING/FRAILTY SEPSIS WITH HYPOTENSION DUE TO OBSTRUCTIVE PNEUMONIA - PT HAS RECEIVED SEVERAL FLUID BOLUSES WITH SALINE AND IS CURRENTLY ON NS AT 150ML/HR - SUPPORTIVE CARE - IV ANTIBIOTICS - ROCEPHIN AND CEFEPIME - ADDED IV DOSE X 1 OF DIFLUCAN AND WILL CONTINUE WITH ORAL DIFLUCAN FOR 5 DAYS. - PT HAS AN OVERALL POOR PROGNOSIS WITH SEPSIS AND RECURRENT AND ENLARGING LUNG CANCER WITH POSSIBLE METASTATIC DISEASE TO SPINE AND LARYNGEAL TISSUE. I DISCUSSED THE CASE WITH HER THAT SHE IS AT VERY HIGH RISK OF IN-HOSPITAL AND SHE UNDERSTANDS THIS IS POSSIBLE. I ALSO DISCUSSED WITH PT'S COUSIN ON 03/30/2021 - AND LARD BLEACHER ON 03/31/2021 - PLAN WILL BE COVID TESTING (WAS NEGATIVE ON ADMISSION) AND TRANSFER FROM HOSPITAL TO RESIDENTIAL TUESDAY OR TUESDAY. LUNG CANCER - PT IS CHANGING FROM DR. ALTAMIRANO TO DR. PLASENCIA - PT HAS RECEIVED CHEMOTHERAPY - IS CURRENTLY DISCUSSING POSSIBLE RETURN TO PALLIATIVE CHEMOTHERAPY CHRONIC ATRIAL FIBRILLATION - CURRENTLY WE ARE SUPPORTING HER WITH IV FLUIDS - WAIT ON CARDIOLOGY CONSULT AT THIS TIME SINCE [facility] IS LEANING TOWARD COMFORT CARE/HOSPICE CORONARY ARTERY DISEASE - SUPPORTIVE CARE, HOLD ANTILIPEMIC AGENTS, PLAVIX RESTARTED FALLING EPISODES AT HOME DUE TO GENERALIZED WEAKNESS FRAIL, UNDERWEIGHT PT IS UNSAFE AT HOME DUE TO NO HELP AT HOME AND FALLING/FRAILTY DUE TO HER MALNOURISHMENT, METASTATIC CANCER, WILL NOT ORDER PHYSICAL THERAPY AT THIS TIME. LEUKOCYTOSIS AND ANEMIA - MONITOR LABS - WHITE COUNT SHOULD IMPROVE AND IS IMPROVING WITH FLUIDS AND ANTIBIOTICS. HYPOKALEMIA - REPLENISH ORALLY DVT PROPHYLAXIS WITH SCD'S AND LOVENOX GI PROPHYLAXIS WITH PPI AND PROBIOTICS. PT IS VERY FRAIL, HAS A VERY POOR OVERALL PROGNOSIS WITH A VERY HIGH RISK OF IN- HOSPITAL OR OUT OF HOSPITAL ON DISCHARGE. I WAS ABLE TO GET AHOLD OF HER DPOA AND DISCUSSED HER CASE WITH HER FAMILY - THEY ARE IN AGREEMENT WITH HOSPICE IN THE [facility]IDENTIAL. Admission Dx SEPSIS HYPOTENSION LUNG CANCER OBSTRUCTIVE PNEUMONIA CHRONIC ATRIAL FIBRILLATION CORONARY ARTERY DISEASE CURRENT SMOKING/TOBACCO ABUSE FALLING EPISODES AT HOME GENERALIZED WEAKNESS LEUKOCYTOSIS ANEMIA HYPOKALEMIA FRAIL UNDERWEIGHT Clinical Quality Measures Admission Status Admission Dx SEPSIS HYPOTENSION LUNG CANCER OBSTRUCTIVE PNEUMONIA CHRONIC ATRIAL FIBRILLATION CORONARY ARTERY DISEASE CURRENT SMOKING/TOBACCO ABUSE FALLING EPISODES AT HOME GENERALIZED WEAKNESS LEUKOCYTOSIS ANEMIA HYPOKALEMIA FRAIL UNDERWEIGHT RICKI DOWNING MD Mar 31, 2021 09:23
[2021-03-31 10:39] VITALS: BP 94/50
[2021-03-31] MEDS: ENOXAPARIN 40 MG/0.4 ML (LOVENOX) SYR SC SCH (11:15)
[2021-03-31 16:00] VITALS: BP 90/51
[2021-03-31 23:24] VITALS: BP 88/52
[2021-04-01 04:26] LABS: BASOPHILS # (AUTO) 0.1 10^3/uL (0.0-0.1); BASOPHILS % (AUTO) 1 % (0-10); EOSINOPHILS # (AUTO) 0.1 10^3/uL (0.0-0.3); EOSINOPHILS % (AUTO) 1 % (0-10); HEMATOCRIT 31 % (35-52); LYMPHOCYTES # (AUTO) 1.1 10^3/uL (1.0-4.0); LYMPHOCYTES % (AUTO) 10 % (12-44); MEAN CORPUSCULAR HEMOGLOBIN 24 pg (25-34); MEAN CORPUSCULAR HGB CONC 29 g/dL (32-36); MEAN CORPUSCULAR VOLUME 81 fL (80-99); MEAN PLATELET VOLUME 10.8 fL (9.0-12.2); MONOCYTES # (AUTO) 0.8 10^3/uL (0.0-1.0); MONOCYTES % (AUTO) 8 % (0-12); NEUTROPHILS # (AUTO) 8.6 10^3/uL (1.8-7.8); NEUTROPHILS % (AUTO) 80 % (42-75); PLATELET COUNT 207 10^3/uL (130-400); WHITE BLOOD COUNT 10.8 10^3/uL (4.3-11.0)
[2021-04-01 04:41] LABS: POTASSIUM 3.3 MMOL/L (3.6-5.0)
[2021-04-01 04:42] LABS: CALCIUM 8.1 MG/DL (8.5-10.1)
[2021-04-01 04:46] LABS: CREATININE SERUM 0.59 MG/DL (0.60-1.30)
[2021-04-01] MEDS: LEVOTHYROXINE 75 MCG (LEVOTHROID) TABLET PO SCH (05:36)
[2021-04-01] MEDS ORDERED: KCL 20 MEQ TAB (K-DUR) PO SCH (07:00)
[2021-04-01 07:21] VITALS: BP 109/65
[2021-04-01] MEDS: RT-ALBUTEROL SULF 2.5 MG/3 ML PRE-MIX VIAL INH SCH ×4 (07:40→19:47)
[2021-04-01] MEDS: CLOPIDOGREL 75 MG (PLAVIX) TABLET PO SCH (08:30)
[2021-04-01] MEDS: fluCOnazole (DIFLUCAN) 100 MG TAB PO SCH (08:30)
[2021-04-01] MEDS: NYSTATIN ORAL SUSP 5 ML UDC PO SCH ×4 (08:30→19:34)
[2021-04-01] MEDS: PANTOPRAZOLE 40 MG (PROTONIX) TAB PO SCH (08:30)
[2021-04-01] MEDS: LACTOBACILLUS ACIDOPHILUS (PROBIOTIC) CAPSULE PO SCH ×3 (08:30→18:07)
--- NOTE | 2021-04-01 09:06 | Progress Note ---
Subjective Subjective PT REPORTS THAT SHE IS FEELING POORLY, CONTINUES TO FEEL WEAK AND IS OVERALL NOT REALLY FEELING SIGNIFICANTLY IMPROVED. SHE REPORTS A LOW APPETITE - SHE ONLY ATE A FEW BITES OF HER BREAKFAST THIS MORNING. PT REPORTS THAT SHE THINKS THAT SHE IS A LITTLE STRONGER TODAY THAN YESTERDAY. SHE DID NOT SLEEP WELL LAST NIGHT. STAFF REPORTS HAVING TO INCREASE HER OXYGEN BACK UP TO 10 LITERS. Review of Systems General: No Chills; Fatigue, Malaise, Appetite (DECREASED) HEENT: No Head Aches Pulmonary: Dyspnea, Cough Cardiovascular: No: Chest Pain, Palpitations, Edema Gastrointestinal: No: Nausea, Abdominal Pain Musculoskeletal: No: neck pain, back pain Neurological: Weakness; No: Confusion All Other Systems Reviewed All Other Systems Reviewed: Yes Objective Exam Vital Signs Vital Signs Date Time Temp Pulse Resp B/P (MAP) Pulse Ox O2 Delivery O2 Flow Rate FiO2 04/01/21 07:45 High Flow N/C 8.00 04/01/21 07:40 98 High Flow N/C 10.00 04/01/21 07:21 133 24 109/65 (80) 100 High Flow N/C 10.00 04/01/21 07:15 155 04/01/21 01:00 120 03/31/21 23:24 36.2 125 18 88/52 (64) 95 High Flow N/C 10.00 03/31/21 20:29 High Flow N/C 6.00 03/31/21 19:03 92 High Flow N/C 10.00 03/31/21 19:00 120 03/31/21 16:00 36.1 136 18 90/51 (64) 96 High Flow N/C 5.00 03/31/21 15:24 93 High Flow N/C 10.00 03/31/21 12:30 127 03/31/21 10:39 94 High Flow N/C 10.00 03/31/21 10:39 36.1 125 94 10 I & O 04/01/21 07:00 Intake Total 960 ml Output Total 650 ml Balance 310 ml General Appearance: WD/WN, Chronically ill, Thin Eyes: Bilateral Eye Normal Inspection, Bilateral Eye PERRL, Bilateral Eye EOMI HEENT: PERRL/EOMI, Other (SLIGHTLY HOARSE VOICE, THRUSH) Neck: Full Range of Motion, Normal Inspection, Non Tender, Supple Respiratory: Chest Non Tender, No Respiratory Distress, Decreased Breath Sounds Cardiovascular: Irregularly Irregular, Tachycardia Gastrointestinal: Normal Bowel Sounds, No Organomegaly, No Pulsatile Mass, Non Tender, Soft Rectal: Deferred Back: Normal Inspection Extremity: Normal Capillary Refill, Non Tender, No Calf Tenderness, No Pedal Edema Neurologic/Psychiatric: Alert, Oriented x3, No Motor/Sensory Deficits, Normal 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, 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 Norm as Tested Skin: Normal Color, Warm/Dry Lymphatic: No Adenopathy Results Lab Laboratory Tests 04/01/21 04:15: White Blood Count 10.8, Red Blood Count 3.80, Hemoglobin 9.0L, Hematocrit 31L, Mean Corpuscular Volume 81, Mean Corpuscular Hemoglobin 24L, Mean Corpuscular Hemoglobin Concent 29L, Red Cell Distribution Width 21.7H, Platelet Count 207, Mean Platelet Volume 10.8, Immature Granulocyte % (Auto) 1, Neutrophils (%) (Au to) 80H, Lymphocytes (%) (Auto) 10L, Monocytes (%) (Auto) 8, Eosinophils (%) (Auto) 1, Basophils (%) (Auto) 1, Neutrophils # (Auto) 8.6H, Lymphocytes # (Auto) 1.1, Monocytes # (Auto) 0.8, Eosinophils # (Auto) 0.1, Basophils # (Auto) 0.1, Immature Granulocyte # (Auto) 0.1, Sodium Level 142, Potassium Level 3.3L, Chloride Level 103, Carbon Dioxide Level 31, Anion Gap 8, Blood Urea Nitrogen 12, Creatinine 0.59L, Estimat Glomerular Filtration Rate 88, BUN/Creatinine Ratio 20, Glucose Level 97, Calcium Level 8.1L Microbiology 03/26/21 Urine Culture - Final, Complete NO GROWTH 03/26/21 Blood Culture - Preliminary, Resulted No growth 03/26/21 DANYELL Preparation - Final, Complete Assessment/Plan Assessment/Plan Admission Dx SEPSIS HYPOTENSION LUNG CANCER OBSTRUCTIVE PNEUMONIA CHRONIC ATRIAL FIBRILLATION CORONARY ARTERY DISEASE CURRENT SMOKING/TOBACCO ABUSE FALLING EPISODES AT HOME GENERALIZED WEAKNESS LEUKOCYTOSIS ANEMIA HYPOKALEMIA FRAIL UNDERWEIGHT Assessment and Plan SEPSIS HYPOTENSION LUNG CANCER OBSTRUCTIVE PNEUMONIA CHRONIC ATRIAL FIBRILLATION CORONARY ARTERY DISEASE CURRENT SMOKING/TOBACCO ABUSE FALLING EPISODES AT HOME GENERALIZED WEAKNESS LEUKOCYTOSIS ANEMIA HYPOKALEMIA FRAIL UNDERWEIGHT UNSAFE AT HOME DUE TO NO HELP AT HOME AND FALLING/FRAILTY SEPSIS WITH HYPOTENSION DUE TO OBSTRUCTIVE PNEUMONIA - PT HAS RECEIVED SEVERAL FLUID BOLUSES WITH SALINE AND IS CURRENTLY ON NS AT 150ML/HR - SUPPORTIVE CARE - IV ANTIBIOTICS - ROCEPHIN AND CEFEPIME - ADDED IV DOSE X 1 OF DIFLUCAN AND WILL CONTINUE WITH ORAL DIFLUCAN FOR 5 DAYS. - PT HAS AN OVERALL POOR PROGNOSIS WITH SEPSIS AND RECURRENT AND ENLARGING LUNG CANCER WITH POSSIBLE METASTATIC DISEASE TO SPINE AND LARYNGEAL TISSUE. I DISCUSSED THE CASE WITH HER THAT SHE IS AT VERY HIGH RISK OF IN-HOSPITAL AND SHE UNDERSTANDS THIS IS POSSIBLE. I ALSO DISCUSSED WITH PT'S COUSIN ON 03/30/2021 - AND HOSPITAL PERSONNEL DIRECTOR ON 03/31/2021 - PLAN WILL BE COVID TESTING (WAS NEGATIVE ON ADMISSION) AND TRANSFER FROM HOSPITAL TO HALF-WAY TUESDAY OR TUESDAY. LUNG CANCER - PT IS CHANGING FROM DR. ALTAMIRANO TO DR. PLASENCIA - PT HAS RECEIVED CHEMOTHERAPY - IS CURRENTLY DISCUSSING POSSIBLE RETURN TO PALLIATIVE CHEMOTHERAPY CHRONIC ATRIAL FIBRILLATION - CURRENTLY WE ARE SUPPORTING HER WITH IV FLUIDS - WAIT ON CARDIOLOGY CONSULT AT THIS TIME SINCE [facility] IS LEANING TOWARD COMFORT CARE/HOSPICE CORONARY ARTERY DISEASE - SUPPORTIVE CARE, HOLD ANTILIPEMIC AGENTS, PLAVIX RESTARTED FALLING EPISODES AT HOME DUE TO GENERALIZED WEAKNESS FRAIL, UNDERWEIGHT PT IS UNSAFE AT HOME DUE TO NO HELP AT HOME AND FALLING/FRAILTY DUE TO HER MALNOURISHMENT, METASTATIC CANCER, WILL NOT ORDER PHYSICAL THERAPY AT THIS TIME. LEUKOCYTOSIS AND ANEMIA - MONITOR LABS - WHITE COUNT SHOULD IMPROVE AND IS IMPROVING WITH FLUIDS AND ANTIBIOTICS. HYPOKALEMIA - REPLENISH ORALLY DVT PROPHYLAXIS WITH SCD'S AND LOVENOX GI PROPHYLAXIS WITH PPI AND PROBIOTICS. PT IS VERY FRAIL, HAS A VERY POOR OVERALL PROGNOSIS WITH A VERY HIGH RISK OF IN- HOSPITAL OR OUT OF HOSPITAL ON DISCHARGE. I WAS ABLE TO GET AHOLD OF HER DPOA AND DISCUSSED HER CASE WITH HER FAMILY - THEY ARE IN AGREEMENT WITH HOSPICE IN THE HALF-WAY. Admission Dx SEPSIS HYPOTENSION LUNG CANCER OBSTRUCTIVE PNEUMONIA CHRONIC ATRIAL FIBRILLATION CORONARY ARTERY DISEASE CURRENT SMOKING/TOBACCO ABUSE FALLING EPISODES AT HOME GENERALIZED WEAKNESS LEUKOCYTOSIS ANEMIA HYPOKALEMIA FRAIL UNDERWEIGHT Clinical Quality Measures Admission Status Admission Dx SEPSIS HYPOTENSION LUNG CANCER OBSTRUCTIVE PNEUMONIA CHRONIC ATRIAL FIBRILLATION CORONARY ARTERY DISEASE CURRENT SMOKING/TOBACCO ABUSE FALLING EPISODES AT HOME GENERALIZED WEAKNESS LEUKOCYTOSIS ANEMIA HYPOKALEMIA FRAIL UNDERWEIGHT RICKI DOWNING MD Apr 01, 2021 09:06
[2021-04-01] MEDS ORDERED: dilTIAZem120 MG (CARDIZEM CD) CAP PO SCH (09:30)
--- NOTE | 2021-04-01 10:46 | Physical Therapy Evaluation ---
PT Evaluation-General Medical Diagnosis Admission Date Mar 26, 2021 at 14:45 Medical Diagnosis: sepsis, CA Onset Date: Mar 26, 2021 Therapy Diagnosis Therapy Diagnosis: impaired mobility, strength Height/Weight Height (Feet): 5 Height (Inches): 6.00 Weight (Pounds): 132 Weight (Ounces): 4.0 Precautions Precautions/Isolations: Fall Prevention, Standard Precautions, Pressure Ulcer Referral Physician: Loly Reason for Referral: Evaluation/Treatment Medical History Additional Medical History Past Medical History Surgeries: Hysterectomy, Lumpectomy COPD Hypertension Sexually Transmitted Disease: No HIV/AIDS: No Chronic Constipation Arthritis Lung, Breast What Type of Treatment Did You: Chemotherapy, Radiation Anxiety Blood Disorders: No Reviewed History: Yes Social History Home: Single Level Current Living Status: Alone Entry Into Home: Stairs Without Railing PT Steps Into Home: 1 Prior Prior Level of Function SCALE: Activities may be completed with or without assistive devices. 6-[id number]-[id number] completes the activity by him/herself with no assistance from a helper. 5-Set-up or Clean-up Assistance-helper sets up or cleans up; patient completes activity. [place] assists only prior to or following the activity. 4-Supervision or Touching Assistance-helper provides verbal cues and/or touching/steadying and/or contact guard assistance as patient completes activity. Assistance may be provided throughout the activity or intermittently. 3-Partial/Moderate Assistance-helper does LESS THAN HALF the effort. [place] lifts, holds or supports trunk or limbs, but provides less than half the effort. 2-Substantial/Maximal Assistance-helper does MORE THAN HALF the effort. [place] lifts or holds trunk or limbs and provides more than half the effort. 1-[id number]-xritsn does ALL the effort. Patient does none of the effort to complete the activity. Or, the assistance of 2 or more helpers is required for the patient to complete the activity. If activity was not attempted, code reason: 7-Patient Refused. 9-Not Applicable-not attempted and the patient did not perform the activity before the current illness, exacerbation or injury. 10-Not Attempted due to Environmental Limitations-(lack of equipment, weather restraints, etc.). 88-Not Attempted due to Medical Conditions or Safety Concerns. Bed Mobility: 6 Transfers (B,C,W/C): 6 Gait: 6 Stairs: 6 Indoor Mobility (Ambulation): Independent Prior Devices Use: Walker PT Evaluation-Current Subjective Patient in bed pre tx, agrees to PT, has no complaints of pain. Pt/Family Goals "to get stronger and walk" Objective Patient Orientation: Person, Place, Situation Attachments: Oxygen, Vinson Catheter, IV ROM/Strength ROM Lower Extremities WNL Strength Lower Extremities LLE (hip flexion 3/5, knee flexion 2/5, knee extension 2/5, dorsiflexion 3/5), RLE (hip flexion 3/5, knee flexion 2/5, knee extension 2/5, dorsiflexion 3/5) Sensory Hearing: Functional Sensation Right Lower Extremit: Intact Sensation Left Lower Extremity: Intact Transfers Roll Left to Right (QC): 3 Sit to Lying (QC): 3 Lying to Sitting/Side of Bed(Q: 3 Patient needed mod assist to sit to the side of the bed, her O2 dropped into the mid 80's but came back up with purse lip breathing, nurse also comes in and turns her O2 from 8L to 9L. Patient can sit for a few minutes before needing to lay back down. Patient states she doesn't feel like she can stand and based on her manual muscle testing this is probably accurate. After laying back down she says she needs to use the bedpan. Bedpan is placed. Her O2 again goes into the mid to low 80's and takes a couple of minutes to come back up with purse lip breathing, also it helped to raise the head of her bed a little more. Nurse notified that patient is on bedpan. Also patient's HR varied from 130bpm to about 158 bpm and it didn't really matter if she was moving or not. Balance Sitting Static: Fair Sitting Dynamic: Fair Assessment/Needs Patient in bed post tx with nurse call, phone, tray, all needs met. Patient has impaired mobility, strength, endurance. She needs mod assist for supine <-> sit but her legs are too weak to stand at this time. Rehab Potential: Guarded PT [place] Ro[place]er Goals [place] Ro[place] Goals PT Halfway Goals Time Frame: Apr 08, 2021 Roll Left & Right (QC): 4 Sit to Lying (QC): 3 (Sharee) Lying-Sitting on Side/Bed(QC): 3 (Sharee) Sit to Stand (QC): 3 (modA) Chair/Fax-bl-Orhya Xfer(QC): 3 (modA) PT Plan Problem List Problem List: Activity Tolerance, Functional Strength, Safety, Balance, Gait, Transfer, Bed Mobility, ROM Treatment/Plan Treatment Plan: Continue Plan of Care Treatment Plan: Bed Mobility, Education, Functional Activity Benjamin, Functional Strength, Gait, Safety, Therapeutic Exercise, Transfers Treatment Duration: Apr 08, 2021 Frequency: 6 times per week Estimated Hrs Per Day: .25 hour per day Patient and/or Family Agrees t: Yes Safety Risks/Education Patient Education: Correct Positioning, Safety Issues Teaching Recipient: Patient Teaching Methods: Demonstration, Discussion Response to Teaching: Reinforcement Needed Discharge Recommendations Plan Patient will perform bed mobility and transfer training, balance and endurance training, functional strengthening, gait training, and education, to improve functional mobility and independence at home. Therapy Discharge Recommendati: 24 Hour Supervision, Post Acute PT Time/GCodes Time In: 1008 Time Out: 1021 Total Billed Treatment Time: 13 Total Billed Treatment 1 visit [facility] SHAIKH PT Apr 01, 2021 10:46
[2021-04-01] MEDS: ENOXAPARIN 40 MG/0.4 ML (LOVENOX) SYR SC SCH (12:45)
[2021-04-01 16:00] VITALS: BP 107/60
[2021-04-01] MEDS: ALPRAZolam 0.25 MG (XANAX) TAB PO PRN (18:07)
[2021-04-02 00:45] VITALS: BP 112/64
[2021-04-02] MEDS ORDERED: FUROSEMIDE 40 MG/4 ML INJ (LASIX) IVP ONE (01:30)
[2021-04-02] MEDS ORDERED: morphine INJ 4 MG/ML 1 ML (VIAL/SYRINGE) ONE (02:54)
[2021-04-02] MEDS ORDERED: morphine INJ 4 MG/ML 1 ML (VIAL/SYRINGE) IVP PRN (03:00)
== END 2021-04-02 03:05 | disposition expired | DRG 871 ==
LOC: EDUNIT# 12:11 → ER 12:13 → 4TH 14:45
PROVIDERS: ADMIT Family Medicine; ATTEND Family Medicine
DX: A41.9 Sepsis, unspecified organism (principal); J18.9 Pneumonia, unspecified organism; J96.01 Acute respiratory failure with hypoxia; C34.2 Malignant neoplasm of middle lobe, bronchus or lung; C78.39 Secondary malignant neoplasm of other respiratory organs; C79.51 Secondary malignant neoplasm of bone; I48.20 Chronic atrial fibrillation, unspecified; J44.0 Chronic obstructive pulmonary disease with (acute) lower respiratory infection; E46 Unspecified protein-calorie malnutrition; Z68.1 Body mass index [BMI] 19.9 or less, adult; Z66 Do not resuscitate; Z51.5 Encounter for palliative care; Z20.822 Contact with and (suspected) exposure to COVID-19; I25.10 Atherosclerotic heart disease of native coronary artery without angina pectoris; I10 Essential (primary) hypertension; K59.09 Other constipation; E87.6 Hypokalemia; Z91.81 History of falling; R54 Age-related physical debility; H54.7 Unspecified visual loss; F17.210 Nicotine dependence, cigarettes, uncomplicated; S00.12XA Contusion of left eyelid and periocular area, initial encounter; Z79.02 Long term (current) use of antithrombotics/antiplatelets; Z79.82 Long term (current) use of aspirin; Z88.1 Allergy status to other antibiotic agents; Z88.8 Allergy status to other drugs, medicaments and biological substances; W07.XXXA Fall from chair, initial encounter
CPT/HCPCS: 36415; 36600; 70450; 70486; 71045; 71046; 72125; 80048; 80053; 81000; 82805; 83605; 83735; 84484; 85007; 85025; 85027; 85610; 85730; 87040; 87088; 87220; 87636; 93005; 94640; 94760; 96365; 96375